=== PATIENT | female | born 1960 | race Caucasian/White ===

== ENCOUNTER → 2022-11-05 | Outpatient (CLI) | payer MEDICARE, BC ==
--- NOTE | 2022-11-07 20:34 | US ---
EXAMINATION TYPE: US arterial LE single level DATE OF EXAM: 11/05/2022 10:37 AM CLINICAL INDICATION: Female, 62 years old with history of I73.9; Pt states right foot cold, pt states wound center unable to obtain pulses right side History of: Smoker: No Hypertension: Yes Diabetic: Yes Hyperlipidemia: Yes TIA/CVA: No Previous Vascular Surgery: Prev CABG x 3 CAD: Yes MA: No Vascular Ulcers: Yes Claudication: No Gangrene: No Doppler Waveforms: Right: Multiphasic Left: Multiphasic Right Brachial Pressure: 146 Left Brachial Pressure: 142 Ankle-Brachial Indices: Right: 1.2 Left: 1.2 Toe Brachial Indices: Right: Unable to obtain due to small right great toe Left: Unable to obtain due to wound center bandages IMPRESSION: Normal brachial brachial indices bilaterally.
== END | disposition home or self-care (01) ==
LOC: RADUSWWP 10:15
PROVIDERS: ATTEND Podiatrist
DX: I73.9 Peripheral vascular disease, unspecified (principal); E11.621 Type 2 diabetes mellitus with foot ulcer; L97.522 Non-pressure chronic ulcer of other part of left foot with fat layer exposed; I25.118 Atherosclerotic heart disease of native coronary artery with other forms of angina pectoris; E78.5 Hyperlipidemia, unspecified; I10 Essential (primary) hypertension; E11.42 Type 2 diabetes mellitus with diabetic polyneuropathy; Z95.1 Presence of aortocoronary bypass graft
CPT/HCPCS: 93922

== ENCOUNTER 2023-01-28 09:00 | Inpatient (IN) | payer MEDICARE, BC ==
[2023-01-28] MEDS ORDERED: SODIUM CHLORIDE 0.9% 1,000 ML IV STA (09:24)
[2023-01-28] MEDS ORDERED: FAMOTIDINE 20 MG/2 ML VIAL IV STA (09:24)
--- NOTE | 2023-01-28 09:28 | ED ---
Recheck HPI - General Chief Complaint: Recheck/Abnormal Lab/Rx Stated Complaint: Abnormal labs Time Seen by Provider: 01/28/23 09:18 Source: patient, RN notes reviewed Mode of arrival: ambulatory Limitations: no limitations - History of Present Illness Initial Comments: This is a 62-year-old female who presents to the emergency department for abnormal blood work. Patient states that she had her left pinky toe amputated in September 2022 and has been on antibiotics since. She finished a 5 day course of Ciprofloxacin on 01/25, and later that day began Keflex. She had blood work done after receiving 1-2 doses of the Keflex on 01/25, and received a phone call yesterday saying that her kidney function was very poor and she needed to stop the antibiotics immediately and come to the emergency department. The surgery was done by Dr. Garcia, podiatry, at [facility]. However, he also practices here and she saw him at wound care this morning, and he also instructed her to come to the emergency department. She had been seeing an infectious disease special ist at [facility] as well, but does not wish to continue following up with him or at [facility]. She was told that the fourth toe may need to be amputated as well, which is part of the reason that she has been on so many antibiotics. Denies measuring any fevers, but states that she generally feels unwell. Reports problems with nausea and decreased urine output. States that she has not been able to urinate for 2 days. Denies any associated abdominal pain and she does not feel the urge to go. MD Complaint: abnormal lab - Related Data Home Medications Medication Instructions Recorded Confirmed Aspirin 81 mg PO DAILY 01/28/23 01/28/23 Atorvastatin Calcium [Lipitor] 40 mg PO HS 01/28/23 01/28/23 Lisinopril-Hctz 20-25 mg 1 tab PO DAILY 01/28/23 01/28/23 [Zestoretic 20-25] Metoprolol Tartrate [Lopressor] 50 mg PO BID 01/28/23 01/28/23 Pentoxifylline [TRENtal] 400 mg PO AC-TID 01/28/23 01/28/23 Vitamin B Complex 1 cap PO DAILY 01/28/23 01/28/23 amLODIPine [Norvasc] 2.5 mg PO DAILY 01/28/23 01/28/23 glipiZIDE [Glucotrol] 10 mg PO AC-BID 01/28/23 01/28/23 metFORMIN HCL 1,000 mg PO AC-BID 01/28/23 01/28/23 Allergies Allergy/AdvReac Type Severity Reaction Status Date / Time No Known Allergies Allergy Verified 01/28/23 10:35 Review of Systems ROS Statement: Those systems with pertinent positive or pertinent negative responses have been documented in the HPI. ROS Other: All systems not noted in ROS Statement are negative. Past Medical History Past Medical History: Coronary Artery Disease (CAD), Heart Failure, Diabetes Mellitus, Hypertension History of Any Multi-Drug Resistant Organisms: MRSA Date of last positivie culture/infection: 12/31/22 MDRO Source:: Left Foot Past Surgical History: Joint Replacement, Orthopedic Surgery Past Psychological History: No Psychological Hx Reported Smoking Status: Never smoker Past Alcohol Use History: None Reported Past Drug Use History: None Reported General Exam Limitations: no limitations General appearance: alert, in no apparent distress Head exam: Present: atraumatic, normocephalic, normal inspection Respiratory exam: Present: normal lung sounds bilaterally. Absent: respiratory distress, wheezes, rales, rhonchi, stridor Cardiovascular Exam: Present: regular rate, normal rhythm, normal heart sounds. Absent: systolic murmur, diastolic murmur, rubs, gallop, clicks Extremities exam: Present: other (Left foot bandage in place) Neurological exam: Present: alert, oriented X3, CN II-XII intact Psychiatric exam: Present: normal affect, normal mood Course Vital Signs 01/28/23 01/28/23 01/28/23 09:08 10:12 11:45 Temperature 98.1 F 97.4 F L Pulse Rate 59 L 56 L 71 Respiratory 20 17 18 Rate Blood Pressure 114/75 102/81 108/52 O2 Sat by Pulse 99 98 100 Oximetry 01/28/23 12:06 Temperature Pulse Rate 73 Respiratory 18 Rate Blood Pressure 101/54 O2 Sat by Pulse 100 Oximetry Medical Decision Making - Medical Decision Making This is a 62-year-old female who presents to the emergency department for abnormal blood work demonstrating poor renal function. Was pt. sent in by a medical professional or institution? @ -Yes, Dr. Garcia and infectious disease Did you speak to anyone other than the patient for history? @ -No Did you review nursing and triage notes? @ -Yes, and I agree, it is accurate with regards to the patient's symptoms. Were old charts reviewed? @ -Yes, XR of the left foot from 01/14/23, demonstrating concerning changes suspicious for osteomyelitis in the areas of the fourth toe and amputation site of the fifth toe. Differential Diagnosis? @ -Differential Poor Renal Function: Dehydration, medication, diabetes, HTN, infection, this is not meant to be an all-inclusive list. EKG interpreted by me (3pts min.)? @ -EKG interpreted by me demonstrating the following: Sinus bradycardia. Ventricular rate 57 beats per minute, TN interval 169 ms, QRS duration 80 ms, QTC 221 ms. X-rays interpreted by me (1pt min.)? @ -X-ray of the left foot obtained. My interpretation identifies lucencies throughout the fourth metatarsal shaft. CT interpreted by me (1pt min.)? @ -Not obtained U/S interpreted by me (1pt. min.)? @ -Not obtained What testing was considered but not performed? (CT, X-rays, U/S, labs)? Why? @ -None What meds were considered but not given? Why? @ -None Did you discuss the management of the patient with other professionals? @ -Yes, Dr. Castro, nephrology, who advised hyperkalemia cocktail with D5 and bicarb drip. Pharmacy recommended Daptomycin for antibiotic management. Dr. Callahan accepts the patient for admission. Did you reconcile home meds? @ -No Was smoking cessation discussed for >3mins.? @ -No Was critical care preformed (if so, how long)? @ -No Were there social determinants of health that impacted care today? How? (Homelessness, low income, unemployed, alcoholism, drug addiction, transportation, low edu. Level, literacy, decrease access to med. care, fpc, rehab)? @ -No Was there de-escalation of care discussed even if they declined? (Discuss DNR or withdrawal of care, Hospice)? @ -No What co-morbidities impacted this encounter? (DM, HTN, Smoking, COPD, CAD, Cancer, CVA, Hep., AIDS, mental health diagnosis, sleep apnea, morbid obesity)? @ -DM Was patient admitted / discharged? @ -Admitted. Lab work obtained revealing leukocytosis with a WBC of 14.4 and lactic acid of 6.3. She has multiple electrolyte abnormalities, including a potassium of 6.6, carbon dioxide of 9, creatinine of 9.73, and GFR 4. Phosphorus is 13.7. X-ray of the left foot obtained as well revealing concern for ongoing osteomyelitis at the fourth MTP joint with progressive osteolysis an d permeative lucency when compared with the x-ray on 01/14/23. Patient was given a hyperkalemia cocktail consisting of Lokelma, insulin, dextrose, sodium bicarbonate, and calcium gluconate. Case discussed with Dr. Castro, nephrology, who also advised a dextrose with bicarb drip. This was also ordered. I discussed the patient's case with pharmacy, given the concern for osteomyelitis with severe renal failure. He advised daptomycin in place of vancomycin due to it being slightly less nephrotoxic. Blood cultures and daptomycin ordered. Nephrology also requested a vascular consult for stat dialysis port placement. Patient admitted to medicine for hyperkalemia, renal failure, and osteomyelitis. Consult placed for Dr. Garcia, infectious disease, and nephrology, who already evaluated the patient. Dr. Ruano, vascular surgery, took the patient to the Incident Response Coordinator from the emergency department for stat dialysis port placement. Baez catheter was also placed due to lack of urine output. Undiagnosed new problem with uncertain prognosis? @ -None Drug Therapy requiring intensive monitoring for toxicity (Heparin, Nitro, Insulin, Cardizem)? @ -None Were any procedures done? @ -None Diagnosis/symptom? @ -Osteomyelitis, renal failure, hyperkalemia Acute, or Chronic, or Acute on Chronic? @ -Acute Uncomplicated (without systemic symptoms) or Complicated (systemic symptoms)? @ -Complicated Side effects of treatment? @ -None Exacerbation, Progression, or Severe Exacerbation] @ -Not applicable Poses a threat to life or bodily function? @ -Yes This case was discussed in detail with the attending ED physician, Dr. Licea. Presentation, findings, and treatment plan discussed in detail as well. - Lab Data Result diagrams: 01/28/23 09:28 01/28/23 13:25 Lab Results 01/28/23 01/28/23 01/28/23 Range/Units 09:28 09:28 09:28 WBC 14.4 H (3.8-10.6) k/uL RBC 3.85 (3.80-5.40) m/uL Hgb 11.8 (11.4-16.0) gm/dL Hct 35.9 (34.0-46.0) % MCV 93.2 (80.0-100.0) fL MCH 30.7 (25.0-35.0) pg MCHC 32.9 (31.0-37.0) g/dL RDW 15.3 (11.5-15.5) % Plt Count 483 H (150-450) k/uL MPV 7.9 Neutrophils % 84 % Lymphocytes % 12 % Monocytes % 2 % Eosinophils % 0 % Basophils % 0 % Neutrophils # 12.1 H (1.3-7.7) k/uL Lymphocytes # 1.7 (1.0-4.8) k/uL Monocytes # 0.3 (0-1.0) k/uL Eosinophils # 0.1 (0-0.7) k/uL Basophils # 0.1 (0-0.2) k/uL ESR 117 H (0-30) mm/Hr Sodium 137 (137-145) mmol/L Potassium 6.6 H* (3.5-5.1) mmol/L Chloride 97 L (98-107) mmol/L Carbon Dioxide 9 L* (22-30) mmol/L Anion Gap 31 mmol/L BUN 103 H* (7-17) mg/dL Creatinine 9.73 H* (0.52-1.04) mg/dL Est GFR (CKD-EPI)AfAm 4 (>60 ml/min/1.73 sqM) Est GFR (CKD-EPI)NonAf 4 (>60 ml/min/1.73 sqM) Glucose 113 H (74-99) mg/dL Lactic Ac Sepsis Rflx Plasma Lactic Acid Lobtio 6.3 H* (0.7-2.0) mmol/L Calcium 9.6 (8.4-10.2) mg/dL Phosphorus (2.5-4.5) mg/dL Magnesium (1.6-2.3) mg/dL Total Bilirubin 0.4 (0.2-1.3) mg/dL AST 32 (14-36) U/L ALT 57 H (4-34) U/L Alkaline Phosphatase 60 (38-126) U/L C-Reactive Protein 5.3 H (<1.0) mg/dL Total Protein 7.8 (6.3-8.2) g/dL Albumin 4.3 (3.5-5.0) g/dL 01/28/23 01/28/23 Range/Units 09:28 10:03 WBC (3.8-10.6) k/uL RBC (3.80-5.40) m/uL Hgb (11.4-16.0) gm/dL Hct (34.0-46.0) % MCV (80.0-100.0) fL MCH (25.0-35.0) pg MCHC (31.0-37.0) g/dL RDW (11.5-15.5) % Plt Count (150-450) k/uL MPV Neutrophils % % Lymphocytes % % Monocytes % % Eosinophils % % Basophils % % Neutrophils # (1.3-7.7) k/uL Lymphocytes # (1.0-4.8) k/uL Monocytes # (0-1.0) k/uL Eosinophils # (0-0.7) k/uL Basophils # (0-0.2) k/uL ESR (0-30) mm/Hr Sodium (137-145) mmol/L Potassium (3.5-5.1) mmol/L Chloride (98-107) mmol/L Carbon Dioxide (22-30) mmol/L Anion Gap mmol/L BUN (7-17) mg/dL Creatinine (0.52-1.04) mg/dL Est GFR (CKD-EPI)AfAm (>60 ml/min/1.73 sqM) Est GFR (CKD-EPI)NonAf (>60 ml/min/1.73 sqM) Glucose (74-99) mg/dL Lactic Ac Sepsis Rflx Y Plasma Lactic Acid Lobito (0.7-2.0) mmol/L Calcium (8.4-10.2) mg/dL Phosphorus 13.7 H* (2.5-4.5) mg/dL Magnesium 1.8 (1.6-2.3) mg/dL Total Bilirubin (0.2-1.3) mg/dL AST (14-36) U/L ALT (4-34) U/L Alkaline Phosphatase (38-126) U/L C-Reactive Protein (<1.0) mg/dL Total Protein (6.3-8.2) g/dL Albumin (3.5-5.0) g/dL - Radiology Data Radiology results: report reviewed, image reviewed Disposition Clinical Impression: Osteomyelitis of left foot, Hyperkalemia, SEAN (acute kidney injury) Disposition: ADMITTED IP TO THIS HOSP
[2023-01-28 09:54] LABS: Basophils # (A) 0.1 k/uL (0-0.2); Basophils % (A) 0 %; Eosinophils # (A) 0.1 k/uL (0-0.7); Eosinophils % (A) 0 %; HCT 35.9 % (34.0-46.0); HGB 11.8 gm/dL (11.4-16.0); Lymphocytes # (A) 1.7 k/uL (1.0-4.8); Lymphocytes % (A) 12 %; MCH 30.7 pg (25.0-35.0); MCHC 32.9 g/dL (31.0-37.0); MCV 93.2 fL (80.0-100.0); Mean Platelet Volume 7.9; Monocytes # (A) 0.3 k/uL (0-1.0); Monocytes % (A) 2 %; Neutrophils # (A) 12.1 k/uL (1.3-7.7); Neutrophils % (A) 84 %; Platelet Count 483 k/uL (150-450); RBC 3.85 m/uL (3.80-5.40); RDW 15.3 % (11.5-15.5); WBC 14.4 k/uL (3.8-10.6)
[2023-01-28 10:02] LABS: ALT 57 U/L (4-34); AST 32 U/L (14-36); African American GFR (CKD) 4 (>60 ml/min/1.73 sqM); Albumin 4.3 g/dL (3.5-5.0); Alkaline Phosphatase 60 U/L (38-126); Anion Gap 31 mmol/L; C Reactive Protein 5.3 mg/dL (<1.0); Calcium 9.6 mg/dL (8.4-10.2); Chloride 97 mmol/L (98-107); Glucose 113 mg/dL (74-99); Non-African American GFR(CKD) 4 (>60 ml/min/1.73 sqM); Sodium 137 mmol/L (137-145); Total Bilirubin 0.4 mg/dL (0.2-1.3); Total Protein 7.8 g/dL (6.3-8.2)
[2023-01-28 10:13] LABS: Blood Urea Nitrogen 103 mg/dL (7-17); Carbon Dioxide 9 mmol/L (22-30)
[2023-01-28 10:17] LABS: Potassium 6.6 mmol/L (3.5-5.1)
--- NOTE | 2023-01-28 10:17 | XR ---
EXAMINATION TYPE: XR foot complete 3 views LT DATE OF EXAM: 01/28/2023 Comparison: 01/14/2023 Clinical History: 62-year-old female Infection and pain. Findings: Previous osteotomy at the level of the proximal shaft of the fifth metatarsal. No progressive osseous destruction identified at the osteotomy margin. However, there is bony destruction redemonstrated centered at the fourth MTP joint with loss of the f ourth metatarsal head and neck. There is further permeative lucencies seen throughout the mid to dist al fourth metatarsal shaft and further osteolysis involving the base of the proximal phalanx. Suspicious and needle fragments retained in the plantar soft tissues of the great toe. Some dorsal di slocations of the second and third toes. Severe hallux valgus deformity. Moderate-sized plantar heel spur. Impression: 1. Correlate for ongoing osteomyelitis centered at the fourth MTP joint with progressive osteolysis a nd permeative lucency compared to 01/14/2023. 2. No progressive abnormality at the fifth amputation margin. There may have been some interval heali ng change here compared to 01/14/2023.
[2023-01-28] MEDS ORDERED: MAG HYDROX/AL HYDROX/SIMETH 30 ML, HYOSCYAMINE ELIXIR 10 ML, LIDOCAINE VISCOUS 2% 10 ML PO STA ×3 (10:22)
[2023-01-28] MEDS ORDERED: ONDANSETRON 4 MG/2 ML VIAL IVP STA (10:22)
[2023-01-28] MEDS ORDERED: CALCIUM GLUCONATE IN NACL 1 GM in SALINE 1 100ML.BAG IVPB ONE (10:32)
[2023-01-28] MEDS ORDERED: DEXTROSE 50% SYRINGE 50 ML IVP ONE (10:32)
[2023-01-28] MEDS ORDERED: INSULIN REGULAR 100 UNIT/ML VIAL (IV) IV ONE (10:32)
[2023-01-28] MEDS ORDERED: SODIUM ZIRCONIUM CYCLOSILICATE 10 GM PACKET PO ONE (10:32)
[2023-01-28] MEDS ORDERED: SODIUM BICARB 8.4% 50 ML SYR (1 MEQ/ML) IV STA (10:40)
[2023-01-28] MEDS ORDERED: DEXTROSE 10% IN WATER 500 ML in EMPTY BAG 1 BAG IV SCH (10:45)
[2023-01-28] MEDS ORDERED: ACETAMINOPHEN TAB 325 MG TAB PO PRN (11:04)
[2023-01-28] MEDS ORDERED: NALOXONE 0.4 MG/ML 1 ML VIAL IV PRN (11:04)
[2023-01-28] MEDS ORDERED: ONDANSETRON 4 MG/2 ML VIAL IVP PRN (11:04)
[2023-01-28] MEDS ORDERED: DEXTROSE 5% IN WATER 1,000 ML with SODIUM BICARB (1 MEQ/ML) 100 ML IV SCH (11:30)
[2023-01-28] MEDS: DAPTOmycin 500 MG in SODIUM CHLORIDE 0.9% 50 ML IVPB SCH (11:35)
[2023-01-28 11:59] LABS: Magnesium 1.8 mg/dL (1.6-2.3)
--- NOTE | 2023-01-28 12:11 | P.NPCON ---
History of Present Illness - Reason for Consult acute renal failure - History of Present Illness Reason for consultation: Acute kidney injury History of present illness: Patient is a 62-year-old female seen in consultation for acute kidney injury. Patient's creatinine in October 2022 was 0.87. This admission was elevated at 9.73. Potassium is elevated at 6.6 and patient is extremely acidotic with a bi carb level of 9. Lactic acid is elevated at 6.3. Patient is awake and alert. Patient states she underwent left small toe habitation in September 2022 and has been on multiple antibiotics since. Patient states she is still being treated and may require further amputations. Patient states she was on Bactrim but hasn't taken it in over a week as the antibiotic was switched to a different one by infectious disease. She was also on lisinopril, thiazide diuretic as well as metformin prior to admission. She denies use of nonsteroidals. She does have history of coronary disease and is status post CABG. She hasn't voided in the last 2 days. No vomiting or diarrhea. No nausea. Blood pressure stable. Denies family history of renal disease. Vital signs are stable. General: No acute distress. HEENT: Head exam is unremarkable. LUNGS: No audible rhonchi or wheezes. HEART: Rate and Rhythm are regular. ABDOMEN: Nontender. EXTREMITITES: No edema. Past Medical History Past Medical History: Coronary Artery Disease (CAD), Heart Failure, Diabetes Mellitus, Hypertension History of Any Multi-Drug Resistant Organisms: MRSA Date of last positivie culture/infection: 12/31/22 MDRO Source:: Left Foot Past Surgical History: Joint Replacement, Orthopedic Surgery Past Psychological History: No Psychological Hx Reported Smoking Status: Never smoker Past Alcohol Use History: None Reported Past Drug Use History: None Reported Medications and Allergies Home Medications Medication Instructions Recorded Confirmed Type Aspirin 81 mg PO DAILY 01/28/23 01/28/23 History Atorvastatin Calcium [Lipitor] 40 mg PO HS 01/28/23 01/28/23 History Lisinopril-Hctz 20-25 mg 1 tab PO DAILY 01/28/23 01/28/23 History [Zestoretic 20-25] Metoprolol Tartrate [Lopressor] 50 mg PO BID 01/28/23 01/28/23 History Pentoxifylline [TRENtal] 400 mg PO AC-TID 01/28/23 01/28/23 History Vitamin B Complex 1 cap PO DAILY 01/28/23 01/28/23 History amLODIPine [Norvasc] 2.5 mg PO DAILY 01/28/23 01/28/23 History glipiZIDE [Glucotrol] 10 mg PO AC-BID 01/28/23 01/28/23 History metFORMIN HCL 1,000 mg PO AC-BID 01/28/23 01/28/23 History Allergies Allergy/AdvReac Type Severity Reaction Status Date / Time No Known Allergies Allergy Verified 01/28/23 10:35 Physical Exam Vitals: Vital Signs Temp Pulse Resp BP Pulse Ox 01/28/23 11:45 71 18 108/52 100 01/28/23 10:12 97.4 F L 56 L 17 102/81 98 01/28/23 09:08 98.1 F 59 L 20 114/75 99 Intake and Output 01/27/23 01/28/23 01/28/23 22:59 06:59 14:59 Output Total 20 Balance -20 Output: Urine 20 Uretheral (Baez) 20 Other: Weight 79.379 kg Results - Lab Results Most recent lab results Calcium 9.6 mg/dL (8.4-10.2) 01/28/23 09:28 01/28/23 09:28 01/28/23 09:28 Assessment and Plan Plan: Assessment: 1. Acute kidney injury secondary to ATN. Worsened with the use of diuretic, HUMA inhibitor. Baseline creatinine near 0.87 from October 2022 and elevated at 9.73 this admission. 2. Hyperkalemia secondary to acute kidney injury, metabolic acidosis and lisinopril. 3. Metabolic acidosis secondary to acute kidney injury, lactic acidosis, metformin. 4. Benign hypertension. Controlled. 5. Left foot osteomyelitis. Plan: Patient received IV calcium gluconate, IV insulin with D50, sodium bicarbonate as well as lokelma. Start bicarb drip at 100 mL an hour. Insert Baez catheter for strict is and os. Check renal ultrasound. Check UA. Check urine eosinophils. Check serologies. Consult vascular surgery for dialysis catheter placement. Plan for hemodialysis today. Continue to assess need for renal replacement therapy and daily basis. Thank you for the consultation. I will continue to follow the patient with you during her hospital stay.
[2023-01-28 12:15] LABS: Phosphorus 13.7 mg/dL (2.5-4.5)
[2023-01-28] MEDS: DEXTROSE 5% IN WATER 1,000 ML with SODIUM BICARB (1 MEQ/ML) 150 ML IV SCH ×2 (12:25→23:50)
[2023-01-28 13:03] LABS: Amorphous Sediment,Urine Occasional /hpf; Appearance,Urine Turbid (Clear); Bacteria,Urine Rare /hpf; Bilirubin,Urine Negative (Negative); Blood,Urine Small (Negative); Color,Urine Yellow; Glucose,Urine (UA) Trace (Negative); Ketones,Urine Trace (Negative); Leukocyte Esterase,Urine Trace (Negative); Mucus,Urine Occasional /hpf; Nitrite,Urine Negative (Negative); PH, Urine 5.5 (5.0-8.0); Protein,Urine 2+ (Negative); RBC,Urine 6 /hpf (0-5); Specific Gravity,Urine 1.018 (1.001-1.035); Squamous Epithelial Cell,Urine 7 /hpf (0-4); WBC,Urine 19 /hpf (0-5)
--- NOTE | 2023-01-28 13:36 | P.GSCN ---
History of Present Illness History of present illness: 62-year-old white female, patient came to the emergency room patient has been coming to the wound clinic post toe amputation for on the right side with open wound patient has been antibiotic for foot wound and patient today creatinine is 9.73 and potassium 6.5 patient is acidotic consulted for placement of a dialysis catheter this patient has history of CABG in the past diabetes Neck examination neck is supple no bruit appreciated Chest is clear few rhonchi at the lung bases first and second sound present abdomen soft nontender Patient has a post toe amputation toe open wound under care of Dr. Garcia Plan placement of the dialysis catheter risk and complication discussed Past Medical History Past Medical History: Coronary Artery Disease (CAD), Heart Failure, Diabetes Mellitus, Hypertension History of Any Multi-Drug Resistant Organisms: MRSA Year Discovered:: 12/31/22 MDRO Source:: Left Foot Past Surgical History: Joint Replacement, Orthopedic Surgery Past Psychological History: No Psychological Hx Reported Smoking Status: Never smoker Past Alcohol Use History: None Reported Past Drug Use History: None Reported Medications and Allergies Home Medications Medication Instructions Recorded Confirmed Type Aspirin 81 mg PO DAILY 01/28/23 01/28/23 History Atorvastatin Calcium [Lipitor] 40 mg PO HS 01/28/23 01/28/23 History Lisinopril-Hctz 20-25 mg 1 tab PO DAILY 01/28/23 01/28/23 History [Zestoretic 20-25] Metoprolol Tartrate [Lopressor] 50 mg PO BID 01/28/23 01/28/23 History Pentoxifylline [TRENtal] 400 mg PO AC-TID 01/28/23 01/28/23 History Vitamin B Complex 1 cap PO DAILY 01/28/23 01/28/23 History amLODIPine [Norvasc] 2.5 mg PO DAILY 01/28/23 01/28/23 History glipiZIDE [Glucotrol] 10 mg PO AC-BID 01/28/23 01/28/23 History metFORMIN HCL 1,000 mg PO AC-BID 01/28/23 01/28/23 History Allergies Allergy/AdvReac Type Severity Reaction Status Date / Time No Known Allergies Allergy Verified 01/28/23 10:35 Surgical - Exam Vital Signs Temp Pulse Resp BP Pulse Ox 98.1 F 59 L 20 114/75 99 01/28/23 09:08 01/28/23 09:08 01/28/23 09:08 01/28/23 09:08 01/28/23 09:08 Results - Labs 01/28/23 09:28 01/28/23 09:28 Abnormal Lab Results - Last 24 Hours (Table) 01/28/23 01/28/23 01/28/23 Range/Units 09:28 09:28 09:28 WBC 14.4 H (3.8-10.6) k/uL Plt Count 483 H (150-450) k/uL Neutrophils # 12.1 H (1.3-7.7) k/uL Potassium 6.6 H* (3.5-5.1) mmol/L Chloride 97 L (98-107) mmol/L Carbon Dioxide 9 L* (22-30) mmol/L BUN 103 H* (7-17) mg/dL Creatinine 9.73 H* (0.52-1.04) mg/dL Glucose 113 H (74-99) mg/dL Plasma Lactic Acid Lobito 6.3 H* (0.7-2.0) mmol/L Phosphorus (2.5-4.5) mg/dL ALT 57 H (4-34) U/L C-Reactive Protein 5.3 H (<1.0) mg/dL Urine Appearance (Clear) Urine Protein (Negative) Urine Glucose (UA) (Negative) Urine Ketones (Negative) Urine Blood (Negative) Ur Leukocyte Esterase (Negative) Urine RBC (0-5) /hpf Urine WBC (0-5) /hpf Ur Squamous Epith Cells (0-4) /hpf Amorphous Sediment (None) /hpf Urine Bacteria (None) /hpf Urine Mucus (None) /hpf 01/28/23 01/28/23 01/28/23 Range/Units 09:28 12:14 12:20 WBC (3.8-10.6) k/uL Plt Count (150-450) k/uL Neutrophils # (1.3-7.7) k/uL Potassium (3.5-5.1) mmol/L Chloride (98-107) mmol/L Carbon Dioxide (22-30) mmol/L BUN (7-17) mg/dL Creatinine (0.52-1.04) mg/dL Glucose (74-99) mg/dL Plasma Lactic Acid Lobito 9.5 H* (0.7-2.0) mmol/L Phosphorus 13.7 H* (2.5-4.5) mg/dL ALT (4-34) U/L C-Reactive Protein (<1.0) mg/dL Urine Appearance Turbid H (Clear) Urine Protein 2+ H (Negative) Urine Glucose (UA) Trace H (Negative) Urine Ketones Trace H (Negative) Urine Blood Small H (Negative) Ur Leukocyte Esterase Trace H (Negative) Urine RBC 6 H (0-5) /hpf Urine WBC 19 H (0-5) /hpf Ur Squamous Epith Cells 7 H (0-4) /hpf Amorphous Sediment Occasional H (None) /hpf Urine Bacteria Rare H (None) /hpf Urine Mucus Occasional H (None) /hpf Diabetes panel 01/28/23 Range/Units 09:28 Sodium 137 (137-145) mmol/L Potassium 6.6 H* (3.5-5.1) mmol/L Chloride 97 L (98-107) mmol/L Carbon Dioxide 9 L* (22-30) mmol/L BUN 103 H* (7-17) mg/dL Creatinine 9.73 H* (0.52-1.04) mg/dL Glucose 113 H (74-99) mg/dL Calcium 9.6 (8.4-10.2) mg/dL AST 32 (14-36) U/L ALT 57 H (4-34) U/L Alkaline Phosphatase 60 (38-126) U/L Total Protein 7.8 (6.3-8.2) g/dL Albumin 4.3 (3.5-5.0) g/dL Calcium panel 01/28/23 01/28/23 Range/Units 09:28 09:28 Calcium 9.6 (8.4-10.2) mg/dL Phosphorus 13.7 H* (2.5-4.5) mg/dL Albumin 4.3 (3.5-5.0) g/dL Pituitary panel 01/28/23 Range/Units 09:28 Sodium 137 (137-145) mmol/L Potassium 6.6 H* (3.5-5.1) mmol/L Chloride 97 L (98-107) mmol/L Carbon Dioxide 9 L* (22-30) mmol/L BUN 103 H* (7-17) mg/dL Creatinine 9.73 H* (0.52-1.04) mg/dL Glucose 113 H (74-99) mg/dL Calcium 9.6 (8.4-10.2) mg/dL Adrenal panel 01/28/23 Range/Units 09:28 Sodium 137 (137-145) mmol/L Potassium 6.6 H* (3.5-5.1) mmol/L Chloride 97 L (98-107) mmol/L Carbon Dioxide 9 L* (22-30) mmol/L BUN 103 H* (7-17) mg/dL Creatinine 9.73 H* (0.52-1.04) mg/dL Glucose 113 H (74-99) mg/dL Calcium 9.6 (8.4-10.2) mg/dL Total Bilirubin 0.4 (0.2-1.3) mg/dL AST 32 (14-36) U/L ALT 57 H (4-34) U/L Alkaline Phosphatase 60 (38-126) U/L Total Protein 7.8 (6.3-8.2) g/dL Albumin 4.3 (3.5-5.0) g/dL
[2023-01-28] MEDS ORDERED: IV FLUID CONTINUATION 1,000 ML IV ONE (13:38)
[2023-01-28] MEDS ORDERED: LIDOCAINE 1% INJ 10MG/ML (20 ML MDV) SQ ONE (13:41)
[2023-01-28] MEDS ORDERED: fentaNYL (PF) 50 MCG/ML 2 ML AMP IVP ONE (13:41)
[2023-01-28] MEDS ORDERED: MIDAZOLAM 2 MG/2 ML VIAL IVP ONE (13:41)
--- NOTE | 2023-01-28 13:59 | US ---
EXAMINATION TYPE: US kidneys/renal and bladder DATE OF EXAM: 01/28/2023 COMPARISON: NONE CLINICAL INDICATION: Female, 62 years old with history of sean; SEAN. EXAM MEASUREMENTS: Right Kidney: 13.3 x 5.2 x 4.5 cm Left Kidney: 12.1 x 5.3 x 4.9 cm Right Kidney: Enlarged. Left Kidney: No hydronephrosis or masses seen. Bladder: Not distended, unable to evaluate. Bilateral Jets seen: No IMPRESSION: 1. Kidneys are mildly prominent right more so than left. No suspicious abnormalities by ultrasound. 2. Limited evaluation of the urinary bladder.
--- NOTE | 2023-01-28 14:12 | P.PCN ---
Description of Procedure: Preop diagnoses is acute chronic renal failure Posterior same Procedure note sound guided 20 same dialysis Placed right femoral approach patient brought to the Interface Developer. Prepped and draped applied sterile manner. Ultrasound-guided micropuncture introducer right femoral vein micropuncture guidewire was passed. Then we passed a dilator on the top of guidewire then we passed a regular guidewire which was parked in the inferior vena cava without any resistance dilator was advanced. The guidewire then replaced a dialysis catheter guidewire was removed flushed with heparin saline and Hep-Lock secured with 3-0 nylon patient for the procedure well
--- NOTE | 2023-01-28 14:28 | IR ---
EXAMINATION TYPE: IR cvc insert non tunneled DATE OF EXAM: 01/28/2023 COMPARISON: NONE HISTORY: Fluoroscopy time. Fluoroscopy was provided to the referring clinician.
[2023-01-28 14:45] LABS: Glucose,Whole Blood 102 mg/dL (70-110)
[2023-01-28] MEDS ORDERED: DEXTROSE 50% SYRINGE 50 ML IVP PRN ×2 (14:55)
--- NOTE | 2023-01-28 14:56 | P.HPIM ---
History of Present Illness H&P Date: 01/28/23 History of present illness; patient is 62-year-old lady with past medical history significant for hyperlipidemia, hypertension, diabetes mellitus presented to the ER for abnormal labs. Patient stated that she was all right 2 days back he started feeling sick. Patient was feeling lethargic and tired. Patient also having nausea and vomiting afterwards. Patient recently had a left toe amputated in September and was on antibiotics for osteomyelitis. Patient went to see her ID doctor yesterday and they ordered blood work. Her blood work came back showing worsening renal functions for which her ID doctor told her to come to the ER. Initial lab work done in the ER showed WBC 14.4, hemoglobin 11.8, platelet count 43, sodium 137, potassium 6.6, BUN 103, creatinine 19.73, lactate 6.3 phosphorous 13.7 X-ray of the foot done showed osteomyelitis Centered at the fourth MTP joint EKG done in the ER Patient was admitted to medicine service REVIEW OF SYSTEMS: CONSTITUTIONAL: No fever, complaining of lethargy and tiredness HEENT: No recent visual problems or hearing problems. Denied any sore throat. CARDIOVASCULAR: No chest pain, orthopnea, PND, no palpitations, no syncope. PULMONARY: No shortness of breath, no cough, no hemoptysis. GASTROINTESTINAL as mentioned above NEUROLOGICAL: No headaches, no weakness, no numbness. HEMATOLOGICAL: Denies any bleeding or petechiae. GENITOURINARY: Denies any burning micturition, frequency, or urgency. MUSCULOSKELETAL/RHEUMATOLOGICAL: Denies any joint pain, swelling, or any muscle pain. ENDOCRINE: Denies any polyuria or polydipsia. The rest of the 14-point review of systems is negative. PHYSICAL EXAMINATION: GENERAL: The patient is alert and oriented x3, not in any acute distress. Well developed, well nourished. HEENT: Pupils are round and equally reacting to light. EOMI. No scleral icterus. No conjunctival pallor. Normocephalic, atraumatic. No pharyngeal erythema. No thyromegaly. CARDIOVASCULAR: S1 and S2 present. No murmurs, rubs, or gallops. PULMONARY: Chest is clear to auscultation, no wheezing or crackles. ABDOMEN: Soft, nontender, nondistended, normoactive bowel sounds. No palpable organomegaly. MUSCULOSKELETAL: No joint swelling or deformity. Left foot bandaged seen EXTREMITIES: No cyanosis, clubbing, or pedal edema. NEUROLOGICAL: Gross neurological examination did not reveal any focal deficits. SKIN: No rashes. Assessment and plan Hyperkalemia Acute kidney injury History of left foot osteomyelitis Lactic acidosis Hyperphosphatemia Hyperlipidemia [id number] diabetes mellitus Hypertension Monitor vital signs Monitor CBC Monitor CMP Continue telemetry monitoring Follow-up on blood cultures monitor lactate levels Patient was started on hyperkalemia protocol Continue bicarb drip Continue daptomycin Monitor blood sugar levels, continue sliding scale insulin ID consulted Nephrology consulted, recommendeddialysis catheter placement and initiating patient on dialysis Vascular surgery consulted Labs and medication were reviewed.. Continue same treatment. Continue with symptomatic treatment. Resume home medication. Monitor labs and vitals. DVT and GI prophylaxis. Further recommendations as per clinical course of the patient Dictation was produced using [employer] dictation software. please excuse any grammatical, word or spelling errors. Past Medical History Past Medical History: Coronary Artery Disease (CAD), Heart Failure, Diabetes Mellitus, Hypertension History of Any Multi-Drug Resistant Organisms: MRSA Date of last positivie culture/infection: 12/31/22 MDRO Source:: Left Foot Past Surgical History: Joint Replacement, Orthopedic Surgery Past Psychological History: No Psychological Hx Reported Smoking Status: Never smoker Past Alcohol Use History: None Reported Past Drug Use History: None Reported Medications and Allergies Home Medications Medication Instructions Recorded Confirmed Type Aspirin 81 mg PO DAILY 01/28/23 01/28/23 History Atorvastatin Calcium [Lipitor] 40 mg PO HS 01/28/23 01/28/23 History Lisinopril-Hctz 20-25 mg 1 tab PO DAILY 01/28/23 01/28/23 History [Zestoretic 20-25] Metoprolol Tartrate [Lopressor] 50 mg PO BID 01/28/23 01/28/23 History Pentoxifylline [TRENtal] 400 mg PO AC-TID 01/28/23 01/28/23 History Vitamin B Complex 1 cap PO DAILY 01/28/23 01/28/23 History amLODIPine [Norvasc] 2.5 mg PO DAILY 01/28/23 01/28/23 History glipiZIDE [Glucotrol] 10 mg PO AC-BID 01/28/23 01/28/23 History metFORMIN HCL 1,000 mg PO AC-BID 01/28/23 01/28/23 History Allergies Allergy/AdvReac Type Severity Reaction Status Date / Time No Known Allergies Allergy Verified 01/28/23 10:35 Physical Exam Vitals: Vital Signs Temp Pulse Resp BP Pulse Ox 01/28/23 12:06 73 18 101/54 100 01/28/23 11:45 71 18 108/52 100 01/28/23 10:12 97.4 F L 56 L 17 102/81 98 01/28/23 09:08 98.1 F 59 L 20 114/75 99 Intake and Output 01/27/23 01/28/23 01/28/23 22:59 06:59 14:59 Intake Total 10 Output Total 20 Balance -10 Intake: IV 10 Output: Urine 20 Uretheral (Baez) 20 Other: Weight 79.379 kg Results CBC & Chem 7: 01/28/23 09:28 01/28/23 13:25 Labs: Abnormal Lab Results - Last 24 Hours (Table) 01/28/23 01/28/23 01/28/23 Range/Units 09:28 09:28 09:28 WBC 14.4 H (3.8-10.6) k/uL Plt Count 483 H (150-450) k/uL Neutrophils # 12.1 H (1.3-7.7) k/uL Potassium 6.6 H* (3.5-5.1) mmol/L Chloride 97 L (98-107) mmol/L Carbon Dioxide 9 L* (22-30) mmol/L BUN 103 H* (7-17) mg/dL Creatinine 9.73 H* (0.52-1.04) mg/dL Glucose 113 H (74-99) mg/dL Plasma Lactic Acid Lobito 6.3 H* (0.7-2.0) mmol/L Phosphorus (2.5-4.5) mg/dL ALT 57 H (4-34) U/L C-Reactive Protein 5.3 H (<1.0) mg/dL Urine Appearance (Clear) Urine Protein (Negative) Urine Glucose (UA) (Negative) Urine Ketones (Negative) Urine Blood (Negative) Ur Leukocyte Esterase (Negative) Urine RBC (0-5) /hpf Urine WBC (0-5) /hpf Ur Squamous Epith Cells (0-4) /hpf Amorphous Sediment (None) /hpf Urine Bacteria (None) /hpf Urine Mucus (None) /hpf 01/28/23 01/28/23 01/28/23 Range/Units 09:28 12:14 12:20 WBC (3.8-10.6) k/uL Plt Count (150-450) k/uL Neutrophils # (1.3-7.7) k/uL Potassium (3.5-5.1) mmol/L Chloride (98-107) mmol/L Carbon Dioxide (22-30) mmol/L BUN (7-17) mg/dL Creatinine (0.52-1.04) mg/dL Glucose (74-99) mg/dL Plasma Lactic Acid Lobito 9.5 H* (0.7-2.0) mmol/L Phosphorus 13.7 H* (2.5-4.5) mg/dL ALT (4-34) U/L C-Reactive Protein (<1.0) mg/dL Urine Appearance Turbid H (Clear) Urine Protein 2+ H (Negative) Urine Glucose (UA) Trace H (Negative) Urine Ketones Trace H (Negative) Urine Blood Small H (Negative) Ur Leukocyte Esterase Trace H (Negative) Urine RBC 6 H (0-5) /hpf Urine WBC 19 H (0-5) /hpf Ur Squamous Epith Cells 7 H (0-4) /hpf Amorphous Sediment Occasional H (None) /hpf Urine Bacteria Rare H (None) /hpf Urine Mucus Occasional H (None) /hpf 01/28/23 Range/Units 13:25 WBC (3.8-10.6) k/uL Plt Count (150-450) k/uL Neutrophils # (1.3-7.7) k/uL Potassium 5.4 H (3.5-5.1) mmol/L Chloride (98-107) mmol/L Carbon Dioxide (22-30) mmol/L BUN (7-17) mg/dL Creatinine (0.52-1.04) mg/dL Glucose (74-99) mg/dL Plasma Lactic Acid Lobito (0.7-2.0) mmol/L Phosphorus (2.5-4.5) mg/dL ALT (4-34) U/L C-Reactive Protein (<1.0) mg/dL Urine Appearance (Clear) Urine Protein (Negative) Urine Glucose (UA) (Negative) Urine Ketones (Negative) Urine Blood (Negative) Ur Leukocyte Esterase (Negative) Urine RBC (0-5) /hpf Urine WBC (0-5) /hpf Ur Squamous Epith Cells (0-4) /hpf Amorphous Sediment (None) /hpf Urine Bacteria (None) /hpf Urine Mucus (None) /hpf
[2023-01-28 16:00] LABS: Albumin 3.4 d/dL (3.8-4.9); Protein, Total 6.2 d/dL (6.2-8.2)
[2023-01-28 16:06] LABS: Erythrocyte Sedimentation Rate 117 mm/Hr (0-30)
[2023-01-28 17:20] LABS: Hepatitis A Antibody IgM Nonreactive; Hepatitis B Core IgM Nonreactive; Hepatitis B Surface Antigen Nonreactive; Hepatitis C IgG Antibody Nonreactive
[2023-01-28 17:31] LABS: Glucose,Whole Blood 85 mg/dL (70-110)
[2023-01-28] MEDS: INSULIN ASPART (NovoLOG) 100 UNIT/ML VIAL SQ SCH ×2 (17:49→20:50)
--- NOTE | 2023-01-28 18:07 | P.GSHP ---
History of Present Illness H&P Date: 01/28/23 Chief Complaint: Osteomyelitis left foot with acute renal failure Patient is seen for consultation regarding the osteomyelitis infection of the left foot. Patient was seen in the wound care clinic today and was in renal failure. Patient was sent to the emergency room for admission and treatment. Past Medical History Past Medical History: Coronary Artery Disease (CAD), Heart Failure, Diabetes Mellitus, Hypertension History of Any Multi-Drug Resistant Organisms: MRSA Date of last positivie culture/infection: 12/31/22 MDRO Source:: Left Foot Past Surgical History: Joint Replacement, Orthopedic Surgery Additional Past Surgical History / Comment(s): RIGHT FOOT STEEL RODS LEFT BABY TOE AMPUTATION Past Psychological History: No Psychological Hx Reported Smoking Status: Never smoker Past Alcohol Use History: None Reported Past Drug Use History: None Reported Medications and Allergies Home Medications Medication Instructions Recorded Confirmed Type Aspirin 81 mg PO DAILY 01/28/23 01/28/23 History Atorvastatin Calcium [Lipitor] 40 mg PO HS 01/28/23 01/28/23 History Lisinopril-Hctz 20-25 mg 1 tab PO DAILY 01/28/23 01/28/23 History [Zestoretic 20-25] Metoprolol Tartrate [Lopressor] 50 mg PO BID 01/28/23 01/28/23 History Pentoxifylline [TRENtal] 400 mg PO AC-TID 01/28/23 01/28/23 History Vitamin B Complex 1 cap PO DAILY 01/28/23 01/28/23 History amLODIPine [Norvasc] 2.5 mg PO DAILY 01/28/23 01/28/23 History glipiZIDE [Glucotrol] 10 mg PO AC-BID 01/28/23 01/28/23 History metFORMIN HCL 1,000 mg PO AC-BID 01/28/23 01/28/23 History Allergies Allergy/AdvReac Type Severity Reaction Status Date / Time adhesive tape AdvReac Rash/Hives Verified 01/28/23 17:39 latex AdvReac Rash/Hives Verified 01/28/23 17:39 Surgical - Exam Vital Signs Temp Pulse Resp BP Pulse Ox 98.1 F 59 L 20 114/75 99 01/28/23 09:08 01/28/23 09:08 01/28/23 09:08 01/28/23 09:08 01/28/23 09:08 - Cardiovascular Diminished pedal pulses bilateral however good pedal flow with debridement of this wound on today's visit. - Integumentary Full-thickness ulceration of the left foot with decreased erythema decrease edema - Neurologic Patient has diabetic polyneuropathy of the feet stocking glove distribution up to including the lower legs bilateral - Musculoskeletal Amputation partial of the fifth ray of the left foot with residual osseous changes second 2 osteomyelitis of the left fourth metatarsal as well as base of the proximal phalanx fifth metatarsal base. Results - Labs 01/28/23 09:28 01/28/23 13:25 Abnormal Lab Results - Last 24 Hours (Table) 01/28/23 01/28/23 01/28/23 Range/Units 09:28 09:28 09:28 WBC 14.4 H (3.8-10.6) k/uL Plt Count 483 H (150-450) k/uL Neutrophils # 12.1 H (1.3-7.7) k/uL ESR 117 H (0-30) mm/Hr Potassium 6.6 H* (3.5-5.1) mmol/L Chloride 97 L (98-107) mmol/L Carbon Dioxide 9 L* (22-30) mmol/L BUN 103 H* (7-17) mg/dL Creatinine 9.73 H* (0.52-1.04) mg/dL Glucose 113 H (74-99) mg/dL Plasma Lactic Acid Lobito 6.3 H* (0.7-2.0) mmol/L Phosphorus (2.5-4.5) mg/dL ALT 57 H (4-34) U/L C-Reactive Protein 5.3 H (<1.0) mg/dL Albumin (PEP) (3.8-4.9) d/dL Urine Appearance (Clear) Urine Protein (Negative) Urine Glucose (UA) (Negative) Urine Ketones (Negative) Urine Blood (Negative) Ur Leukocyte Esterase (Negative) Urine RBC (0-5) /hpf Urine WBC (0-5) /hpf Ur Squamous Epith Cells (0-4) /hpf Amorphous Sediment (None) /hpf Urine Bacteria (None) /hpf Urine Mucus (None) /hpf IgA (60.0-350.0) mg/dL 01/28/23 01/28/23 01/28/23 Range/Units 09:28 12:14 12:14 WBC (3.8-10.6) k/uL Plt Count (150-450) k/uL Neutrophils # (1.3-7.7) k/uL ESR (0-30) mm/Hr Potassium (3.5-5.1) mmol/L Chloride (98-107) mmol/L Carbon Dioxide (22-30) mmol/L BUN (7-17) mg/dL Creatinine (0.52-1.04) mg/dL Glucose (74-99) mg/dL Plasma Lactic Acid Lobito 9.5 H* (0.7-2.0) mmol/L Phosphorus 13.7 H* (2.5-4.5) mg/dL ALT (4-34) U/L C-Reactive Protein (<1.0) mg/dL Albumin (PEP) 3.4 L (3.8-4.9) d/dL Urine Appearance (Clear) Urine Protein (Negative) Urine Glucose (UA) (Negative) Urine Ketones (Negative) Urine Blood (Negative) Ur Leukocyte Esterase (Negative) Urine RBC (0-5) /hpf Urine WBC (0-5) /hpf Ur Squamous Epith Cells (0-4) /hpf Amorphous Sediment (None) /hpf Urine Bacteria (None) /hpf Urine Mucus (None) /hpf IgA 357.0 H (60.0-350.0) mg/dL 01/28/23 01/28/23 01/28/23 Range/Units 12:20 13:25 15:05 WBC (3.8-10.6) k/uL Plt Count (150-450) k/uL Neutrophils # (1.3-7.7) k/uL ESR (0-30) mm/Hr Potassium 5.4 H (3.5-5.1) mmol/L Chloride (98-107) mmol/L Carbon Dioxide (22-30) mmol/L BUN (7-17) mg/dL Creatinine (0.52-1.04) mg/dL Glucose (74-99) mg/dL Plasma Lactic Acid Lobito 6.5 H* (0.7-2.0) mmol/L Phosphorus (2.5-4.5) mg/dL ALT (4-34) U/L C-Reactive Protein (<1.0) mg/dL Albumin (PEP) (3.8-4.9) d/dL Urine Appearance Turbid H (Clear) Urine Protein 2+ H (Negative) Urine Glucose (UA) Trace H (Negative) Urine Ketones Trace H (Negative) Urine Blood Small H (Negative) Ur Leukocyte Esterase Trace H (Negative) Urine RBC 6 H (0-5) /hpf Urine WBC 19 H (0-5) /hpf Ur Squamous Epith Cells 7 H (0-4) /hpf Amorphous Sediment Occasional H (None) /hpf Urine Bacteria Rare H (None) /hpf Urine Mucus Occasional H (None) /hpf IgA (60.0-350.0) mg/dL Diabetes panel 01/28/23 01/28/23 Range/Units 09:28 13:25 Sodium 137 (137-145) mmol/L Potassium 6.6 H* 5.4 H (3.5-5.1) mmol/L Chloride 97 L (98-107) mmol/L Carbon Dioxide 9 L* (22-30) mmol/L BUN 103 H* (7-17) mg/dL Creatinine 9.73 H* (0.52-1.04) mg/dL Glucose 113 H (74-99) mg/dL Calcium 9.6 (8.4-10.2) mg/dL AST 32 (14-36) U/L ALT 57 H (4-34) U/L Alkaline Phosphatase 60 (38-126) U/L Total Protein 7.8 (6.3-8.2) g/dL Albumin 4.3 (3.5-5.0) g/dL Calcium panel 01/28/23 01/28/23 Range/Units 09:28 09:28 Calcium 9.6 (8.4-10.2) mg/dL Phosphorus 13.7 H* (2.5-4.5) mg/dL Albumin 4.3 (3.5-5.0) g/dL Pituitary panel 01/28/23 01/28/23 Range/Units 09:28 13:25 Sodium 137 (137-145) mmol/L Potassium 6.6 H* 5.4 H (3.5-5.1) mmol/L Chloride 97 L (98-107) mmol/L Carbon Dioxide 9 L* (22-30) mmol/L BUN 103 H* (7-17) mg/dL Creatinine 9.73 H* (0.52-1.04) mg/dL Glucose 113 H (74-99) mg/dL Calcium 9.6 (8.4-10.2) mg/dL Adrenal panel 01/28/23 01/28/23 Range/Units 09:28 13:25 Sodium 137 (137-145) mmol/L Potassium 6.6 H* 5.4 H (3.5-5.1) mmol/L Chloride 97 L (98-107) mmol/L Carbon Dioxide 9 L* (22-30) mmol/L BUN 103 H* (7-17) mg/dL Creatinine 9.73 H* (0.52-1.04) mg/dL Glucose 113 H (74-99) mg/dL Calcium 9.6 (8.4-10.2) mg/dL Total Bilirubin 0.4 (0.2-1.3) mg/dL AST 32 (14-36) U/L ALT 57 H (4-34) U/L Alkaline Phosphatase 60 (38-126) U/L Total Protein 7.8 (6.3-8.2) g/dL Albumin 4.3 (3.5-5.0) g/dL Assessment and Plan Assessment: Bermudez grade 3 ulcer left foot with possible osteomyelitis Acute kidney failure Plan: Exam. Discussed with patient findings and treatment plan. We'll continue local wound care at this time and continue to monitor the osseous tissue for any progression of osteomyelitis. Patient is aware further amputation may be required. However at this point she needs to be systemically stable before proceeding with any intervention if needed thank you for this consultation
[2023-01-28 19:49] LABS: African American GFR (CKD) 7 (>60 ml/min/1.73 sqM); Anion Gap 22 mmol/L; Blood Urea Nitrogen 64 mg/dL (7-17); Carbon Dioxide 17 mmol/L (22-30); Chloride 98 mmol/L (98-107); Glucose 119 mg/dL (74-99); Non-African American GFR(CKD) 6 (>60 ml/min/1.73 sqM); Potassium 4.7 mmol/L (3.5-5.1); Sodium 137 mmol/L (137-145)
[2023-01-28 20:33] LABS: Glucose,Whole Blood 188 mg/dL (70-110)
--- NOTE | 2023-01-28 21:32 | P.CONS ---
History of Present Illness - Reason for Consult Consult date: 01/28/23 Osteoarthritis left foot Requesting physician: Mel Isaac - Chief Complaint Left foot nonhealing wound x weeks - History of Present Illness Patient 62-year-old medical history significant for diabetes mellitus hypertension heart failure with chronic disease patient did have a history of left fifth toe amputation September 2022 and apparently patient seem to have a problem with a nonhealing wound on the lateral aspect of the left foot for the patient has been following with her precision agriculture specialist every week as well as ID physician at [facility] patient has been on multiple courses of antibiotics recently completed course of oral Cipro and subsequently has been started on Keflex patient has been sent to the ER for nonhealing of the wound and apparently the patient all patient labs shows significant worsening of her kidney function, patient denies having any fever or any chills left foot lateral border area that has been there for couple of weeks to months now patient has some bloodstained drainage denies significant foul-smelling patient denies having any headache or URI symptoms no chest pain shortness of breath or cough no abdominal pain no diarrhea patient on presentation to hospital was afebrile and no fever has been well subsequently patient is tolerating 14.45 elevated sed rate did have elevated BUN and creatinine as well as lactic acid CRP of 5.3 urinalysis mildly positive patient did have x-ray of the foot correlate for ongoing osteomyelitis centered at the MTP joint with progressive osteolysis patient did have 2 sets culture done on 12/31/2022 one of them grew MSSA the wound grew MSSA as well as MRSA and corynebacterium, patient was started on daptomycin infectious disease consulted for further management of an tibiotic therapy patient did have underlying diabetic neuropathy denies significant pain to the left foot lateral border wound area Review of Systems Positive point and negatives has been mentioned in the HPI, complete review of systems was performed and all other systems are negative Past Medical History Past Medical History: Coronary Artery Disease (CAD), Heart Failure, Diabetes Mellitus, Hypertension History of Any Multi-Drug Resistant Organisms: MRSA Year Discovered:: 12/31/22 MDRO Source:: Left Foot Past Surgical History: Joint Replacement, Orthopedic Surgery Past Psychological History: No Psychological Hx Reported Smoking Status: Never smoker Past Alcohol Use History: None Reported Past Drug Use History: None Reported Medications and Allergies Home Medications Medication Instructions Recorded Confirmed Type Aspirin 81 mg PO DAILY 01/28/23 01/28/23 History Atorvastatin Calcium [Lipitor] 40 mg PO HS 01/28/23 01/28/23 History Metoprolol Tartrate [Lopressor] 50 mg PO BID 01/28/23 01/28/23 History Pentoxifylline [TRENtal] 400 mg PO AC-TID 01/28/23 01/28/23 History Vitamin B Complex 1 cap PO DAILY 01/28/23 01/28/23 History amLODIPine [Norvasc] 2.5 mg PO DAILY 01/28/23 01/28/23 History glipiZIDE [Glucotrol] 10 mg PO AC-BID 01/28/23 01/28/23 History Apixaban [Eliquis] 5 mg PO BID #180 tab 02/01/23 Rx Acetaminophen Tab [Tylenol] 650 mg PO Q6HR PRN tab 02/02/23 Rx Empagliflozin [Jardiance] 10 mg PO DAILY #30 tablet 02/02/23 Rx Famotidine [Pepcid] 20 mg PO BID #60 tablet 02/02/23 Rx metroNIDAZOLE [Flagyl] 500 mg PO TID 42 Days #126 tab 02/02/23 Rx Allergies Allergy/AdvReac Type Severity Reaction Status Date / Time adhesive tape AdvReac Rash/Hives Verified 01/28/23 17:39 latex AdvReac Rash/Hives Verified 01/28/23 17:39 Physical Exam Vitals: Vital Signs Temp Pulse Resp BP Pulse Ox 01/28/23 12:06 73 18 101/54 100 01/28/23 11:45 71 18 108/52 100 01/28/23 10:12 97.4 F L 56 L 17 102/81 98 01/28/23 09:08 98.1 F 59 L 20 114/75 99 Intake and Output 01/27/23 01/28/23 01/28/23 22:59 06:59 14:59 Output Total 20 Balance -20 Output: Urine 20 Uretheral (Baez) 20 Other: Weight 79.379 kg GENERAL DESCRIPTION: Middle-aged female lying in bed, no distress. No tachypnea or accessory muscle of respiration use. HEENT: Shows Pallor , no scleral icterus. Oral mucous membrane is dry. No pharyngeal erythema or thrush NECK: Trachea central, no thyromegaly. LUNGS: Unlabored breathing. Clear to auscultation anteriorly. No wheeze or crackle. HEART: S1, S2, regular rate and rhythm. No loud murmur ABDOMEN: Soft, no tenderness , guarding or rigidity, no organomegaly EXTREMITIES: Left fourth and fifth toe amputation site base with a nonhealing wound minimal blood stained drainage SKIN: No rash, no masses palpable. NEUROLOGICAL: The patient is awake, alert, oriented x3, mood and affect normal. Results CBC & Chem 7: 02/01/23 11:34 02/02/23 09:47 Labs: Abnormal Lab Results - Last 24 Hours (Table) 01/28/23 01/28/23 01/28/23 Range/Units 09:28 09:28 09:28 WBC 14.4 H (3.8-10.6) k/uL Plt Count 483 H (150-450) k/uL Neutrophils # 12.1 H (1.3-7.7) k/uL Potassium 6.6 H* (3.5-5.1) mmol/L Chloride 97 L (98-107) mmol/L Carbon Dioxide 9 L* (22-30) mmol/L BUN 103 H* (7-17) mg/dL Creatinine 9.73 H* (0.52-1.04) mg/dL Glucose 113 H (74-99) mg/dL Plasma Lactic Acid Lobito 6.3 H* (0.7-2.0) mmol/L ALT 57 H (4-34) U/L C-Reactive Protein 5.3 H (<1.0) mg/dL Assessment and Plan (1) Osteomyelitis of left foot Status: Acute Code(s): M86.9 - OSTEOMYELITIS, UNSPECIFIED SNOMED Code(s): 9697026427571722 Plan: 1patient with a chronic nonhealing wound to the left foot lateral border of the amputation of her left. Now with evidence of worsening osteolysis however recent x-ray last culture done on 12/31/2022 did grew MSSA as well as MRSA pending outpatient oral Cipro and Keflex therapy as the patient has worsening of her wound and bone destruction concerning for worsening osteomyelitis 2-patient with renal insufficiency high risk of nephrotoxicity 3-wound culture has been repeated guide further antibiotic therapy 4-continue with the daptomycin this milligrams per KG for 48 hours We will follow on clinical condition and cultures to further adjust medication if needed Thank you for this consultation we will follow the patient along with you Dictation was produced using [employer] dictation software. please excuse any grammatical, word or spelling errors. Time with Patient: Greater than 30
[2023-01-29 00:51] LABS: DNA Double-Stranded Negative (Negative)
[2023-01-29 02:41] LABS: Hepatitis B Surface AB- Quant 16.8 mIU/mL
[2023-01-29 03:29] LABS: Hepatitis B Surface Antigen Nonreactive
[2023-01-29] MEDS: HYDROcodone/APAP 5-325MG 1 EACH TAB PO PRN ×2 (03:55→20:35)
[2023-01-29 05:29] LABS: African American GFR (CKD) 7 (>60 ml/min/1.73 sqM); Anion Gap 15 mmol/L; Blood Urea Nitrogen 71 mg/dL (7-17); Calcium 7.8 mg/dL (8.4-10.2); Carbon Dioxide 22 mmol/L (22-30); Chloride 97 mmol/L (98-107); Glucose 181 mg/dL (74-99); Magnesium 1.7 mg/dL (1.6-2.3); Non-African American GFR(CKD) 6 (>60 ml/min/1.73 sqM); Phosphorus 6.7 mg/dL (2.5-4.5); Potassium 4.1 mmol/L (3.5-5.1); Sodium 134 mmol/L (137-145)
[2023-01-29 05:59] LABS: Glucose,Whole Blood 215 mg/dL (70-110)
[2023-01-29] MEDS: INSULIN ASPART (NovoLOG) 100 UNIT/ML VIAL SQ SCH ×4 (06:17→20:33)
[2023-01-29] MEDS: ASPIRIN 81 MG PO SCH (09:32)
--- NOTE | 2023-01-29 11:17 | P.PN ---
Subjective Patient is seen in follow-up for acute kidney injury. Started on hemodialysis 01/28/2023. Currently on bicarb drip. Nonoliguric. Potassium level 4.1 today. Acidosis improved. Overall feels better today. Vital signs are stable. General: No acute distress. HEENT: Head exam is unremarkable. LUNGS: No audible rhonchi or wheezes. HEART: Rate and Rhythm are regular. ABDOMEN: Nontender. EXTREMITITES: No edema. Objective - Vital Signs Vital signs: Vital Signs Temp 98.1 F 01/29/23 08:00 Pulse 71 01/29/23 08:00 Resp 16 01/29/23 08:00 BP 92/57 01/29/23 08:00 Pulse Ox 94 L 01/29/23 08:00 FiO2 Intake & Output 01/28/23 01/29/23 01/29/23 18:59 06:59 18:59 Intake Total 510 120 Output Total 540 600 450 Balance -30 -600 -330 Weight 79.379 kg Intake: IV 10 Oral 120 Hemodialysis 500 Output: Urine 40 600 450 Uretheral (Baez) 40 450 Hemodialysis 500 Other: Voiding Method Indwelling Catheter Indwelling Catheter - Labs CBC & Chem 7: 01/28/23 09:28 01/29/23 04:02 Labs: Abnormal Lab Results - Last 24 Hours (Table) 01/28/23 01/28/23 01/28/23 Range/Units 09:28 09:28 09:28 ESR 117 H (0-30) mm/Hr Sodium (137-145) mmol/L Potassium (3.5-5.1) mmol/L Chloride (98-107) mmol/L Carbon Dioxide (22-30) mmol/L BUN (7-17) mg/dL Creatinine (0.52-1.04) mg/dL Glucose (74-99) mg/dL POC Glucose (mg/dL) (70-110) mg/dL Hemoglobin A1c (<=6.0) % Plasma Lactic Acid Lobito (0.7-2.0) mmol/L Calcium (8.4-10.2) mg/dL Phosphorus 13.7 H* (2.5-4.5) mg/dL Albumin (PEP) (3.8-4.9) d/dL Urine Appearance (Clear) Urine Protein (Negative) Urine Glucose (UA) (Negative) Urine Ketones (Negative) Urine Blood (Negative) Ur Leukocyte Esterase (Negative) Urine RBC (0-5) /hpf Urine WBC (0-5) /hpf Ur Squamous Epith Cells (0-4) /hpf Amorphous Sediment (None) /hpf Urine Bacteria (None) /hpf Urine Mucus (None) /hpf IgA (60.0-350.0) mg/dL Hep Bs Antibody A (Negative) 01/28/23 01/28/23 01/28/23 Range/Units 12:14 12:14 12:20 ESR (0-30) mm/Hr Sodium (137-145) mmol/L Potassium (3.5-5.1) mmol/L Chloride (98-107) mmol/L Carbon Dioxide (22-30) mmol/L BUN (7-17) mg/dL Creatinine (0.52-1.04) mg/dL Glucose (74-99) mg/dL POC Glucose (mg/dL) (70-110) mg/dL Hemoglobin A1c (<=6.0) % Plasma Lactic Acid Lobiot 9.5 H* (0.7-2.0) mmol/L Calcium (8.4-10.2) mg/dL Phosphorus (2.5-4.5) mg/dL Albumin (PEP) 3.4 L (3.8-4.9) d/dL Urine Appearance Turbid H (Clear) Urine Protein 2+ H (Negative) Urine Glucose (UA) Trace H (Negative) Urine Ketones Trace H (Negative) Urine Blood Small H (Negative) Ur Leukocyte Esterase Trace H (Negative) Urine RBC 6 H (0-5) /hpf Urine WBC 19 H (0-5) /hpf Ur Squamous Epith Cells 7 H (0-4) /hpf Amorphous Sediment Occasional H (None) /hpf Urine Bacteria Rare H (None) /hpf Urine Mucus Occasional H (None) /hpf IgA 357.0 H (60.0-350.0) mg/dL Hep Bs Antibody (Negative) 01/28/23 01/28/23 01/28/23 Range/Units 13:25 15:05 18:41 ESR (0-30) mm/Hr Sodium (137-145) mmol/L Potassium 5.4 H (3.5-5.1) mmol/L Chloride (98-107) mmol/L Carbon Dioxide (22-30) mmol/L BUN (7-17) mg/dL Creatinine (0.52-1.04) mg/dL Glucose (74-99) mg/dL POC Glucose (mg/dL) (70-110) mg/dL Hemoglobin A1c (<=6.0) % Plasma Lactic Acid Lobito 6.5 H* 4.3 H* (0.7-2.0) mmol/L Calcium (8.4-10.2) mg/dL Phosphorus (2.5-4.5) mg/dL Albumin (PEP) (3.8-4.9) d/dL Urine Appearance (Clear) Urine Protein (Negative) Urine Glucose (UA) (Negative) Urine Ketones (Negative) Urine Blood (Negative) Ur Leukocyte Esterase (Negative) Urine RBC (0-5) /hpf Urine WBC (0-5) /hpf Ur Squamous Epith Cells (0-4) /hpf Amorphous Sediment (None) /hpf Urine Bacteria (None) /hpf Urine Mucus (None) /hpf IgA (60.0-350.0) mg/dL Hep Bs Antibody (Negative) 01/28/23 01/28/23 01/28/23 Range/Units 18:41 20:32 22:14 ESR (0-30) mm/Hr Sodium (137-145) mmol/L Potassium (3.5-5.1) mmol/L Chloride (98-107) mmol/L Carbon Dioxide 17 L (22-30) mmol/L BUN 64 H (7-17) mg/dL Creatinine 6.51 H (0.52-1.04) mg/dL Glucose 119 H (74-99) mg/dL POC Glucose (mg/dL) 188 H (70-110) mg/dL Hemoglobin A1c (<=6.0) % Plasma Lactic Acid Lobito 2.5 H* (0.7-2.0) mmol/L Calcium (8.4-10.2) mg/dL Phosphorus (2.5-4.5) mg/dL Albumin (PEP) (3.8-4.9) d/dL Urine Appearance (Clear) Urine Protein (Negative) Urine Glucose (UA) (Negative) Urine Ketones (Negative) Urine Blood (Negative) Ur Leukocyte Esterase (Negative) Urine RBC (0-5) /hpf Urine WBC (0-5) /hpf Ur Squamous Epith Cells (0-4) /hpf Amorphous Sediment (None) /hpf Urine Bacteria (None) /hpf Urine Mucus (None) /hpf IgA (60.0-350.0) mg/dL Hep Bs Antibody (Negative) 01/29/23 01/29/23 01/29/23 Range/Units 04:02 04:02 04:02 ESR (0-30) mm/Hr Sodium 134 L (137-145) mmol/L Potassium (3.5-5.1) mmol/L Chloride 97 L (98-107) mmol/L Carbon Dioxide (22-30) mmol/L BUN 71 H (7-17) mg/dL Creatinine 6.44 H (0.52-1.04) mg/dL Glucose 181 H (74-99) mg/dL POC Glucose (mg/dL) (70-110) mg/dL Hemoglobin A1c 7.4 H (<=6.0) % Plasma Lactic Acid Lobito 2.2 H* (0.7-2.0) mmol/L Calcium 7.8 L (8.4-10.2) mg/dL Phosphorus 6.7 H (2.5-4.5) mg/dL Albumin (PEP) (3.8-4.9) d/dL Urine Appearance (Clear) Urine Protein (Negative) Urine Glucose (UA) (Negative) Urine Ketones (Negative) Urine Blood (Negative) Ur Leukocyte Esterase (Negative) Urine RBC (0-5) /hpf Urine WBC (0-5) /hpf Ur Squamous Epith Cells (0-4) /hpf Amorphous Sediment (None) /hpf Urine Bacteria (None) /hpf Urine Mucus (None) /hpf IgA (60.0-350.0) mg/dL Hep Bs Antibody (Negative) 01/29/23 01/29/23 Range/Units 05:57 08:41 ESR (0-30) mm/Hr Sodium (137-145) mmol/L Potassium (3.5-5.1) mmol/L Chloride (98-107) mmol/L Carbon Dioxide (22-30) mmol/L BUN (7-17) mg/dL Creatinine (0.52-1.04) mg/dL Glucose (74-99) mg/dL POC Glucose (mg/dL) 215 H (70-110) mg/dL Hemoglobin A1c (<=6.0) % Plasma Lactic Acid Lobito 2.4 H* (0.7-2.0) mmol/L Calcium (8.4-10.2) mg/dL Phosphorus (2.5-4.5) mg/dL Albumin (PEP) (3.8-4.9) d/dL Urine Appearance (Clear) Urine Protein (Negative) Urine Glucose (UA) (Negative) Urine Ketones (Negative) Urine Blood (Negative) Ur Leukocyte Esterase (Negative) Urine RBC (0-5) /hpf Urine WBC (0-5) /hpf Ur Squamous Epith Cells (0-4) /hpf Amorphous Sediment (None) /hpf Urine Bacteria (None) /hpf Urine Mucus (None) /hpf IgA (60.0-350.0) mg/dL Hep Bs Antibody (Negative) Microbiology - Last 24 Hours (Table) 01/28/23 14:30 Gram Stain - Preliminary Toe - Left Second Assessment and Plan Plan: Assessment: 1. Acute kidney injury secondary to ATN. Worsened with the use of diuretic, HUMA inhibitor. Baseline creatinine near 0.87 from October 2022 and elevated at 9.73 this admission - started on hemodialysis 01/28/2023. Nonoliguric. No hydronephrosis noted on kidney ultrasound. Urine eosinophils negative. 2. Hyperkalemia secondary to acute kidney injury, metabolic acidosis and lisinopril. Improved postdialysis. 3. Metabolic acidosis secondary to acute kidney injury, lactic acidosis, metfo rmin. Improved with bicarbonate drip and dialysis. 4. Benign hypertension. Blood pressure on the lower side. 5. Left foot osteomyelitis. On IV antibiotics. 6. Hyperphosphatemia secondary to acute kidney injury. Plan: Stop bicarb drip. Start normal saline at 75 mL an hour. Follow-up serologies. Add PhosLo with meals. Second treatment of hemodialysis today. Plan hold dialysis tomorrow and monitor for renal recovery.
[2023-01-29 11:43] LABS: Glucose,Whole Blood 297 mg/dL (70-110)
[2023-01-29] MEDS: CALCIUM ACETATE 667 MG TAB PO SCH ×2 (12:12→16:54)
[2023-01-29] MEDS: DEXTROSE 5% IN WATER 1,000 ML with SODIUM BICARB (1 MEQ/ML) 150 ML IV SCH (12:13)
[2023-01-29] MEDS: SODIUM CHLORIDE 0.9% 1,000 ML IV SCH (12:13)
--- NOTE | 2023-01-29 13:34 | P.PN ---
Subjective Progress Note Date: 01/29/23 patient is 62-year-old lady with past medical history significant for hyperlipidemia, hypertension, diabetes mellitus presented to the ER for abnormal labs. Patient stated that she was all right 2 days back he started feeling sick. Patient was feeling lethargic and tired. Patient also having nausea and vomiting afterwards. Patient recently had a left toe amputated in September and was on antibiotics for osteomyelitis. Patient went to see her ID doctor yesterday and they ordered blood work. Her blood work came back showing worsening renal functions for which her ID doctor told her to come to the ER. Initial lab work done in the ER showed WBC 14.4, hemoglobin 11.8, platelet count 43, sodium 137, potassium 6.6, BUN 103, creatinine 19.73, lactate 6.3 phosphorous 13.7 X-ray of the foot done showed osteomyelitis Centered at the fourth MTP joint EKG done in the ER Patient was admitted to medicine service 01/29. Patient seen and examined. States that she is making urine now. States she feels much better compared to yesterday. Denies any lightheadedness or dizziness. Vital signs stable REVIEW OF SYSTEMS: CONSTITUTIONAL: No fever, no malaise,. CARDIOVASCULAR: No chest pain, no palpitations, no syncope. PULMONARY: No shortness of breath, no cough, GASTROINTESTINAL: No diarrhea, no nausea, no vomiting, no abdominal pain. NEUROLOGICAL: No headaches, no weakness, PHYSICAL EXAMINATION: GENERAL: The patient is alert and oriented x3, not in any acute distress. Well developed, well nourished. HEENT: Pupils are round and equally reacting to light. EOMI. No scleral icterus. No conjunctival pallor. Normocephalic, atraumatic. No pharyngeal erythema. No thyromegaly. CARDIOVASCULAR: S1 and S2 present. No murmurs, rubs, or gallops. PULMONARY: Chest is clear to auscultation, no wheezing or crackles. ABDOMEN: Soft, nontender, nondistended, normoactive bowel sounds. No palpable organomegaly. MUSCULOSKELETAL: No joint swelling or deformity. EXTREMITIES: No cyanosis, clubbing, or pedal edema. NEUROLOGICAL: Gross neurological examination did not reveal any focal deficits. SKIN: No rashes. Assessment and plan Hyperkalemia Acute kidney injury Acute left foot osteomyelitis Lactic acidosis Hyperphosphatemia Hyperlipidemia [id number] diabetes mellitus Hypertension Monitor vital signs Monitor CBC Monitor CMP Continue telemetry monitoring Encourage use of incentive spirometer Strict I's and O's, daily weights. Status post dialysis catheter placement on 01/28, underwent first cycle of dialysis on 01/28. Continue bicarb drip Nephrology following Continue daptomycin, ID following Orthopedics evaluated the patient for left foot osteomyelitis at this time they want patient to be stabilized before considering any surgical intervention Labs and medication were reviewed.. Continue same treatment. Continue with symptomatic treatment. Resume home medication. Monitor labs and vitals. DVT and GI prophylaxis. Further recommendations as per clinical course of the patient Dictation was produced using [employer] dictation software. please excuse any grammatical, word or spelling errors. Objective - Vital Signs Vital signs: Vital Signs Temp 98.1 F 01/29/23 08:00 Pulse 71 01/29/23 08:00 Resp 16 01/29/23 08:00 BP 92/57 01/29/23 08:00 Pulse Ox 94 L 01/29/23 08:00 FiO2 Intake & Output 01/28/23 01/29/23 01/29/23 18:59 06:59 18:59 Intake Total 510 120 Output Total 540 600 450 Balance -30 -600 -330 Weight 79.379 kg Intake: IV 10 Oral 120 Hemodialysis 500 Output: Urine 40 600 450 Uretheral (Baez) 40 450 Hemodialysis 500 Other: Voiding Method Indwelling Catheter - Labs CBC & Chem 7: 01/28/23 09:28 01/29/23 04:02 Labs: Abnormal Lab Results - Last 24 Hours (Table) 01/28/23 01/28/23 01/28/23 Range/Units 09:28 09:28 09:28 WBC 14.4 H (3.8-10.6) k/uL Plt Count 483 H (150-450) k/uL Neutrophils # 12.1 H (1.3-7.7) k/uL ESR 117 H (0-30) mm/Hr Sodium (137-145) mmol/L Potassium 6.6 H* (3.5-5.1) mmol/L Chloride 97 L (98-107) mmol/L Carbon Dioxide 9 L* (22-30) mmol/L BUN 103 H* (7-17) mg/dL Creatinine 9.73 H* (0.52-1.04) mg/dL Glucose 113 H (74-99) mg/dL POC Glucose (mg/dL) (70-110) mg/dL Hemoglobin A1c (<=6.0) % Plasma Lactic Acid Lobito 6.3 H* (0.7-2.0) mmol/L Calcium (8.4-10.2) mg/dL Phosphorus (2.5-4.5) mg/dL ALT 57 H (4-34) U/L C-Reactive Protein 5.3 H (<1.0) mg/dL Albumin (PEP) (3.8-4.9) d/dL Urine Appearance (Clear) Urine Protein (Negative) Urine Glucose (UA) (Negative) Urine Ketones (Negative) Urine Blood (Negative) Ur Leukocyte Esterase (Negative) Urine RBC (0-5) /hpf Urine WBC (0-5) /hpf Ur Squamous Epith Cells (0-4) /hpf Amorphous Sediment (None) /hpf Urine Bacteria (None) /hpf Urine Mucus (None) /hpf IgA (60.0-350.0) mg/dL Hep Bs Antibody (Negative) 01/28/23 01/28/23 01/28/23 Range/Units 09:28 09:28 12:14 WBC (3.8-10.6) k/uL Plt Count (150-450) k/uL Neutrophils # (1.3-7.7) k/uL ESR (0-30) mm/Hr Sodium (137-145) mmol/L Potassium (3.5-5.1) mmol/L Chloride (98-107) mmol/L Carbon Dioxide (22-30) mmol/L BUN (7-17) mg/dL Creatinine (0.52-1.04) mg/dL Glucose (74-99) mg/dL POC Glucose (mg/dL) (70-110) mg/dL Hemoglobin A1c (<=6.0) % Plasma Lactic Acid Lobito 9.5 H* (0.7-2.0) mmol/L Calcium (8.4-10.2) mg/dL Phosphorus 13.7 H* (2.5-4.5) mg/dL ALT (4-34) U/L C-Reactive Protein (<1.0) mg/dL Albumin (PEP) (3.8-4.9) d/dL Urine Appearance (Clear) Urine Protein (Negative) Urine Glucose (UA) (Negative) Urine Ketones (Negative) Urine Blood (Negative) Ur Leukocyte Esterase (Negative) Urine RBC (0-5) /hpf Urine WBC (0-5) /hpf Ur Squamous Epith Cells (0-4) /hpf Amorphous Sediment (None) /hpf Urine Bacteria (None) /hpf Urine Mucus (None) /hpf IgA (60.0-350.0) mg/dL Hep Bs Antibody A (Negative) 01/28/23 01/28/23 01/28/23 Range/Units 12:14 12:20 13:25 WBC (3.8-10.6) k/uL Plt Count (150-450) k/uL Neutrophils # (1.3-7.7) k/uL ESR (0-30) mm/Hr Sodium (137-145) mmol/L Potassium 5.4 H (3.5-5.1) mmol/L Chloride (98-107) mmol/L Carbon Dioxide (22-30) mmol/L BUN (7-17) mg/dL Creatinine (0.52-1.04) mg/dL Glucose (74-99) mg/dL POC Glucose (mg/dL) (70-110) mg/dL Hemoglobin A1c (<=6.0) % Plasma Lactic Acid [place]ito (0.7-2.0) mmol/L Calcium (8.4-10.2) mg/dL Phosphorus (2.5-4.5) mg/dL ALT (4-34) U/L C-Reactive Protein (<1.0) mg/dL Albumin (PEP) 3.4 L (3.8-4.9) d/dL Urine Appearance Turbid H (Clear) Urine Protein 2+ H (Negative) Urine Glucose (UA) Trace H (Negative) Urine Ketones Trace H (Negative) Urine Blood Small H (Negative) Ur Leukocyte Esterase Trace H (Negative) Urine RBC 6 H (0-5) /hpf Urine WBC 19 H (0-5) /hpf Ur Squamous Epith Cells 7 H (0-4) /hpf Amorphous Sediment Occasional H (None) /hpf Urine Bacteria Rare H (None) /hpf Urine Mucus Occasional H (None) /hpf IgA 357.0 H (60.0-350.0) mg/dL Hep Bs Antibody (Negative) 01/28/23 01/28/2323 Range/Units 15:05 18:41 18:41 WBC (3.8-10.6) k/uL Plt Count (150-450) k/uL Neutrophils # (1.3-7.7) k/uL ESR (0-30) mm/Hr Sodium (137-145) mmol/L Potassium (3.5-5.1) mmol/L Chloride (98-107) mmol/L Carbon Dioxide 17 L (22-30) mmol/L BUN 64 H (7-17) mg/dL Creatinine 6.51 H (0.52-1.04) mg/dL Glucose 119 H (74-99) mg/dL POC Glucose (mg/dL) (70-110) mg/dL Hemoglobin A1c (<=6.0) % Plasma Lactic Acid [place]ito 6.5 H* 4.3 H* (0.7-2.0) mmol/L Calcium (8.4-10.2) mg/dL Phosphorus (2.5-4.5) mg/dL ALT (4-34) U/L C-Reactive Protein (<1.0) mg/dL Albumin (PEP) (3.8-4.9) d/dL Urine Appearance (Clear) Urine Protein (Negative) Urine Glucose (UA) (Negative) Urine Ketones (Negative) Urine Blood (Negative) Ur Leukocyte Esterase (Negative) Urine RBC (0-5) /hpf Urine WBC (0-5) /hpf Ur Squamous Epith Cells (0-4) /hpf Amorphous Sediment (None) /hpf Urine Bacteria (None) /hpf Urine Mucus (None) /hpf IgA (60.0-350.0) mg/dL Hep Bs Antibody (Negative) 01/28/23 01/28/23 01/29/23 Range/Units 20:32 22:14 04:02 WBC (3.8-10.6) k/uL Plt Count (150-450) k/uL Neutrophils # (1.3-7.7) k/uL ESR (0-30) mm/Hr Sodium (137-145) mmol/L Potassium (3.5-5.1) mmol/L Chloride (98-107) mmol/L Carbon Dioxide (22-30) mmol/L BUN (7-17) mg/dL Creatinine (0.52-1.04) mg/dL Glucose (74-99) mg/dL POC Glucose (mg/dL) 188 H (70-110) mg/dL Hemoglobin A1c 7.4 H (<=6.0) % Plasma Lactic Acid [place]ito 2.5 H* (0.7-2.0) mmol/L Calcium (8.4-10.2) mg/dL Phosphorus (2.5-4.5) mg/dL ALT (4-34) U/L C-Reactive Protein (<1.0) mg/dL Albumin (PEP) (3.8-4.9) d/dL Urine Appearance (Clear) Urine Protein (Negative) Urine Glucose (UA) (Negative) Urine Ketones (Negative) Urine Blood (Negative) Ur Leukocyte Esterase (Negative) Urine RBC (0-5) /hpf Urine WBC (0-5) /hpf Ur Squamous Epith Cells (0-4) /hpf Amorphous Sediment (None) /hpf Urine Bacteria (None) /hpf Urine Mucus (None) /hpf IgA (60.0-350.0) mg/dL Hep Bs Antibody (Negative) 01/29/23 01/29/23 01/29/23 Range/Units 04:02 04:02 05:57 WBC (3.8-10.6) k/uL Plt Count (150-450) k/uL Neutrophils # (1.3-7.7) k/uL ESR (0-30) mm/Hr Sodium 134 L (137-145) mmol/L Potassium (3.5-5.1) mmol/L Chloride 97 L (98-107) mmol/L Carbon Dioxide (22-30) mmol/L BUN 71 H (7-17) mg/dL Creatinine 6.44 H (0.52-1.04) mg/dL Glucose 181 H (74-99) mg/dL POC Glucose (mg/dL) 215 H (70-110) mg/dL Hemoglobin A1c (<=6.0) % Plasma Lactic Acid Lobito 2.2 H* (0.7-2.0) mmol/L Calcium 7.8 L (8.4-10.2) mg/dL Phosphorus 6.7 H (2.5-4.5) mg/dL ALT (4-34) U/L C-Reactive Protein (<1.0) mg/dL Albumin (PEP) (3.8-4.9) d/dL Urine Appearance (Clear) Urine Protein (Negative) Urine Glucose (UA) (Negative) Urine Ketones (Negative) Urine Blood (Negative) Ur Leukocyte Esterase (Negative) Urine RBC (0-5) /hpf Urine WBC (0-5) /hpf Ur Squamous Epith Cells (0-4) /hpf Amorphous Sediment (None) /hpf Urine Bacteria (None) /hpf Urine Mucus (None) /hpf IgA (60.0-350.0) mg/dL Hep Bs Antibody (Negative) Microbiology - Last 24 Hours (Table) 01/28/23 14:30 Gram Stain - Preliminary Toe - Left Second
[2023-01-29 16:36] LABS: Glucose,Whole Blood 125 mg/dL (70-110)
[2023-01-29 20:19] LABS: Glucose,Whole Blood 194 mg/dL (70-110)
[2023-01-30] MEDS: SODIUM CHLORIDE 0.9% 1,000 ML IV SCH ×2 (00:45→12:31)
[2023-01-30 06:11] LABS: Glucose,Whole Blood 172 mg/dL (70-110)
[2023-01-30] MEDS: INSULIN ASPART (NovoLOG) 100 UNIT/ML VIAL SQ SCH ×4 (06:31→20:43)
[2023-01-30] MEDS: CALCIUM ACETATE 667 MG TAB PO SCH ×3 (06:32→16:47)
--- NOTE | 2023-01-30 09:02 | P.PN ---
Subjective Progress Note Date: 01/29/23 Principal diagnosis: L foot wound and osteomyelitis Patient 62-year-old medical history significant for diabetes mellitus hypertension heart failure with chronic disease patient did have a history of left fifth toe amputation September 2022 and apparently patient seem to have a proble m with a nonhealing wound on the lateral aspect of the left foot, patient also noticed to have worsening of her kidney function on outpatient labs advised to come to the hospital. On today's evaluation that is 01/29/2023, the patient denies having any fever or any chills, the patient is breathing comfortably on room air no chest pain shortness of breath or cough no nausea vomiting abdominal pain or pain to the left foot lateral border wound area. Patient did have white count 14.4 as of yesterday creatinine is 6.44 local cultures currently pending Objective - Vital Signs Vital signs: Vital Signs Temp 98.1 F 01/29/23 08:00 Pulse 71 01/29/23 08:00 Resp 16 01/29/23 08:00 BP 92/57 01/29/23 08:00 Pulse Ox 94 L 01/29/23 08:00 FiO2 Intake & Output 01/28/23 01/29/23 01/29/23 18:59 06:59 18:59 Intake Total 510 120 Output Total 540 600 450 Balance -30 -600 -330 Weight 79.379 kg Intake: IV 10 Oral 120 Hemodialysis 500 Output: Urine 40 600 450 Uretheral (Baez) 40 450 Hemodialysis 500 Other: Voiding Method Indwelling Catheter - Exam GENERAL DESCRIPTION: Middle age female lying in bed in no distress RESPIRATORY SYSTEM: Unlabored breathing , decreased breath sounds at bases HEART: S1 S2 regular rate and rhythm ABDOMEN: Soft , no tenderness EXTREMITIES: Left foot lateral border wound is currently dressed no drainage on the dressing - Labs CBC & Chem 7: 01/28/23 09:28 01/29/23 04:02 Labs: Abnormal Lab Results - Last 24 Hours (Table) 01/28/23 01/28/23 01/28/23 Range/Units 09:28 09:28 09:28 ESR 117 H (0-30) mm/Hr Sodium (137-145) mmol/L Potassium 6.6 H* (3.5-5.1) mmol/L Chloride 97 L (98-107) mmol/L Carbon Dioxide 9 L* (22-30) mmol/L BUN 103 H* (7-17) mg/dL Creatinine 9.73 H* (0.52-1.04) mg/dL Glucose 113 H (74-99) mg/dL POC Glucose (mg/dL) (70-110) mg/dL Hemoglobin A1c (<=6.0) % Plasma Lactic Acid Lobito (0.7-2.0) mmol/L Calcium (8.4-10.2) mg/dL Phosphorus 13.7 H* (2.5-4.5) mg/dL ALT 57 H (4-34) U/L C-Reactive Protein 5.3 H (<1.0) mg/dL Albumin (PEP) (3.8-4.9) d/dL Urine Appearance (Clear) Urine Protein (Negative) Urine Glucose (UA) (Negative) Urine Ketones (Negative) Urine Blood (Negative) Ur Leukocyte Esterase (Negative) Urine RBC (0-5) /hpf Urine WBC (0-5) /hpf Ur Squamous Epith Cells (0-4) /hpf Amorphous Sediment (None) /hpf Urine Bacteria (None) /hpf Urine Mucus (None) /hpf IgA (60.0-350.0) mg/dL Hep Bs Antibody (Negative) 01/28/23 01/28/23 01/28/23 Range/Units 09:28 12:14 12:14 ESR (0-30) mm/Hr Sodium (137-145) mmol/L Potassium (3.5-5.1) mmol/L Chloride (98-107) mmol/L Carbon Dioxide (22-30) mmol/L BUN (7-17) mg/dL Creatinine (0.52-1.04) mg/dL Glucose (74-99) mg/dL POC Glucose (mg/dL) (70-110) mg/dL Hemoglobin A1c (<=6.0) % Plasma Lactic Acid Lobito 9.5 H* (0.7-2.0) mmol/L Calcium (8.4-10.2) mg/dL Phosphorus (2.5-4.5) mg/dL ALT (4-34) U/L C-Reactive Protein (<1.0) mg/dL Albumin (PEP) 3.4 L (3.8-4.9) d/dL Urine Appearance (Clear) Urine Protein (Negative) Urine Glucose (UA) (Negative) Urine Ketones (Negative) Urine Blood (Negative) Ur Leukocyte Esterase (Negative) Urine RBC (0-5) /hpf Urine WBC (0-5) /hpf Ur Squamous Epith Cells (0-4) /hpf Amorphous Sediment (None) /hpf Urine Bacteria (None) /hpf Urine Mucus (None) /hpf IgA 357.0 H (60.0-350.0) mg/dL Hep Bs Antibody A (Negative) 01/28/23 01/28/23 01/28/23 Range/Units 12:20 13:25 15:05 ESR (0-30) mm/Hr Sodium (137-145) mmol/L Potassium 5.4 H (3.5-5.1) mmol/L Chloride (98-107) mmol/L Carbon Dioxide (22-30) mmol/L BUN (7-17) mg/dL Creatinine (0.52-1.04) mg/dL Glucose (74-99) mg/dL POC Glucose (mg/dL) (70-110) mg/dL Hemoglobin A1c (<=6.0) % Plasma Lactic Acid Lobito 6.5 H* (0.7-2.0) mmol/L Calcium (8.4-10.2) mg/dL Phosphorus (2.5-4.5) mg/dL ALT (4-34) U/L C-Reactive Protein (<1.0) mg/dL Albumin (PEP) (3.8-4.9) d/dL Urine Appearance Turbid H (Clear) Urine Protein 2+ H (Negative) Urine Glucose (UA) Trace H (Negative) Urine Ketones Trace H (Negative) Urine Blood Small H (Negative) Ur Leukocyte Esterase Trace H (Negative) Urine RBC 6 H (0-5) /hpf Urine WBC 19 H (0-5) /hpf Ur Squamous Epith Cells 7 H (0-4) /hpf Amorphous Sediment Occasional H (None) /hpf Urine Bacteria Rare H (None) /hpf Urine Mucus Occasional H (None) /hpf IgA (60.0-350.0) mg/dL Hep Bs Antibody (Negative) 01/28/23 01/28/23 01/28/23 Range/Units 18:41 18:41 20:32 ESR (0-30) mm/Hr Sodium (137-145) mmol/L Potassium (3.5-5.1) mmol/L Chloride (98-107) mmol/L Carbon Dioxide 17 L (22-30) mmol/L BUN 64 H (7-17) mg/dL Creatinine 6.51 H (0.52-1.04) mg/dL Glucose 119 H (74-99) mg/dL POC Glucose (mg/dL) 188 H (70-110) mg/dL Hemoglobin A1c (<=6.0) % Plasma Lactic Acid Lobito 4.3 H* (0.7-2.0) mmol/L Calcium (8.4-10.2) mg/dL Phosphorus (2.5-4.5) mg/dL ALT (4-34) U/L C-Reactive Protein (<1.0) mg/dL Albumin (PEP) (3.8-4.9) d/dL Urine Appearance (Clear) Urine Protein (Negative) Urine Glucose (UA) (Negative) Urine Ketones (Negative) Urine Blood (Negative) Ur Leukocyte Esterase (Negative) Urine RBC (0-5) /hpf Urine WBC (0-5) /hpf Ur Squamous Epith Cells (0-4) /hpf Amorphous Sediment (None) /hpf Urine Bacteria (None) /hpf Urine Mucus (None) /hpf IgA (60.0-350.0) mg/dL Hep Bs Antibody (Negative) 01/28/23 01/29/23 01/29/23 Range/Units 22:14 04:02 04:02 ESR (0-30) mm/Hr Sodium 134 L (137-145) mmol/L Potassium (3.5-5.1) mmol/L Chloride 97 L (98-107) mmol/L Carbon Dioxide (22-30) mmol/L BUN 71 H (7-17) mg/dL Creatinine 6.44 H (0.52-1.04) mg/dL Glucose 181 H (74-99) mg/dL POC Glucose (mg/dL) (70-110) mg/dL Hemoglobin A1c 7.4 H (<=6.0) % Plasma Lactic Acid Lobito 2.5 H* (0.7-2.0) mmol/L Calcium 7.8 L (8.4-10.2) mg/dL Phosphorus 6.7 H (2.5-4.5) mg/dL ALT (4-34) U/L C-Reactive Protein (<1.0) mg/dL Albumin (PEP) (3.8-4.9) d/dL Urine Appearance (Clear) Urine Protein (Negative) Urine Glucose (UA) (Negative) Urine Ketones (Negative) Urine Blood (Negative) Ur Leukocyte Esterase (Negative) Urine RBC (0-5) /hpf Urine WBC (0-5) /hpf Ur Squamous Epith Cells (0-4) /hpf Amorphous Sediment (None) /hpf Urine Bacteria (None) /hpf Urine Mucus (None) /hpf IgA (60.0-350.0) mg/dL Hep Bs Antibody (Negative) 01/29/23 01/29/23 Range/Units 04:02 05:57 ESR (0-30) mm/Hr Sodium (137-145) mmol/L Potassium (3.5-5.1) mmol/L Chloride (98-107) mmol/L Carbon Dioxide (22-30) mmol/L BUN (7-17) mg/dL Creatinine (0.52-1.04) mg/dL Glucose (74-99) mg/dL POC Glucose (mg/dL) 215 H (70-110) mg/dL Hemoglobin A1c (<=6.0) % Plasma Lactic Acid Lobito 2.2 H* (0.7-2.0) mmol/L Calcium (8.4-10.2) mg/dL Phosphorus (2.5-4.5) mg/dL ALT (4-34) U/L C-Reactive Protein (<1.0) mg/dL Albumin (PEP) (3.8-4.9) d/dL Urine Appearance (Clear) Urine Protein (Negative) Urine Glucose (UA) (Negative) Urine Ketones (Negative) Urine Blood (Negative) Ur Leukocyte Esterase (Negative) Urine RBC (0-5) /hpf Urine WBC (0-5) /hpf Ur Squamous Epith Cells (0-4) /hpf Amorphous Sediment (None) /hpf Urine Bacteria (None) /hpf Urine Mucus (None) /hpf IgA (60.0-350.0) mg/dL Hep Bs Antibody (Negative) Microbiology - Last 24 Hours (Table) 01/28/23 14:30 Gram Stain - Preliminary Toe - Left Second Assessment and Plan (1) Osteomyelitis of left foot Current Visit: Yes Status: Acute Code(s): M86.9 - OSTEOMYELITIS, UNSPECIFIED SNOMED Code(s): 6113374888379899 Plan: 1patient with a chronic nonhealing wound to the left foot lateral border of the amputation of her left. Now with evidence of worsening osteolysis however recent x-ray last culture done on 12/31/2022 did grew MSSA as well as MRSA pending outpatient oral Cipro and Keflex therapy as the patient has worsening of her wound and bone destruction concerning for worsening osteomyelitis 2-patient with renal insufficiency high risk of nephrotoxicity 3blood and local culture has been obtained which are currently pending and results will be followed. 4we will keep the patient on daptomycin while waiting for the culture to finalize and monitor clinical course closely Dictation was produced using [employer] dictation software. please excuse any grammatical, word or spelling errors.
[2023-01-30] MEDS: ASPIRIN 81 MG PO SCH (09:07)
[2023-01-30 09:09] LABS: HCT 28.4 % (34.0-46.0); MCH 31.1 pg (25.0-35.0); MCHC 33.9 g/dL (31.0-37.0); MCV 91.8 fL (80.0-100.0); Mean Platelet Volume 7.7; Platelet Count 264 k/uL (150-450); RBC 3.09 m/uL (3.80-5.40); RDW 15.2 % (11.5-15.5); WBC 8.2 k/uL (3.8-10.6)
[2023-01-30 09:24] LABS: HGB 9.6 gm/dL (11.4-16.0)
[2023-01-30 09:54] LABS: ALT 20 U/L (4-34); AST 30 U/L (14-36); African American GFR (CKD) 10 (>60 ml/min/1.73 sqM); Albumin 3.2 g/dL (3.5-5.0); Alkaline Phosphatase 59 U/L (38-126); Anion Gap 10 mmol/L; Blood Urea Nitrogen 45 mg/dL (7-17); Calcium 7.8 mg/dL (8.4-10.2); Carbon Dioxide 27 mmol/L (22-30); Chloride 100 mmol/L (98-107); Glucose 197 mg/dL (74-99); Magnesium 1.6 mg/dL (1.6-2.3); Non-African American GFR(CKD) 9 (>60 ml/min/1.73 sqM); Potassium 3.8 mmol/L (3.5-5.1); Sodium 137 mmol/L (137-145); Total Bilirubin 0.4 mg/dL (0.2-1.3); Total Protein 6.1 g/dL (6.3-8.2)
--- NOTE | 2023-01-30 11:24 | P.PN ---
Subjective Patient is seen in follow-up for acute kidney injury. Started on hemodialysis 01/28/2023. Receiving IV fluids. Nonoliguric. Underwent dialysis yesterday but the catheter wasn't functioning well. Vital signs are stable. General: No acute distress. HEENT: Head exam is unremarkable. LUNGS: No audible rhonchi or wheezes. HEART: Rate and Rhythm are regular. ABDOMEN: Nontender. EXTREMITITES: No edema. Objective - Vital Signs Vital signs: Vital Signs Temp 98.1 F 01/30/23 09:03 Pulse 81 01/30/23 09:03 Resp 18 01/30/23 09:03 BP 115/57 01/30/23 09:03 Pulse Ox 96 01/30/23 09:03 FiO2 Intake & Output 01/29/23 01/30/23 01/30/23 19:59 06:59 18:59 Intake Total 118 Output Total 450 Balance -332 Weight Intake: IV Invasive Line 2 Oral 118 Hemodialysis Output: Urine 450 Uretheral (Baez) 450 Hemodialysis Other: Voiding Method Indwelling Catheter - Labs CBC & Chem 7: 01/30/23 08:13 01/30/23 08:13 Labs: Abnormal Lab Results - Last 24 Hours (Table) 01/29/23 01/29/23 01/29/23 Range/Units 12:51 16:35 19:12 RBC (3.80-5.40) m/uL Hgb (11.4-16.0) gm/dL Hct (34.0-46.0) % BUN (7-17) mg/dL Creatinine (0.52-1.04) mg/dL Glucose (74-99) mg/dL POC Glucose (mg/dL) 125 H (70-110) mg/dL Plasma Lactic Acid Lobito 4.0 H* 2.2 H* (0.7-2.0) mmol/L Calcium (8.4-10.2) mg/dL Total Protein (6.3-8.2) g/dL Albumin (3.5-5.0) g/dL 01/29/23 01/30/23 01/30/23 Range/Units 20:17 06:10 08:13 RBC (3.80-5.40) m/uL Hgb (11.4-16.0) gm/dL Hct (34.0-46.0) % BUN 45 H (7-17) mg/dL Creatinine 4.83 H (0.52-1.04) mg/dL Glucose 197 H (74-99) mg/dL POC Glucose (mg/dL) 194 H 172 H (70-110) mg/dL Plasma Lactic Acid Lobito (0.7-2.0) mmol/L Calcium 7.8 L (8.4-10.2) mg/dL Total Protein 6.1 L (6.3-8.2) g/dL Albumin 3.2 L (3.5-5.0) g/dL 01/30/23 Range/Units 08:13 RBC 3.09 L (3.80-5.40) m/uL Hgb 9.6 L D (11.4-16.0) gm/dL Hct 28.4 L (34.0-46.0) % BUN (7-17) mg/dL Creatinine (0.52-1.04) mg/dL Glucose (74-99) mg/dL POC Glucose (mg/dL) (70-110) mg/dL Plasma Lactic Acid Lobito (0.7-2.0) mmol/L Calcium (8.4-10.2) mg/dL Total Protein (6.3-8.2) g/dL Albumin (3.5-5.0) g/dL Microbiology - Last 24 Hours (Table) 01/28/23 14:30 Gram Stain - Preliminary Toe - Left Second Wound Culture - Preliminary Presumptive MRSA 01/28/23 10:00 Blood Culture Gram Stain - Preliminary Blood 01/28/23 09:45 Blood Culture - Preliminary Blood Assessment and Plan Plan: Assessment: 1. Acute kidney injury secondary to septic ATN. Worsened with the use of diuretic, HUMA inhibitor. Baseline creatinine near 0.87 from October 2022 and elevated at 9.73 this admission - started on hemodialysis 01/28/2023. Nonoliguric. No hydronephrosis noted on kidney ultrasound. Urine eosinophils negative. 2. Hyperkalemia secondary to acute kidney injury, metabolic acidosis and lisinopril. Improved postdialysis. 3. Metabolic acidosis secondary to acute kidney injury, lactic acidosis, metformin. Improved with bicarbonate drip and dialysis. 4. Benign hypertension. Controlled. 5. Left foot osteomyelitis. On IV antibiotics. Blood cultures positive for gram-positive cocci and wound culture positive for MRSA. 6. Hyperphosphatemia secondary to acute kidney injury. Trending down. On PhosLo. Plan: Maintain normal saline. Follow-up serologies. Remove femoral catheter as it is not functioning well. Continue to assess further need for renal replacement therapy. Repeat labs in the morning.
[2023-01-30 11:46] LABS: Glucose,Whole Blood 250 mg/dL (70-110)
[2023-01-30] MEDS: DAPTOmycin 500 MG in SODIUM CHLORIDE 0.9% 50 ML IVPB SCH (12:32)
--- NOTE | 2023-01-30 13:25 | P.PN ---
Subjective Progress Note Date: 01/30/23 Principal diagnosis: L foot wound and osteomyelitis Patient 62-year-old medical history significant for diabetes mellitus hypertension heart failure with chronic disease patient did have a history of left fifth toe amputation September 2022 and apparently patient seem to have a proble m with a nonhealing wound on the lateral aspect of the left foot, patient also noticed to have worsening of her kidney function on outpatient labs advised to come to the hospital. On today's evaluation that is 01/30/2023, the patient denies any fever or any chills, the patient is breathing comfortably on room air and no need for supplemental oxygen, the patient denies any chest pain and no cough or sputum production, patient denies Abdominal pain and no nausea/vomiting or diarrhea , the patient denies pain to the left foot lateral border wound area. Patient did have white count normalized to 8.2, creatinine is 4.83 blood cultures MRSA culture mrsa Objective - Vital Signs Vital signs: Vital Signs Temp 98.1 F 01/30/23 12:25 Pulse 72 01/30/23 12:25 Resp 18 01/30/23 12:25 BP 129/68 01/30/23 12:25 Pulse Ox 98 01/30/23 12:25 FiO2 Intake & Output 01/29/23 01/30/23 01/30/23 19:59 06:59 18:59 Intake Total 118 Output Total 450 Balance -332 Weight Intake: IV Invasive Line 2 Oral 118 Hemodialysis Output: Urine 450 Uretheral (Baez) 450 Hemodialysis Other: Voiding Method Indwelling Catheter - Exam GENERAL DESCRIPTION: Middle age female lying in bed in no distress RESPIRATORY SYSTEM: Unlabored breathing , decreased breath sounds at bases HEART: S1 S2 regular rate and rhythm ABDOMEN: Soft , no tenderness EXTREMITIES: Left foot lateral border wound is currently dressed no drainage on the dressing - Labs CBC & Chem 7: 01/30/23 08:13 01/30/23 08:13 Labs: Abnormal Lab Results - Last 24 Hours (Table) 01/29/23 01/29/23 01/29/23 Range/Units 16:35 19:12 20:17 RBC (3.80-5.40) m/uL Hgb (11.4-16.0) gm/dL Hct (34.0-46.0) % BUN (7-17) mg/dL Creatinine (0.52-1.04) mg/dL Glucose (74-99) mg/dL POC Glucose (mg/dL) 125 H 194 H (70-110) mg/dL Plasma Lactic Acid Lobito 2.2 H* (0.7-2.0) mmol/L Calcium (8.4-10.2) mg/dL Total Protein (6.3-8.2) g/dL Albumin (3.5-5.0) g/dL 01/30/23 01/30/23 01/30/23 Range/Units 06:10 08:13 08:13 RBC 3.09 L (3.80-5.40) m/uL Hgb 9.6 L D (11.4-16.0) gm/dL Hct 28.4 L (34.0-46.0) % BUN 45 H (7-17) mg/dL Creatinine 4.83 H (0.52-1.04) mg/dL Glucose 197 H (74-99) mg/dL POC Glucose (mg/dL) 172 H (70-110) mg/dL Plasma Lactic Acid Lobito (0.7-2.0) mmol/L Calcium 7.8 L (8.4-10.2) mg/dL Total Protein 6.1 L (6.3-8.2) g/dL Albumin 3.2 L (3.5-5.0) g/dL 01/30/23 Range/Units 11:38 RBC (3.80-5.40) m/uL Hgb (11.4-16.0) gm/dL Hct (34.0-46.0) % BUN (7-17) mg/dL Creatinine (0.52-1.04) mg/dL Glucose (74-99) mg/dL POC Glucose (mg/dL) 250 H (70-110) mg/dL Plasma Lactic Acid Lobito (0.7-2.0) mmol/L Calcium (8.4-10.2) mg/dL Total Protein (6.3-8.2) g/dL Albumin (3.5-5.0) g/dL Microbiology - Last 24 Hours (Table) 01/28/23 14:30 Gram Stain - Preliminary Toe - Left Second Wound Culture - Preliminary Presumptive MRSA 01/28/23 10:00 Blood Culture Gram Stain - Preliminary Blood 11/03/23 09:45 Blood Culture - Preliminary Blood Assessment and Plan (1) Osteomyelitis of left foot Current Visit: Yes Status: Acute Code(s): M86.9 - OSTEOMYELITIS, UNSPECIFIED SNOMED Code(s): 7238231212238286 (2) MRSA bacteremia Current Visit: Yes Status: Acute Code(s): R78.81 - BACTEREMIA; B95.62 - METHICILLIN RESIS STAPH INFCT CAUSING DISEASES CLASSD ELSR SNOMED Code(s): 32534916000031633 Plan: 1patient with a chronic nonhealing wound to the left foot lateral border of the amputation of her left. Now with evidence of worsening osteolysis however recent x-ray last culture done on 12/31/2022 did grew MSSA as well as MRSA p ending outpatient oral Cipro and Keflex therapy as the patient has worsening of her wound and bone destruction concerning for worsening osteomyelitis 2-patient with MRSA bacteremia source is likely left foot osteomyelitis 3blood culture has been debrided to document clearance of bacteremia 4we will keep the patient on daptomycin will need a PICC line once repeat blood culture negative Dictation was produced using [employer] dictation software. please excuse any grammatical, word or spelling errors. Time with Patient: Less than 30
--- NOTE | 2023-01-30 13:45 | P.PN ---
Subjective Progress Note Date: 01/30/23 patient is 62-year-old lady with past medical history significant for hyperlipidemia, hypertension, diabetes mellitus presented to the ER for abnormal labs. Patient stated that she was all right 2 days back he started feeling sick. Patient was feeling lethargic and tired. Patient also having nausea and vomiting afterwards. Patient recently had a left toe amputated in September and was on antibiotics for osteomyelitis. Patient went to see her ID doctor yesterday and they ordered blood work. Her blood work came back showing worsening renal functions for which her ID doctor told her to come to the ER. Initial lab work done in the ER showed WBC 14.4, hemoglobin 11.8, platelet count 43, sodium 137, potassium 6.6, BUN 103, creatinine 19.73, lactate 6.3 phosphorous 13.7 X-ray of the foot done showed osteomyelitis Centered at the fourth MTP joint EKG done in the ER Patient was admitted to medicine service 01/29. Patient seen and examined. States that she is making urine now. States she feels much better compared to yesterday. Denies any lightheadedness or dizziness. Vital signs stable 01/30. Patient seen and examined. Labs done this morning showed WBC 8.2, hemoglobin 9.6, platelet count 264. Patient making good amount of urine, nephrology recommended discontinuing dialysis catheter REVIEW OF SYSTEMS: CONSTITUTIONAL: No fever, no malaise,. CARDIOVASCULAR: No chest pain, no palpitations, no syncope. PULMONARY: No shortness of breath, no cough, GASTROINTESTINAL: No diarrhea, no nausea, no vomiting, no abdominal pain. NEUROLOGICAL: No headaches, no weakness, PHYSICAL EXAMINATION: GENERAL: The patient is alert and oriented x3, not in any acute distress. Well developed, well nourished. HEENT: Pupils are round and equally reacting to light. EOMI. No scleral icterus. No conjunctival pallor. Normocephalic, atraumatic. No pharyngeal erythema. No thyromegaly. CARDIOVASCULAR: S1 and S2 present. No murmurs, rubs, or gallops. PULMONARY: Chest is clear to auscultation, no wheezing or crackles. ABDOMEN: Soft, nontender, nondistended, normoactive bowel sounds. No palpable organomegaly. MUSCULOSKELETAL: No joint swelling or deformity. EXTREMITIES: No cyanosis, clubbing, or pedal edema. NEUROLOGICAL: Gross neurological examination did not reveal any focal deficits. SKIN: No rashes. Assessment and plan Hyperkalemia Acute kidney injury MRSA bacteremia Acute left foot osteomyelitis Lactic acidosis Hyperphosphatemia Hyperlipidemia [id number] diabetes mellitus Hypertension Monitor vital signs Monitor CBC Monitor CMP Continue telemetry monitoring Encourage use of incentive spirometer Strict I's and O's, daily weights. Status post dialysis catheter placement on 01/28, underwent two dialysis session on 01/28 and 01/29. Dialysis catheter discontinued Continue IV fluids Nephrology following Continue daptomycin, ID following Orthopedics evaluated the patient for left foot osteomyelitis at this time they want patient to be stabilized before considering any surgical intervention Labs and medication were reviewed.. Continue same treatment. Continue with symptomatic treatment. Resume home medication. Monitor labs and vitals. DVT and GI prophylaxis. Further recommendations as per clinical course of the patient Dictation was produced using [employer] dictation software. please excuse any gra mmatical, word or spelling errors. Objective - Vital Signs Vital signs: Vital Signs Temp 98.1 F 01/30/23 09:03 Pulse 81 01/30/23 09:03 Resp 18 01/30/23 09:03 BP 115/57 01/30/23 09:03 Pulse Ox 96 01/30/23 09:03 FiO2 Intake & Output 01/29/23 01/30/23 01/30/23 19:59 06:59 18:59 Intake Total 118 Output Total 450 Balance -332 Weight Intake: IV Invasive Line 2 Oral 118 Hemodialysis Output: Urine 450 Uretheral (Baez) 450 Hemodialysis Other: Voiding Method - Labs CBC & Chem 7: 01/30/23 08:13 01/30/23 08:13 Labs: Abnormal Lab Results - Last 24 Hours (Table) 01/29/23 01/29/23 01/29/23 Range/Units 08:41 11:40 12:51 RBC (3.80-5.40) m/uL Hgb (11.4-16.0) gm/dL Hct (34.0-46.0) % POC Glucose (mg/dL) 297 H (70-110) mg/dL Plasma Lactic Acid Lobito 2.4 H* 4.0 H* (0.7-2.0) mmol/L 01/29/23 01/29/23 01/29/23 Range/Units 16:35 19:12 20:17 RBC (3.80-5.40) m/uL Hgb (11.4-16.0) gm/dL Hct (34.0-46.0) % POC Glucose (mg/dL) 125 H 194 H (70-110) mg/dL Plasma Lactic Acid Lobito 2.2 H* (0.7-2.0) mmol/L 01/30/23 01/30/23 Range/Units 06:10 08:13 RBC 3.09 L (3.80-5.40) m/uL Hgb 9.6 L D (11.4-16.0) gm/dL Hct 28.4 L (34.0-46.0) % POC Glucose (mg/dL) 172 H (70-110) mg/dL Plasma Lactic Acid Lobito (0.7-2.0) mmol/L Microbiology - Last 24 Hours (Table) 01/28/23 14:30 Gram Stain - Preliminary Toe - Left Second Wound Culture - Preliminary Presumptive MRSA 01/28/23 10:00 Blood Culture Gram Stain - Preliminary Blood 01/28/23 09:45 Blood Culture - Preliminary Blood
--- NOTE | 2023-01-30 13:46 | OP ---
OPERATIVE REPORT DATE OF SERVICE : PROCEDURES PERFORMED: Removal of dialysis catheter, right femoral approach. DESCRIPTION OF PROCEDURE: The patient was seen in her room. Right side of the groin was prepped and drapes were applied in sterile manner. 1% lidocaine was infiltrated. Stitches were removed. Catheter was removed. Pressure dressing was applied. The patient tolerated the procedure well. EPIFANIO / MARVIN: [id number] /
[2023-01-30] MEDS ORDERED: Potassium Replacement Protocol 1 EACH MISC MISCELLANE PRN (14:52)
[2023-01-30] MEDS ORDERED: POTASSIUM CHLORIDE ER 20 MEQ TAB.ER PO SCH (16:00)
[2023-01-30 16:57] LABS: Glucose,Whole Blood 205 mg/dL (70-110)
[2023-01-30] MEDS ORDERED: METOPROLOL TARTRATE 5 MG/5 ML VIAL IVP ONE (18:03)
[2023-01-30] MEDS ORDERED: HEPARIN SODIUM 1,000 UN/ML (10ML VL) IV PRN (18:06)
[2023-01-30 18:44] LABS: INR 0.9 (<1.2); Partial Thromboplastin Time 24.6 sec (22.0-30.0); Prothrombin Time 10.2 sec (10.0-12.5)
[2023-01-30] MEDS: HEPARIN SOD,PORK IN 0.45% NACL 25,000 UNIT in 0.45% NACL 1 250ML.BAG IV SCH (18:45)
[2023-01-30 20:07] LABS: Glucose,Whole Blood 268 mg/dL (70-110)
[2023-01-30] MEDS: METOPROLOL TARTRATE 25 MG TAB PO SCH (20:43)
[2023-01-30] MEDS: DILTIAZEM 125 MG in SODIUM CHLORIDE 0.9% 100 ML IV SCH (21:56)
[2023-01-31] MEDS: SODIUM CHLORIDE 0.9% 1,000 ML IV SCH ×2 (02:15→17:22)
[2023-01-31 06:14] LABS: Glucose,Whole Blood 206 mg/dL (70-110)
[2023-01-31] MEDS: INSULIN ASPART (NovoLOG) 100 UNIT/ML VIAL SQ SCH ×4 (06:42→20:50)
[2023-01-31] MEDS: CALCIUM ACETATE 667 MG TAB PO SCH ×3 (06:42→17:21)
[2023-01-31 09:06] LABS: INR 0.9 (<1.2); Prothrombin Time 10.4 sec (10.0-12.5)
[2023-01-31 09:19] LABS: African American GFR (CKD) 13 (>60 ml/min/1.73 sqM); Anion Gap 11 mmol/L; Blood Urea Nitrogen 36 mg/dL (7-17); Calcium 8.2 mg/dL (8.4-10.2); Carbon Dioxide 23 mmol/L (22-30); Chloride 103 mmol/L (98-107); Glucose 219 mg/dL (74-99); Magnesium 1.5 mg/dL (1.6-2.3); Non-African American GFR(CKD) 11 (>60 ml/min/1.73 sqM); Potassium 3.7 mmol/L (3.5-5.1); Sodium 137 mmol/L (137-145)
[2023-01-31] MEDS: METOPROLOL TARTRATE 25 MG TAB PO SCH ×2 (09:28→20:49)
[2023-01-31] MEDS: ASPIRIN 81 MG PO SCH (09:28)
--- NOTE | 2023-01-31 11:12 | P.PN ---
Subjective Progress Note Date: 01/31/23 Principal diagnosis: L foot wound and osteomyelitis Patient 62-year-old medical history significant for diabetes mellitus hypertension heart failure with chronic disease patient did have a history of left fifth toe amputation September 2022 and apparently patient seem to have a proble m with a nonhealing wound on the lateral aspect of the left foot, patient also noticed to have worsening of her kidney function on outpatient labs advised to come to the hospital. On today's evaluation that is 01/31/2023, the patient remains to be afebrile, the patient is breathing comfortably on room air , the patient denies any chest pain or cough and no sputum production, patient denies nausea/vomiting or diarrhea , no abdominal pain, the patient denies pain to the left foot lateral border wound area. Patient did have white count normalized to 8.2 as of 01/30/2023, creatinine is down to 3.93, blood cultures MRSA, local culture mrsa Objective - Vital Signs Vital signs: Vital Signs Temp 98.3 F 01/31/23 08:00 Pulse 70 01/31/23 08:00 Resp 16 01/31/23 08:00 BP 120/60 01/31/23 08:00 Pulse Ox 99 01/31/23 08:00 FiO2 Intake & Output 01/30/23 01/31/23 01/31/23 18:59 06:59 18:59 Intake Total 308 144.087 Output Total 1375 1700 Balance -1067 -1555.913 Intake: IV 20 40 Invasive Line 4 20 40 Intake, IV Titration 50 104.087 Amount DAPTOmycin 500 mg In 50 Sodium Chloride 0.9% 50 ml @ 100 mls/hr IVPB Q48H [facility] Rx#:[id number] Diltiazem 125 mg In 37.667 Sodium Chloride 0.9% 100 ml @ 5 MG/HR 5 mls/hr IV .Q24H [facility] Rx#:[id number] Heparin Sod,Pork in 0.45% 66.42 NaCl 25,000 unit In 0.45 % NaCl 1 250ml.bag @ 12 UNITS/KG/HR 9.84 mls/hr IV .Q24H [facility] Rx#: [id number] Oral 238 Output: Urine 1375 1700 Uretheral (Baez) 450 Other: Voiding Method Indwelling Catheter Indwelling Catheter Indwelling Catheter - Exam GENERAL DESCRIPTION: Middle age female lying in bed in no distress RESPIRATORY SYSTEM: Unlabored breathing , decreased breath sounds at bases HEART: S1 S2 regular rate and rhythm ABDOMEN: Soft , no tenderness EXTREMITIES: Left foot lateral border wound is currently dressed no drainage on the dressing - Labs CBC & Chem 7: 01/30/23 08:13 01/31/23 07:59 Labs: Abnormal Lab Results - Last 24 Hours (Table) 01/30/23 01/30/23 01/30/23 Range/Units 11:38 16:56 20:06 APTT (22.0-30.0) sec BUN (7-17) mg/dL Creatinine (0.52-1.04) mg/dL Glucose (74-99) mg/dL POC Glucose (mg/dL) 250 H 205 H 268 H (70-110) mg/dL Calcium (8.4-10.2) mg/dL Magnesium (1.6-2.3) mg/dL 01/30/23 01/31/23 01/31/23 Range/Units 23:55 06:13 07:59 APTT 31.3 H (22.0-30.0) sec BUN 36 H (7-17) mg/dL Creatinine 3.93 H (0.52-1.04) mg/dL Glucose 219 H (74-99) mg/dL POC Glucose (mg/dL) 206 H (70-110) mg/dL Calcium 8.2 L (8.4-10.2) mg/dL Magnesium 1.5 L (1.6-2.3) mg/dL 01/31/23 Range/Units 07:59 APTT 49.7 H (22.0-30.0) sec BUN (7-17) mg/dL Creatinine (0.52-1.04) mg/dL Glucose (74-99) mg/dL POC Glucose (mg/dL) (70-110) mg/dL Calcium (8.4-10.2) mg/dL Magnesium (1.6-2.3) mg/dL Microbiology - Last 24 Hours (Table) 01/28/23 09:45 Blood Culture - Preliminary Blood 01/28/23 14:30 Gram Stain - Final Toe - Left Second Wound Culture - Final Methicillin resist S. aureus 01/28/23 10:00 Blood Culture Gram Stain - Preliminary Blood Blood Culture - Preliminary Presumptive MRSA Assessment and Plan (1) Osteomyelitis of left foot Current Visit: Yes Status: Acute Code(s): M86.9 - OSTEOMYELITIS, UNSPECIFIED SNOMED Code(s): 9684838371149108 (2) MRSA bacteremia Current Visit: Yes Status: Acute Code(s): R78.81 - BACTEREMIA; B95.62 - METHICILLIN RESIS STAPH INFCT CAUSING DISEASES CLASSD ELSWHR SNOMED Code(s): 26674974223491894 Plan: 1patient with a chronic nonhealing wound to the left foot lateral border of the amputation of her left. Now with evidence of worsening osteolysis however recent x-ray last culture done on 12/31/2022 did grew MSSA as well as MRSA pending outpatient oral Cipro and Keflex therapy as the patient has worsening of her wound and bone destruction concerning for worsening osteomyelitis 2-patient with MRSA bacteremia source is likely left foot osteomyelitis 3blood culture has been repeated to document clearance of bacteremia, if the blood culture remains to be negative by tomorrow patient will be able to get a PICC line once cleared by nephrology 4patient to continue with the daptomycin will need a 6 week course because of underlying osteomyelitis Dictation was produced using [employer] dictation software. please excuse any grammatical, word or spelling errors. Time with Patient: Less than 30
[2023-01-31 11:50] LABS: Glucose,Whole Blood 195 mg/dL (70-110)
--- NOTE | 2023-01-31 12:06 | P.PN ---
Subjective Progress Note Date: 01/31/23 patient is 62-year-old lady with past medical history significant for hyperlipidemia, hypertension, diabetes mellitus presented to the ER for abnormal labs. Patient stated that she was all right 2 days back he started feeling sick. Patient was feeling lethargic and tired. Patient also having nausea and vomiting afterwards. Patient recently had a left toe amputated in September and was on antibiotics for osteomyelitis. Patient went to see her ID doctor yesterday and they ordered blood work. Her blood work came back showing worsening renal functions for which her ID doctor told her to come to the ER. Initial lab work done in the ER showed WBC 14.4, hemoglobin 11.8, platelet count 43, sodium 137, potassium 6.6, BUN 103, creatinine 19.73, lactate 6.3 phosphorous 13.7 X-ray of the foot done showed osteomyelitis Centered at the fourth MTP joint EKG done in the ER Patient was admitted to medicine service 01/29. Patient seen and examined. States that she is making urine now. States she feels much better compared to yesterday. Denies any lightheadedness or dizziness. Vital signs stable 01/30. Patient seen and examined. Labs done this morning showed WBC 8.2, hemoglobin 9.6, platelet count 264. Patient making good amount of urine, nephrology recommended discontinuing dialysis catheter 01/31. Patient seen and examined. Patient went into atrial fibrillation with RV R overnight, had to started on Cardizem drip. Denies any chest pain or palpitations. REVIEW OF SYSTEMS: CONSTITUTIONAL: No fever, no malaise,. CARDIOVASCULAR: No chest pain, no palpitations, no syncope. PULMONARY: No shortness of breath, no cough, GASTROINTESTINAL: No diarrhea, no nausea, no vomiting, no abdominal pain. NEUROLOGICAL: No headaches, no weakness, PHYSICAL EXAMINATION: GENERAL: The patient is alert and oriented x3, not in any acute distress. Well developed, well nourished. HEENT: Pupils are round and equally reacting to light. EOMI. No scleral icterus. No conjunctival pallor. Normocephalic, atraumatic. No pharyngeal erythema. No thyromegaly. CARDIOVASCULAR: S1 and S2 present. No murmurs, rubs, or gallops. PULMONARY: Chest is clear to auscultation, no wheezing or crackles. ABDOMEN: Soft, nontender, nondistended, normoactive bowel sounds. No palpable organomegaly. MUSCULOSKELETAL: No joint swelling or deformity. EXTREMITIES: No cyanosis, clubbing, or pedal edema. NEUROLOGICAL: Gross neurological examination did not reveal any focal deficits. SKIN: No rashes. Assessment and plan Hyperkalemia Acute kidney injury MRSA bacteremia Atrial fibrillation with RVR Acute left foot osteomyelitis Lactic acidosis Hyperphosphatemia Hyperlipidemia [id number] diabetes mellitus Hypertension Monitor vital signs Monitor CBC Monitor CMP Continue telemetry monitoring Encourage use of incentive spirometer Continue Cardizem drip, pharmacy dose heparin Ordered 2-D echo Strict I's and O's, daily weights. Status post dialysis catheter placement on 01/28, underwent two dialysis session on 01/28 and 01/29. Dialysis catheter discontinued Continue IV fluids Nephrology following Continue daptomycin, ID following Consult cardiology Orthopedics evaluated the patient for left foot osteomyelitis at this time they want patient to be stabilized before considering any surgical intervention Labs and medication were reviewed.. Continue same treatment. Continue with symptomatic treatment. Resume home medication. Monitor labs and vitals. DVT and GI prophylaxis. Further recommendations as per clinical course of the patient Dictation was produced using [employer] dictation software. please excuse any grammatical, word or spelling errors. Objective - Vital Signs Vital signs: Vital Signs Temp 98.3 F 01/31/23 04:00 Pulse 66 01/31/23 04:00 Resp 16 01/31/23 04:00 BP 103/59 01/31/23 04:00 Pulse Ox 100 01/31/23 04:00 FiO2 Intake & Output 01/30/23 01/31/23 01/31/23 18:59 06:59 18:59 Intake Total 308 144.087 Output Total 1375 1700 Balance -1067 -1555.913 Intake: IV 20 40 Invasive Line 4 20 40 Intake, IV Titration 50 104.087 Amount DAPTOmycin 500 mg In 50 Sodium Chloride 0.9% 50 ml @ 100 mls/hr IVPB Q48H [facility] Rx#:[id number] Diltiazem 125 mg In 37.667 Sodium Chloride 0.9% 100 ml @ 5 MG/HR 5 mls/hr IV .Q24H [facility] Rx#:[id number] Heparin Sod,Pork in 0.45% 66.42 NaCl 25,000 unit In 0.45 % NaCl 1 250ml.bag @ 12 UNITS/KG/HR 9.84 mls/hr IV .Q24H [facility] Rx#: [id number] Oral 238 Output: Urine 1375 1700 Uretheral (Baez) 450 Other: Voiding Method Indwelling Catheter Indwelling Catheter - Labs CBC & Chem 7: 01/30/23 08:13 01/31/23 07:59 Labs: Abnormal Lab Results - Last 24 Hours (Table) 01/30/23 01/30/23 01/30/23 Range/Units 08:13 11:38 16:56 APTT (22.0-30.0) sec BUN 45 H (7-17) mg/dL Creatinine 4.83 H (0.52-1.04) mg/dL Glucose 197 H (74-99) mg/dL POC Glucose (mg/dL) 250 H 205 H (70-110) mg/dL Calcium 7.8 L (8.4-10.2) mg/dL Magnesium (1.6-2.3) mg/dL Total Protein 6.1 L (6.3-8.2) g/dL Albumin 3.2 L (3.5-5.0) g/dL 01/30/23 01/30/23 01/31/23 Range/Units 20:06 23:55 06:13 APTT 31.3 H (22.0-30.0) sec BUN (7-17) mg/dL Creatinine (0.52-1.04) mg/dL Glucose (74-99) mg/dL POC Glucose (mg/dL) 268 H 206 H (70-110) mg/dL Calcium (8.4-10.2) mg/dL Magnesium (1.6-2.3) mg/dL Total Protein (6.3-8.2) g/dL Albumin (3.5-5.0) g/dL 01/31/23 01/31/23 Range/Units 07:59 07:59 APTT 49.7 H (22.0-30.0) sec BUN 36 H (7-17) mg/dL Creatinine 3.93 H (0.52-1.04) mg/dL Glucose 219 H (74-99) mg/dL POC Glucose (mg/dL) (70-110) mg/dL Calcium 8.2 L (8.4-10.2) mg/dL Magnesium 1.5 L (1.6-2.3) mg/dL Total Protein (6.3-8.2) g/dL Albumin (3.5-5.0) g/dL Microbiology - Last 24 Hours (Table) 01/28/23 09:45 Blood Culture - Preliminary Blood 01/28/23 14:30 Gram Stain - Final Toe - Left Second Wound Culture - Final Methicillin resist S. aureus 01/28/23 10:00 Blood Culture Gram Stain - Preliminary Blood Blood Culture - Preliminary Presumptive MRSA
--- NOTE | 2023-01-31 12:36 | P.PN ---
Subjective Patient is seen for follow-up for acute kidney injury. Patient was maintained on hemodialysis initially however last treatment was on 01/29/2023. Renal function has been improving with serum creatinine down to 3.9 today. Good urine output No significant complaints today. Objective - Vital Signs Vital signs: Vital Signs Temp 98.3 F 01/31/23 08:00 Pulse 70 01/31/23 08:00 Resp 16 01/31/23 08:00 BP 120/60 01/31/23 08:00 Pulse Ox 99 01/31/23 08:00 FiO2 Intake & Output 01/30/23 01/31/23 01/31/23 18:59 06:59 18:59 Intake Total 308 144.087 Output Total 1375 1700 Balance -1067 -1555.913 Intake: IV 20 40 Invasive Line 4 20 40 Intake, IV Titration 50 104.087 Amount DAPTOmycin 500 mg In 50 Sodium Chloride 0.9% 50 ml @ 100 mls/hr IVPB Q48H [facility] Rx#:[id number] Diltiazem 125 mg In 37.667 Sodium Chloride 0.9% 100 ml @ 5 MG/HR 5 mls/hr IV .Q24H [facility] Rx#:[id number] Heparin Sod,Pork in 0.45% 66.42 NaCl 25,000 unit In 0.45 % NaCl 1 250ml.bag @ 12 UNITS/KG/HR 9.84 mls/hr IV .Q24H [facility] Rx#: [id number] Oral 238 Output: Urine 1375 1700 Uretheral (Baez) 450 Other: Voiding Method Indwelling Catheter Indwelling Catheter Indwelling Catheter - Exam Awake, comfortable, no acute distress Examination of the heart S1 and S2 Examination of the lungs bilateral breath sounds are heard Abdomen is soft nontender Examination of lower extremity shows no evidence of edema 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 - Labs CBC & Chem 7: 01/30/23 08:13 01/31/23 07:59 Labs: Abnormal Lab Results - Last 24 Hours (Table) 01/30/23 01/30/23 01/30/23 Range/Units 16:56 20:06 23:55 APTT 31.3 H (22.0-30.0) sec BUN (7-17) mg/dL Creatinine (0.52-1.04) mg/dL Glucose (74-99) mg/dL POC Glucose (mg/dL) 205 H 268 H (70-110) mg/dL Calcium (8.4-10.2) mg/dL Magnesium (1.6-2.3) mg/dL 01/31/23 01/31/23 01/31/23 Range/Units 06:13 07:59 07:59 APTT 49.7 H (22.0-30.0) sec BUN 36 H (7-17) mg/dL Creatinine 3.93 H (0.52-1.04) mg/dL Glucose 219 H (74-99) mg/dL POC Glucose (mg/dL) 206 H (70-110) mg/dL Calcium 8.2 L (8.4-10.2) mg/dL Magnesium 1.5 L (1.6-2.3) mg/dL 01/31/23 Range/Units 11:49 APTT (22.0-30.0) sec BUN (7-17) mg/dL Creatinine (0.52-1.04) mg/dL Glucose (74-99) mg/dL POC Glucose (mg/dL) 195 H (70-110) mg/dL Calcium (8.4-10.2) mg/dL Magnesium (1.6-2.3) mg/dL Microbiology - Last 24 Hours (Table) 01/28/23 09:45 Blood Culture - Preliminary Blood 01/28/23 14:30 Gram Stain - Final Toe - Left Second Wound Culture - Final Methicillin resist S. aureus 01/28/23 10:00 Blood Culture Gram Stain - Preliminary Blood Blood Culture - Preliminary Presumptive MRSA Assessment and Plan Assessment: 1. Acute kidney injury secondary to septic ATN. Worsened with the use of diuretic, HUMA inhibitor. Baseline creatinine near 0.87 from October 2022 and elevated at 9.73 this admission - status post 2 treatments of hemodialysis with last treatment on 01/29/2023. Nonoliguric. No hydronephrosis noted on kidney ultrasound. Urine eosinophils negative. Renal function is improving with good urine output. Hemodialysis on hold. 2. Hyperkalemia secondary to acute kidney injury, metabolic acidosis and lisinopril. Improved postdialysis. 3. Metabolic acidosis secondary to acute kidney injury, lactic acidosis, metformin. Improved with bicarbonate drip and dialysis. 4. Benign hypertension. Controlled. 5. Left foot osteomyelitis. On IV antibiotics. Blood cultures positive for gram-positive cocci and wound culture positive for MRSA. 6. Hyperphosphatemia secondary to acute kidney injury. Trending down. On PhosLo. Plan: Continue to hold hemodialysis Repeat labs in a.m. DC dialysis catheter if renal function continues to improve tomorrow. Continue antibiotics Continue IV fluids Okay to proceed with PICC line
--- NOTE | 2023-01-31 12:56 | CDI ---
Documentation Clarification Form Date: 01/31/2023 12:07:25 PM From: Keely Arzate RN CCDS Phone: [phone] Admit Date: 01/28/2023 11:05:00 AM Patient Name: Bladimir Moreno Visit Number: [id number] Discharge Date: ATTENTION: The Clinical Documentation Specialists (CDI) and [facility] Coding Staff appreciate your assistance in clarifying documentation. Please respond to the clarification below the line at the bottom and electronically sign. The CDI & [facility] Coding staff will review the response and follow-up if needed. Please note: Queries are made part of the Legal Health Record. If you have any questions, please contact the author of this message via ITS. Dr. Enrique There is documentation of MRSA bacteremia, 01/30, ID note. Bacteremia is considered a lab finding. Additional clarification regarding bacteremia is requested. Patient history/risk factors: 62-year-old female presents to the ED with feeling lethargic and tired with nausea and vomiting. Medical History: DM, Osteomyelitis left foot and HTN. 01/28, H&P. Clinical Indicators: WBC, 01/28: Wbc 14.4 Left Shift 01/28: Neutrophils 12.1 Blood Culture, 01/28: presumptive MRSA Left Toe wound culture, 01/28: MRSA ID Note, 01/31: Patient with MRSA bacteremia source is likely left foot osteomyelitis. Treatment: ID consult above, Debridment; 01/28 Daptomycin ivpb q48hr Please provide additional clarification regarding the etiology/cause and/or clinical significance of the bacteremia: [ ] MRSA Bacteremia source is likely left foot osteomyelitis and is related to sepsis [ ] MRSA Bacteremia is due to infectious process, likely left foot osteomyelitis [ ] Other, please specify [ ] Unable to determine answered in Medicine note 02/01 Dr Enrique / Yamile Maldonado NP Acute kidney injury d/t ATN from sepsis requiring temporary hemodialysis pt is recovering MRSA bacteremia source of infection left foot wound. (Template Last Revised: May 2020) MTDD
[2023-01-31 14:26] LABS: C-ANCA <1:20 Titer (<1:20)
[2023-01-31 16:25] LABS: Glucose,Whole Blood 296 mg/dL (70-110)
[2023-01-31] MEDS: HEPARIN SOD,PORK IN 0.45% NACL 25,000 UNIT in 0.45% NACL 1 250ML.BAG IV SCH (17:22)
[2023-01-31 20:16] LABS: Glucose,Whole Blood 225 mg/dL (70-110)
[2023-01-31] MEDS: DILTIAZEM 125 MG in SODIUM CHLORIDE 0.9% 100 ML IV SCH (22:51)
[2023-02-01] MEDS: SODIUM CHLORIDE 0.9% 1,000 ML IV SCH ×2 (05:14→15:45)
[2023-02-01 05:58] LABS: Glucose,Whole Blood 185 mg/dL (70-110)
[2023-02-01] MEDS: INSULIN ASPART (NovoLOG) 100 UNIT/ML VIAL SQ SCH ×4 (06:20→20:28)
[2023-02-01] MEDS: CALCIUM ACETATE 667 MG TAB PO SCH ×3 (06:20→17:05)
[2023-02-01 09:00] LABS: ALT 22 U/L (4-34); AST 32 U/L (14-36); African American GFR (CKD) 20 (>60 ml/min/1.73 sqM); Alkaline Phosphatase 60 U/L (38-126); Anion Gap 8 mmol/L; Blood Urea Nitrogen 27 mg/dL (7-17); Calcium 8.1 mg/dL (8.4-10.2); Carbon Dioxide 21 mmol/L (22-30); Chloride 107 mmol/L (98-107); Glucose 179 mg/dL (74-99); Non-African American GFR(CKD) 17 (>60 ml/min/1.73 sqM); Potassium 3.6 mmol/L (3.5-5.1); Sodium 136 mmol/L (137-145); Total Bilirubin 0.4 mg/dL (0.2-1.3)
[2023-02-01] MEDS: METOPROLOL TARTRATE 25 MG TAB PO SCH ×2 (09:20→20:27)
[2023-02-01] MEDS: ASPIRIN 81 MG PO SCH (09:20)
[2023-02-01 11:27] LABS: Glucose,Whole Blood 189 mg/dL (70-110)
[2023-02-01 12:09] LABS: HCT 28.2 % (34.0-46.0); HGB 9.1 gm/dL (11.4-16.0); Hypochromasia Slight; MCH 30.2 pg (25.0-35.0); MCHC 32.4 g/dL (31.0-37.0); Mean Platelet Volume 8.2; Platelet Count 258 k/uL (150-450); RBC 3.03 m/uL (3.80-5.40); RDW 15.3 % (11.5-15.5); WBC 13.3 k/uL (3.8-10.6)
--- NOTE | 2023-02-01 12:22 | P.PN ---
Subjective Patient is seen for follow-up for acute kidney injury. Patient was maintained on hemodialysis initially however last treatment was on 01/29/2023. Renal function has been improving with serum creatinine down to 2.7 today. Good urine output No significant complaints today. Objective - Vital Signs Vital signs: Vital Signs Temp 98.3 F 02/01/23 11:15 Pulse 69 02/01/23 11:15 Resp 16 02/01/23 11:15 BP 158/79 02/01/23 11:15 Pulse Ox 98 02/01/23 11:15 FiO2 Intake & Output 01/31/23 02/01/23 02/01/23 18:59 06:59 18:59 Intake Total 781.58 540 Output Total 1900 1300 700 Balance -1118.42 -760 -700 Weight 84.5 kg Intake: Intake, IV Titration 183.58 Amount Heparin Sod,Pork in 0.45% 183.58 NaCl 25,000 unit In 0.45 % NaCl 1 250ml.bag @ 12 UNITS/KG/HR 9.84 mls/hr IV .Q24H [facility] Rx#: [id number] Oral 598 540 Output: Urine 1900 1300 700 Other: Voiding Method Indwelling Catheter Indwelling Catheter Indwelling Catheter - Exam Awake, comfortable, no acute distress Examination of the heart S1 and S2 Examination of the lungs bilateral breath sounds are heard Abdomen is soft nontender Examination of lower extremity shows no evidence of edema 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 - Labs CBC & Chem 7: 02/01/23 11:34 02/01/23 08:19 Labs: Abnormal Lab Results - Last 24 Hours (Table) 01/31/23 01/31/23 02/01/23 Range/Units 16:23 20:10 05:56 WBC (3.8-10.6) k/uL RBC (3.80-5.40) m/uL Hgb (11.4-16.0) gm/dL Hct (34.0-46.0) % APTT (22.0-30.0) sec Sodium (137-145) mmol/L Carbon Dioxide (22-30) mmol/L BUN (7-17) mg/dL Creatinine (0.52-1.04) mg/dL Glucose (74-99) mg/dL POC Glucose (mg/dL) 296 H 225 H 185 H (70-110) mg/dL Calcium (8.4-10.2) mg/dL Magnesium (1.6-2.3) mg/dL Total Protein (6.3-8.2) g/dL Albumin (3.5-5.0) g/dL 02/01/23 02/01/23 02/01/23 Range/Units 08:19 08:19 11:26 WBC (3.8-10.6) k/uL RBC (3.80-5.40) m/uL Hgb (11.4-16.0) gm/dL Hct (34.0-46.0) % APTT 38.3 H (22.0-30.0) sec Sodium 136 L (137-145) mmol/L Carbon Dioxide 21 L (22-30) mmol/L BUN 27 H (7-17) mg/dL Creatinine 2.78 H (0.52-1.04) mg/dL Glucose 179 H (74-99) mg/dL POC Glucose (mg/dL) 189 H (70-110) mg/dL Calcium 8.1 L (8.4-10.2) mg/dL Magnesium (1.6-2.3) mg/dL Total Protein 6.0 L (6.3-8.2) g/dL Albumin 3.0 L (3.5-5.0) g/dL 02/01/23 02/01/23 Range/Units 11:34 11:34 WBC 13.3 H (3.8-10.6) k/uL RBC 3.03 L (3.80-5.40) m/uL Hgb 9.1 L (11.4-16.0) gm/dL Hct 28.2 L (34.0-46.0) % APTT (22.0-30.0) sec Sodium (137-145) mmol/L Carbon Dioxide (22-30) mmol/L BUN (7-17) mg/dL Creatinine (0.52-1.04) mg/dL Glucose (74-99) mg/dL POC Glucose (mg/dL) (70-110) mg/dL Calcium (8.4-10.2) mg/dL Magnesium 1.2 L (1.6-2.3) mg/dL Total Protein (6.3-8.2) g/dL Albumin (3.5-5.0) g/dL Microbiology - Last 24 Hours (Table) 01/28/23 09:45 Blood Culture - Preliminary Blood 01/30/23 08:13 Blood Culture - Preliminary Blood 01/28/23 10:00 Blood Culture Gram Stain - Final Blood Blood Culture - Final Methicillin resist S. aureus Assessment and Plan Assessment: 1. Acute kidney injury secondary to septic ATN. Worsened with the use of diuretic, HUMA inhibitor. Baseline creatinine near 0.87 from October 2022 and elevated at 9.73 this admission - status post 2 treatments of hemodialysis with last treatment on 01/29/2023. Nonoliguric. No hydronephrosis noted on kidney ultrasound. Urine eosinophils negative. Renal function is improving with good urine output. Hemodialysis on hold. 2. Hyperkalemia secondary to acute kidney injury, metabolic acidosis and lisinopril. Improved postdialysis. 3. Metabolic acidosis secondary to acute kidney injury, lactic acidosis, metformin. Improved with bicarbonate drip and dialysis. 4. Benign hypertension. Controlled. 5. Left foot osteomyelitis. On IV antibiotics. Blood cultures positive for gram-positive cocci and wound culture positive for MRSA. 6. Hyperphosphatemia secondary to acute kidney injury. Trending down. On PhosLo. Plan: Can DC Baez catheter Repeat labs in a.m. Continue antibiotics Continue IV fluids Okay to proceed with PICC line
[2023-02-01] MEDS: HEPARIN SOD,PORK IN 0.45% NACL 25,000 UNIT in 0.45% NACL 1 250ML.BAG IV SCH (12:30)
[2023-02-01] MEDS: DAPTOmycin 500 MG in SODIUM CHLORIDE 0.9% 50 ML IVPB SCH (12:30)
--- NOTE | 2023-02-01 14:16 | P.CRDCN ---
History of Present Illness Consult date: 02/01/23 Consult reason: atrial fibrillation (With RVR) History of present illness: History of present illness: This is a 62 year old female that follows with translator, Dr. Gonzalez at [facility] with past history of 4 vessel CABG in September 2018, previous episode of atrial fibrillation following CABG, diabetes, hypertension, hyperlipidemia. Patient gives history that she has a wound on her foot and has had ongoing problems through the summer been on multiple antibiotics and followed by ID and copy camera operator. She was found to have abnormal lab work and was sent in the hospital for further evaluation. Patient is been treated for acute kidney injury requiring dialysis. Patient was found to be in A. fib with RVR on the evening of 01 30 and converted in the morning on 01 31. She was on a heparin drip and Cardizem drip. Cardizem drip has been paused. Patient did feel palpitations during the episode of A. fib with RVR. EKG #1 sinus rhythm at 57 bpm, #2 A. fib at 158 bpm WBC 13.3, hemoglobin 9.1, platelet count 258. Sodium 136, potassium 3.6 BUN 27, creatinine 2.78. Hemoglobin A1c 7.4. Home cardiac medications: Amlodipine 2.5 mg daily, aspirin 81 mg daily, atorvastatin 40 mg at bedtime, lisinopril hydrochlorothiazide 1 daily, Lopressor 50 mg twice daily. Review Of Systems: At the time of my evaluation: Constitutional: No fever, no chills. No weakness, fatigue or lethargy. EENT: No headache. No dizziness. Lungs: No shortness of breath, cough, no sputum production. No wheezing. Cardiovascular: No chest pain, no lower extremity edema. No palpitations. No paroxysmal nocturnal dyspnea. No orthopnea. No lightheadedness or dizziness. No syncopal episodes. Abdominal: No abdominal pain. No nausea, vomiting. No diarrhea. No constipation. No bloody or tarry stools. Genitourinary: No dysuria.. No urinary retention. Musculoskeletal: No myalgias. No muscle weakness, no frequent falls. No back pain. No neck pain. Integumentary: Foot wound. No rash. No unusual bruising. Neurologic: No aphasia. No facial droop. No change in mentation. No head injury. No headache. Physical examination: Gen: This is a 62-year-old female. She is resting bed appears to be comfortable and in no acute distress. VS: reviewed HEENT: Head is atraumatic, normocephalic. Pupils equal, round. Sclerae is anicteric. NECK: Supple. No JVD. LUNGS: Clear to auscultation. No wheezes or rhonchi. No intercostal retractions. HEART: Regular rate and rhythm. No murmur. ABDOMEN: Soft No tenderness. EXTREMITIES: No pedal edema. NEUROLOGICAL: Patient is awake, alert and oriented x3. Assessment: Paroxysmal atrial fibrillation with RVR, converted to sinus rhythm Acute kidney injury Hyperkalemia Metabolic acidosis Left foot osteomyelitis MRSA bacteremia Coronary artery disease status post 4 vessel CABG Hypertension Plan: Discontinue Cardizem drip and heparin drip Start patient on eliquis 5 mg twice daily Obtain 2-D echocardiogram and Doppler study to assess cardiac structure and function Further recommendations to follow based upon clinical course At the time of discharge, patient will follow-up with her primary translator, Dr. Gonzalez Thank you kindly for this consultation. Nurse practitioner note has been reviewed, I agree with documented findings and plan of care. Patient was seen and examined. Past Medical History Past Medical History: Coronary Artery Disease (CAD), Heart Failure, Diabetes Mellitus, Hypertension History of Any Multi-Drug Resistant Organisms: MRSA Date of last positivie culture/infection: 01/28/23 MDRO Source:: Toe Left Second Past Surgical History: Joint Replacement, Orthopedic Surgery Additional Past Surgical History / Comment(s): RIGHT FOOT STEEL RODS LEFT BABY TOE AMPUTATION Past Psychological History: No Psychological Hx Reported Smoking Status: Never smoker Past Alcohol Use History: None Reported Past Drug Use History: None Reported Medications and Allergies Home Medications Medication Instructions Recorded Confirmed Type Aspirin 81 mg PO DAILY 01/28/23 01/28/23 History Atorvastatin Calcium [Lipitor] 40 mg PO HS 01/28/23 01/28/23 History Lisinopril-Hctz 20-25 mg 1 tab PO DAILY 01/28/23 01/28/23 History [Zestoretic 20-25] Metoprolol Tartrate [Lopressor] 50 mg PO BID 01/28/23 01/28/23 History Pentoxifylline [TRENtal] 400 mg PO AC-TID 01/28/23 01/28/23 History Vitamin B Complex 1 cap PO DAILY 01/28/23 01/28/23 History amLODIPine [Norvasc] 2.5 mg PO DAILY 01/28/23 01/28/23 History glipiZIDE [Glucotrol] 10 mg PO AC-BID 01/28/23 01/28/23 History metFORMIN HCL 1,000 mg PO AC-BID 01/28/23 01/28/23 History Apixaban [Eliquis] 5 mg PO BID #180 tab 02/01/23 Rx Allergies Allergy/AdvReac Type Severity Reaction Status Date / Time adhesive tape AdvReac Rash/Hives Verified 01/28/23 17:39 latex AdvReac Rash/Hives Verified 01/28/23 17:39 Physical Exam Vitals: Vital Signs Temp Pulse Resp BP Pulse Ox 02/01/23 11:15 98.3 F 69 16 158/79 98 02/01/23 11:00 98.3 F 69 16 158/79 98 02/01/23 09:20 74 16 02/01/23 08:00 96.2 F L 74 16 144/70 97 02/01/23 07:55 74 16 02/01/23 04:00 97.9 F 73 18 140/63 96 02/01/23 02:00 68 18 02/01/23 00:00 98.3 F 68 18 128/62 99 01/31/23 20:00 98.2 F 75 16 123/64 97 01/31/23 16:00 71 104/54 97 Intake and Output 01/31/23 02/01/23 02/01/23 22:59 06:59 14:59 Intake Total 301.58 540 235.34 Output Total 1900 1300 700 Balance -1598.42 -760 -464.66 Intake: Intake, IV Titration 183.58 235.34 Amount Heparin Sod,Pork in 0.45% 183.58 235.34 NaCl 25,000 unit In 0.45 % NaCl 1 250ml.bag @ 12 UNITS/KG/HR 9.84 mls/hr IV .Q24H [facility] Rx#: [id number] Oral 118 540 Output: Urine 1900 1300 700 Other: Voiding Method Indwelling Catheter Indwelling Catheter Indwelling Catheter Weight 84.5 kg Results 02/01/23 11:34 02/01/23 08:19 Cardiac Enzymes 02/01/23 Range/Units 08:19 AST 32 (14-36) U/L Coagulation 02/01/23 Range/Units 08:19 APTT 38.3 H (22.0-30.0) sec CBC 02/01/23 Range/Units 11:34 WBC 13.3 H (3.8-10.6) k/uL RBC 3.03 L (3.80-5.40) m/uL Hgb 9.1 L (11.4-16.0) gm/dL Hct 28.2 L (34.0-46.0) % Plt Count 258 (150-450) k/uL Comprehensive Metabolic Panel 02/01/23 Range/Units 08:19 Sodium 136 L (137-145) mmol/L Potassium 3.6 (3.5-5.1) mmol/L Chloride 107 (98-107) mmol/L Carbon Dioxide 21 L (22-30) mmol/L BUN 27 H (7-17) mg/dL Creatinine 2.78 H (0.52-1.04) mg/dL Glucose 179 H (74-99) mg/dL Calcium 8.1 L (8.4-10.2) mg/dL AST 32 (14-36) U/L ALT 22 (4-34) U/L Alkaline Phosphatase 60 (38-126) U/L Total Protein 6.0 L (6.3-8.2) g/dL Albumin 3.0 L (3.5-5.0) g/dL Current Medications Generic Name Dose Route Start Last Admin Trade Name Freq PRN Reason Stop Dose Admin Acetaminophen 650 mg 01/28/23 11:04 Acetaminophen Tab 325 Mg Tab PO Q6HR PRN Mild Pain or Fever > 100.5 Hydrocodone Bitart/Acetaminophen 1 each 01/28/23 11:04 01/29/23 20:35 Hydrocodone/Apap 5-325mg 1 Each Tab PO 1 each Q4HR PRN Administration Moderate Pain (Scale 4 to 6) Aspirin 81 mg 01/29/23 09:00 02/01/23 09:20 Aspirin 81 Mg PO 81 mg DAILY SAPPHIRE Administration Calcium Acetate 667 mg 01/29/23 12:30 02/01/23 12:30 Calcium Acetate 667 Mg Tab PO 667 mg TID-W/MEALS SAPPHIRE Administration Dextrose/Water 25 ml 01/28/23 14:55 Dextrose 50% Syringe 50 Ml IVP PER PROTOCOL PRN Hypoglycemia Protocol Dextrose/Water 50 ml 01/28/23 14:55 Dextrose 50% Syringe 50 Ml IVP PER PROTOCOL PRN Hypoglycemia Protocol Heparin Sodium (Porcine) 0 unit 01/30/23 18:06 01/31/23 01:37 Heparin Sodium 1,000 Un/Ml (10ml Vl) IV 4,000 unit PER PROTOCOL PRN Administration Low PTT Protocol Daptomycin 500 mg/ Sodium 50 mls @ 100 mls/hr 01/28/23 12:00 02/01/23 12:30 Chloride IVPB 100 mls/hr Q48H [facility] Administration Protocol Sodium Chloride 1,000 mls @ 75 mls/hr 01/29/23 11:15 02/01/23 05:14 Saline 0.9% IV 75 mls/hr .[id number] SAPPHIRE Administration Heparin Sodium/Sodium Chloride 250 mls @ 9.84 mls/hr 01/30/23 18:15 02/01/23 12:30 25,000 unit/ Sodium Chloride IV 15 units/kg/hr .Q24H [facility] 12.3 mls/hr Administration Protocol 12 UNITS/KG/HR Diltiazem HCl 125 mg/ Sodium 125 mls @ 5 mls/hr 01/30/23 21:15 01/31/23 22:51 Chloride IV Not Given .Q24H [facility] 5 MG/HR Insulin Aspart 0 unit 01/28/23 17:30 02/01/23 12:31 Insulin Aspart (Novolog) 100 Unit/Ml Vial SQ 1 unit ACHS SAPPHIRE Administration Protocol Metoprolol Tartrate 25 mg 01/30/23 21:00 02/01/23 09:20 Metoprolol Tartrate 25 Mg Tab PO 25 mg BID SAPPHIRE Administration Miscellaneous Information 1 each 01/30/23 14:52 Potassium Replacement Protocol 1 Each Misc MISCELLANE DAILY PRN Per Protocol Protocol Naloxone HCl 0.2 mg 01/28/23 11:04 Naloxone 0.4 Mg/Ml 1 Ml Vial IV Q2M PRN Opioid Reversal Ondansetron HCl 4 mg 01/28/23 11:04 Ondansetron 4 Mg/2 Ml Vial IVP Q8HR PRN Nausea And Vomiting Intake and Output 01/31/23 02/01/23 02/01/23 22:59 06:59 14:59 Intake Total 301.58 540 235.34 Output Total 1900 1300 700 Balance -1598.42 -760 -464.66 Intake: Intake, IV Titration 183.58 235.34 Amount Heparin Sod,Pork in 0.45% 183.58 235.34 NaCl 25,000 unit In 0.45 % NaCl 1 250ml.bag @ 12 UNITS/KG/HR 9.84 mls/hr IV .Q24H [facility] Rx#: [id number] Oral 118 540 Output: Urine 1900 1300 700 Other: Voiding Method Indwelling Catheter Indwelling Catheter Indwelling Catheter Weight 84.5 kg 02/01/23 11:34 02/01/23 08:19
--- NOTE | 2023-02-01 14:26 | P.PN ---
Subjective Progress Note Date: 02/01/23 Principal diagnosis: L foot wound and osteomyelitis Patient 62-year-old medical history significant for diabetes mellitus hypertension heart failure with chronic disease patient did have a history of left fifth toe amputation September 2022 and apparently patient seem to have a proble m with a nonhealing wound on the lateral aspect of the left foot, patient also noticed to have worsening of her kidney function on outpatient labs advised to come to the hospital. On today's evaluation that is 02/01/2023, the patient continues to be afebrile, the patient is breathing comfortably on room air and no need for supplemental oxygen, the patient denies any chest pain or cough , patient denies nausea/vomiting or diarrhea , no abdominal pain, the patient denies pain to the left foot lateral border wound area. Patient did have white count is slightly up to 13.3, creatinine is down to 2.78, blood cultures MRSA, local culture mrsa Objective - Vital Signs Vital signs: Vital Signs Temp 98.3 F 02/01/23 11:15 Pulse 69 02/01/23 11:15 Resp 16 02/01/23 11:15 BP 158/79 02/01/23 11:15 Pulse Ox 98 02/01/23 11:15 FiO2 Intake & Output 01/31/23 02/01/23 02/01/23 18:59 06:59 18:59 Intake Total 781.58 540 Output Total 1900 1300 700 Balance -1118.42 -760 -700 Weight 84.5 kg Intake: Intake, IV Titration 183.58 Amount Heparin Sod,Pork in 0.45% 183.58 NaCl 25,000 unit In 0.45 % NaCl 1 250ml.bag @ 12 UNITS/KG/HR 9.84 mls/hr IV .Q24H [facility] Rx#: [id number] Oral 598 540 Output: Urine 1900 1300 700 Other: Voiding Method Indwelling Catheter Indwelling Catheter Indwelling Catheter - Exam GENERAL DESCRIPTION: Middle age female lying in bed in no distress RESPIRATORY SYSTEM: Unlabored breathing , decreased breath sounds at bases HEART: S1 S2 regular rate and rhythm ABDOMEN: Soft , no tenderness EXTREMITIES: Left foot lateral border wound is currently dressed no drainage on the dressing - Labs CBC & Chem 7: 02/01/23 11:34 02/01/23 08:19 Labs: Abnormal Lab Results - Last 24 Hours (Table) 01/31/23 01/31/23 02/01/23 Range/Units 16:23 20:10 05:56 APTT (22.0-30.0) sec Sodium (137-145) mmol/L Carbon Dioxide (22-30) mmol/L BUN (7-17) mg/dL Creatinine (0.52-1.04) mg/dL Glucose (74-99) mg/dL POC Glucose (mg/dL) 296 H 225 H 185 H (70-110) mg/dL Calcium (8.4-10.2) mg/dL Total Protein (6.3-8.2) g/dL Albumin (3.5-5.0) g/dL 02/01/23 02/01/23 02/01/23 Range/Units 08:19 08:19 11:26 APTT 38.3 H (22.0-30.0) sec Sodium 136 L (137-145) mmol/L Carbon Dioxide 21 L (22-30) mmol/L BUN 27 H (7-17) mg/dL Creatinine 2.78 H (0.52-1.04) mg/dL Glucose 179 H (74-99) mg/dL POC Glucose (mg/dL) 189 H (70-110) mg/dL Calcium 8.1 L (8.4-10.2) mg/dL Total Protein 6.0 L (6.3-8.2) g/dL Albumin 3.0 L (3.5-5.0) g/dL Microbiology - Last 24 Hours (Table) 01/28/23 09:45 Blood Culture - Preliminary Blood 01/30/23 08:13 Blood Culture - Preliminary Blood 01/28/23 10:00 Blood Culture Gram Stain - Final Blood Blood Culture - Final Methicillin resist S. aureus Assessment and Plan (1) Osteomyelitis of left foot Current Visit: Yes Status: Acute Code(s): M86.9 - OSTEOMYELITIS, UNSPECIFIED SNOMED Code(s): 1841600123425809 (2) MRSA bacteremia Current Visit: Yes Status: Acute Code(s): R78.81 - BACTEREMIA; B95.62 - METHICILLIN RESIS STAPH INFCT CAUSING DISEASES CLASSD [facility] SNOMED Code(s): 86068760214928212 Plan: 1patient with a chronic nonhealing wound to the left foot lateral border of the amputation of her left. Now with evidence of worsening osteolysis however recent x-ray last culture done on 12/31/2022 did grew MSSA as well as MRSA pending outpatient oral Cipro and Keflex therapy as the patient has worsening of her wound and bone destruction concerning for worsening osteomyelitis 2-patient with MRSA bacteremia source is likely left foot osteomyelitis 3blood culture has been repeated to document clearance of bacteremia, if the blood culture remains to be negative at 72 hour patient will be able to get a PICC line once cleared by nephrology 4patient to continue with the daptomycin will add oral Flagyl to cover for anaerobes as white slightly elevated today Dictation was produced using [employer] dictation software. please excuse any grammatical, word or spelling errors. Time with Patient: Less than 30
[2023-02-01] MEDS ORDERED: Magnesium Replacement Protocol 1 EACH MISC MISCELLANE PRN (15:04)
[2023-02-01] MEDS: MAGNESIUM SULFATE-D5W PMX 1 GM in DEXTROSE/WATER 1 100ML.BAG IVPB SCH ×4 (15:45→22:16)
[2023-02-01] MEDS: metroNIDAZOLE 500 MG TAB PO SCH ×2 (15:45→20:27)
[2023-02-01 16:45] LABS: Glucose,Whole Blood 212 mg/dL (70-110)
[2023-02-01 17:37] LABS: Gamma Globulin 0.99 d/dL (0.70-1.50)
[2023-02-01 20:06] LABS: Glucose,Whole Blood 237 mg/dL (70-110)
[2023-02-01] MEDS: APIXABAN 5 MG TAB PO SCH (20:27)
[2023-02-02] MEDS: SODIUM CHLORIDE 0.9% 1,000 ML IV SCH ×2 (06:09→10:48)
[2023-02-02 06:20] LABS: Glucose,Whole Blood 166 mg/dL (70-110)
[2023-02-02] MEDS: INSULIN ASPART (NovoLOG) 100 UNIT/ML VIAL SQ SCH ×2 (06:29→12:20)
[2023-02-02] MEDS: CALCIUM ACETATE 667 MG TAB PO SCH ×2 (06:29→12:20)
--- NOTE | 2023-02-02 07:04 | CA ---
Transthoracic Echo Report Name: Bladimir Moreno Age: 62 Gender: F : 1960 Exam Date: 02/01/2023 11:27 Exam Location: [facility] Ht (in): 68 Wt (lb): 180 Ordering Physician: Cornel Callahan MD Attending/Referring Phys: Medical Delivery Technician Diane Wood RDCS Procedure CPT: Indications: bacteremia Cardiac Hx: Technical Quality: Fair Contrast 1: Total Dose (mL): Contrast 2: Total Dose (mL): MEASUREMENTS (Male / Female) Normal Values 2D ECHO LV Diastolic Diameter PLAX 4.5 cm 4.2 - 5.9 / 3.9 - 5.3 cm LV Systolic Diameter PLAX 3.3 cm IVS Diastolic Thickness 1.1 cm 0.6 - 1.0 / 0.6 - 0.9 cm LVPW Diastolic Thickness 1.3 cm 0.6 - 1.0 / 0.6 - 0.9 cm LV Relative Wall Thickness 0.5 RV Internal Dim ED PLAX 3.6 cm LA Volume 109.7 cm??? 18 - 58 / 22 - 52 cm??? LA Volume Index 54.9 cm???/m??? 16 - 28 cm???/m??? M-MODE Aortic Root Diameter MM 3.0 cm LA Systolic Diameter MM 4.0 cm LA Ao Ratio MM 1.3 AV Cusp Separation MM 1.6 cm DOPPLER AV Peak Velocity 122.2 cm/s AV Peak Gradient 6.0 mmHg AV Mean Velocity 84.7 cm/s AV Mean Gradient 3.1 mmHg AV Velocity Time Integral 27.4 cm LVOT Peak Velocity 80.5 cm/s LVOT Peak Gradient 2.6 mmHg LVOT Velocity Time Integral 18.0 cm MV Area PHT 3.4 cm??? Mitral E Point Velocity 105.2 cm/s Mitral A Point Velocity 30.9 cm/s Mitral E to A Ratio 3.4 MV Deceleration Time 221.8 ms MV E' Velocity 2.9 cm/s Mitral E to MV E' Ratio 36.5 TR Peak Velocity 315.4 cm/s TR Peak Gradient 39.8 mmHg Right Ventricular Systolic Press 43.9 mmHg FINDINGS Left Ventricle Mildly increased left ventricular wall thickness. Left ventricular cavity size normal. Apical akinesis Left ventricular ejection fraction is estimated at 35- 40 %. Right Ventricle Mild right ventricular dilatation. Mild pulmonary hypertension. Right Atrium Normal right atrial size. Left Atrium Severely increased left atrial volume. Mildly increased left atrial area. Probable patent foramen ovale. Mitral Valve Mitral valve thickened. Moderate mitral annular calcification. Moderate mitral regurgitation. Aortic Valve No aortic valve stenosis or regurgitation.aortic valve sclerosis. Tricuspid Valve Structurally normal tricuspid valve.moderate tricuspid regurgitation. Pulmonic Valve Trace pulmonic regurgitation.pulmonic valve not well visualized. Pericardium No pericardial effusion. Aorta Normal size aortic root and proximal ascending aorta. CONCLUSIONS 1. Moderately impaired left ventricular systolic function with apical akinesis 2. Moderate mitral and tricuspid regurgitation with mild pulmonary hypertension Previewed by: Dr. Jean Carlos Brewer MD (Electronically Signed) Final Date: 02 February 2023 07:03
[2023-02-02 09:01] VITALS: RESP 16
[2023-02-02] MEDS: ASPIRIN 81 MG PO SCH (09:31)
[2023-02-02] MEDS: APIXABAN 5 MG TAB PO SCH (09:31)
[2023-02-02] MEDS: METOPROLOL TARTRATE 25 MG TAB PO SCH (09:31)
[2023-02-02] MEDS: metroNIDAZOLE 500 MG TAB PO SCH ×2 (09:31→17:07)
--- NOTE | 2023-02-02 10:13 | IR ---
PICC LINE PLACEMENT: HISTORY: Infection requiring long-term antibiotic therapy PROCEDURE: Ultrasound and fluoroscopic guidance of PICC line placement. COMPLICATIONS: None ANESTHESIA: 1. 1% Lidocaine locally. FINDINGS/TECHNIQUE: The procedure was explained to the patient. The risks, complications, benefits and alternatives were discussed and any questions were answered. Informed consent was obtained. The patient was placed supine on the fluoroscopic table and prepped and draped in the usual sterile fash ion. Utilizing a 21 gauge needle and sonographic and fluoroscopic guidance, access in the left basi lic vein was achieved and there is placement of a 0.018 guidewire. The vein is patent. A 4-F sheath was placed over the guidewire. The guidewire and dilator were removed and a 4-F. PICC line was plac ed through the sheath with the tip at the level of the SVC. The sheath was removed, the catheter was flushed and sutured into position. The patient was stable throughout the procedure and remained sta ble upon discharge from the Department of Radiology. The vein puncture was patent under ultrasound. A weber scale image was obtained to document patency of the vein punctured. All elements of the maximal barrier technique were utilized. FLUOROSCOPY TIME: DAP 0.478Gy cm2 IMPRESSION: Successful PICC line placement under ultrasound and fluoroscopic guidance.
[2023-02-02 11:23] LABS: African American GFR (CKD) 31 (>60 ml/min/1.73 sqM); Anion Gap 10 mmol/L; Blood Urea Nitrogen 19 mg/dL (7-17); Calcium 8.3 mg/dL (8.4-10.2); Carbon Dioxide 21 mmol/L (22-30); Chloride 105 mmol/L (98-107); Glucose 194 mg/dL (74-99); Non-African American GFR(CKD) 27 (>60 ml/min/1.73 sqM); Potassium 3.4 mmol/L (3.5-5.1); Sodium 136 mmol/L (137-145)
[2023-02-02 11:51] LABS: Glucose,Whole Blood 172 mg/dL (70-110)
--- NOTE | 2023-02-02 11:52 | P.PN ---
Subjective Patient is seen for follow-up for acute kidney injury. Patient was maintained on hemodialysis initially however last treatment was on 01/29/2023. Renal function has been improving with serum creatinine down to 1.9 today. Good urine output No significant complaints today. Baez catheter discontinued yesterday. Voiding well. Objective - Vital Signs Vital signs: Vital Signs Temp 98.0 F 02/02/23 08:00 Pulse 73 02/02/23 08:00 Resp 16 02/02/23 08:00 BP 161/74 02/02/23 08:00 Pulse Ox 98 02/02/23 08:00 FiO2 Intake & Output 02/01/23 02/02/23 02/02/23 18:59 06:59 18:59 Intake Total 355.34 98.4 Output Total 700 1375 Balance -344.66 -1276.6 Intake: Intake, IV Titration 235.34 98.4 Amount Heparin Sod,Pork in 0.45% 235.34 98.4 NaCl 25,000 unit In 0.45 % NaCl 1 250ml.bag @ 12 UNITS/KG/HR 9.84 mls/hr IV .Q24H [facility] Rx#: [id number] Oral 120 Output: Urine 700 1375 Other: Voiding Method Bedside Commode Bedside Commode Bedside Commode # Voids 4 - Exam Awake, comfortable, no acute distress Examination of the heart S1 and S2 Examination of the lungs bilateral breath sounds are heard Abdomen is soft nontender Examination of lower extremity shows no evidence of edema [employer] exam grossly intact - Labs CBC & Chem 7: 02/01/23 11:34 02/02/23 09:47 Labs: Abnormal Lab Results - Last 24 Hours (Table) 01/28/23 02/01/23 02/01/23 Range/Units 12:14 11:34 11:34 WBC 13.3 H (3.8-10.6) k/uL RBC 3.03 L (3.80-5.40) m/uL Hgb 9.1 L (11.4-16.0) gm/dL Hct 28.2 L (34.0-46.0) % Sodium (137-145) mmol/L Potassium (3.5-5.1) mmol/L Carbon Dioxide (22-30) mmol/L BUN (7-17) mg/dL Creatinine (0.52-1.04) mg/dL Glucose (74-99) mg/dL POC Glucose (mg/dL) (70-110) mg/dL Calcium (8.4-10.2) mg/dL Magnesium 1.2 L (1.6-2.3) mg/dL [id number] 0.53 H (0.10-0.40) d/dL 02/01/23 02/01/23 02/02/23 Range/Units 16:44 20:02 06:18 WBC (3.8-10.6) k/uL RBC (3.80-5.40) m/uL Hgb (11.4-16.0) gm/dL Hct (34.0-46.0) % Sodium (137-145) mmol/L Potassium (3.5-5.1) mmol/L Carbon Dioxide (22-30) mmol/L BUN (7-17) mg/dL Creatinine (0.52-1.04) mg/dL Glucose (74-99) mg/dL POC Glucose (mg/dL) 212 H 237 H 166 H (70-110) mg/dL Calcium (8.4-10.2) mg/dL Magnesium (1.6-2.3) mg/dL [id number] (0.10-0.40) d/dL 02/02/23 Range/Units 09:47 WBC (3.8-10.6) k/uL RBC (3.80-5.40) m/uL Hgb (11.4-16.0) gm/dL Hct (34.0-46.0) % Sodium 136 L (137-145) mmol/L Potassium 3.4 L (3.5-5.1) mmol/L Carbon Dioxide 21 L (22-30) mmol/L BUN 19 H (7-17) mg/dL Creatinine 1.95 H (0.52-1.04) mg/dL Glucose 194 H (74-99) mg/dL POC Glucose (mg/dL) (70-110) mg/dL Calcium 8.3 L (8.4-10.2) mg/dL Magnesium (1.6-2.3) mg/dL [id number]-[id number] (0.10-0.40) d/dL Microbiology - Last 24 Hours (Table) 01/31/23 07:59 Blood Culture - Preliminary Blood 01/30/23 08:13 Blood Culture - Preliminary Blood Assessment and Plan Assessment: 1. Acute kidney injury secondary to septic ATN. Worsened with the use of diuretic, HUMA inhibitor. Baseline creatinine near 0.87 from October 2022 and elevated at 9.73 this admission - status post 2 treatments of hemodialysis with last treatment on 01/29/2023. Nonoliguric. No hydronephrosis noted on kidney ultrasound. Urine eosinophils negative. Renal function is improving with good urine output. Hemodialysis on hold. Dialysis catheter has been discontinued. 2. Hyperkalemia secondary to acute kidney injury, metabolic acidosis and lisinopril. Improved postdialysis. 3. Metabolic acidosis secondary to acute kidney injury, lactic acidosis, metformin. Improved with bicarbonate drip and dialysis. 4. Benign hypertension. Controlled. 5. Left foot osteomyelitis. On IV antibiotics. Blood cultures positive for gram-positive cocci and wound culture positive for MRSA. 6. Hyperphosphatemia secondary to acute kidney injury. Trending down. On PhosLo. Plan: Replace potassium Check phosphorus level. Hopefully we can discontinue the PhosLo. DC IV fluids
[2023-02-02 12:20] VITALS: BP 142/71; PULSE 64; TEMP 98.2
[2023-02-02] MEDS: POTASSIUM CHLORIDE ER 20 MEQ TAB.ER PO SCH (12:23)
--- NOTE | 2023-02-02 13:37 | P.PN ---
Subjective Progress Note Date: 02/02/23 History of present illness: This is a 62 year old female that follows with produce associate, Dr. Gonzalez at [facility] with past history of 4 vessel CABG in September 2018, previous episode of atrial fibrillation following CABG, diabetes, hypertension, hyperlipidemia. Patient gives history that she has a wound on her foot and has had ongoing problems through the summer been on multiple antibiotics and followed by ID and neurological physiotherapist. She was found to have abnormal lab work and was sent in the hospital for further evaluation. Patient is been treated for acute kidney injury requiring dialysis. Patient was found to be in A. fib with RVR on the evening of 01 30 and converted in the morning on 01 31. She was on a heparin drip and Cardizem drip. Cardizem drip has been paused. Patient did feel palpitations during the episode of A. fib with RVR. EKG #1 sinus rhythm at 57 bpm, #2 A. fib at 158 bpm WBC 13.3, hemoglobin 9.1, platelet count 258. Sodium 136, potassium 3.6 BUN 27, creatinine 2.78. Hemoglobin A1c 7.4. Home cardiac medications: Amlodipine 2.5 mg daily, aspirin 81 mg daily, atorvastatin 40 mg at bedtime, lisinopril hydrochlorothiazide 1 daily, Lopressor 50 mg twice daily. 02/02 Patient is in a sinus rhythm, blood pressure 128/70, heart rate is in the 70s, she's been afebrile and pulse ox 97% on room air. She has been maintained on Lopressor 25 mg twice daily and eliquis. Echocardiogram revealed EF of 35-40% with moderate MR and TR and mild pulmonary hypertension. Patient seems to u nderstand the low EF and states that she is on medication to improve this. She has had a PICC line placed and is anticipating discharge home. Physical examination: Gen: This is a 62-year-old female. She is resting bed appears to be comfortable and in no acute distress. VS: reviewed HEENT: Head is atraumatic, normocephalic. Pupils equal, round. Sclerae is anicteric. LUNGS: Clear to auscultation. No wheezes or rhonchi. No intercostal retractions. HEART: Regular rate and rhythm. No murmur. ABDOMEN: Soft No tenderness. EXTREMITIES: No pedal edema. NEUROLOGICAL: Patient is awake, alert and oriented x3. Assessment: Paroxysmal atrial fibrillation with RVR, converted to sinus rhythm Acute kidney injury Hyperkalemia Metabolic acidosis Left foot osteomyelitis MRSA bacteremia Coronary artery disease status post 4 vessel CABG Hypertension Plan: Continue patient on eliquis 5 mg twice daily Continue other cardiac medications Patient is cleared for discharge from cardiology once all arrangements are completed. Patient will follow-up with her primary produce associate, Dr. Gonzalez in 1-2 weeks. Nurse practitioner note has been reviewed, I agree with documented findings and plan of care. Patient was seen and examined. Objective - Vital Signs Vital signs: Vital Signs Temp 98.2 F 02/02/23 04:00 Pulse 74 02/02/23 04:00 Resp 18 02/02/23 04:00 BP 128/70 02/02/23 04:00 Pulse Ox 97 02/02/23 04:00 FiO2 Intake & Output 02/01/23 02/02/23 02/02/23 18:59 06:59 18:59 Intake Total 355.34 98.4 Output Total 700 1375 Balance -344.66 -1276.6 Intake: Intake, IV Titration 235.34 98.4 Amount Heparin Sod,Pork in 0.45% 235.34 98.4 NaCl 25,000 unit In 0.45 % NaCl 1 250ml.bag @ 12 UNITS/KG/HR 9.84 mls/hr IV .Q24H [facility] Rx#: [id number] Oral 120 Output: Urine 700 1375 Other: Voiding Method Bedside Commode Bedside Commode # Voids 4 - Labs CBC & Chem 7: 02/01/23 11:34 02/02/23 09:47 Labs: Abnormal Lab Results - Last 24 Hours (Table) 01/28/23 02/01/23 02/01/23 Range/Units 12:14 08:19 08:19 WBC (3.8-10.6) k/uL RBC (3.80-5.40) m/uL Hgb (11.4-16.0) gm/dL Hct (34.0-46.0) % APTT 38.3 H (22.0-30.0) sec Sodium 136 L (137-145) mmol/L Carbon Dioxide 21 L (22-30) mmol/L BUN 27 H (7-17) mg/dL Creatinine 2.78 H (0.52-1.04) mg/dL Glucose 179 H (74-99) mg/dL POC Glucose (mg/dL) (70-110) mg/dL Calcium 8.1 L (8.4-10.2) mg/dL Magnesium (1.6-2.3) mg/dL Total Protein 6.0 L (6.3-8.2) g/dL Albumin 3.0 L (3.5-5.0) g/dL [id number] 0.53 H (0.10-0.40) d/dL 02/01/23 02/01/23 02/01/23 Range/Units 11:26 11:34 11:34 WBC 13.3 H (3.8-10.6) k/uL RBC 3.03 L (3.80-5.40) m/uL Hgb 9.1 L (11.4-16.0) gm/dL Hct 28.2 L (34.0-46.0) % APTT (22.0-30.0) sec Sodium (137-145) mmol/L Carbon Dioxide (22-30) mmol/L BUN (7-17) mg/dL Creatinine (0.52-1.04) mg/dL Glucose (74-99) mg/dL POC Glucose (mg/dL) 189 H (70-110) mg/dL Calcium (8.4-10.2) mg/dL Magnesium 1.2 L (1.6-2.3) mg/dL Total Protein (6.3-8.2) g/dL Albumin (3.5-5.0) g/dL [id number]-8-[id number] (0.10-0.40) d/dL 02/01/23 02/01/23 02/02/23 Range/Units 16:44 20:02 06:18 WBC (3.8-10.6) k/uL RBC (3.80-5.40) m/uL Hgb (11.4-16.0) gm/dL Hct (34.0-46.0) % APTT (22.0-30.0) sec Sodium (137-145) mmol/L Carbon Dioxide (22-30) mmol/L BUN (7-17) mg/dL Creatinine (0.52-1.04) mg/dL Glucose (74-99) mg/dL POC Glucose (mg/dL) 212 H 237 H 166 H (70-110) mg/dL Calcium (8.4-10.2) mg/dL Magnesium (1.6-2.3) mg/dL Total Protein (6.3-8.2) g/dL Albumin (3.5-5.0) g/dL Gfmjj-1-Eaymmasvm (0.10-0.40) d/dL Microbiology - Last 24 Hours (Table) 01/31/23 07:59 Blood Culture - Preliminary Blood 01/30/23 08:13 Blood Culture - Preliminary Blood
--- NOTE | 2023-02-02 14:46 | P.PN ---
Subjective Progress Note Date: 02/01/23 This is a 62-year-old female who comes in with concern for features of sepsis. She is found to have osteomyelitis of the left fifth toe amputation site. There is also infection. Patient did have MRSA in the left foot wound culture as well as MRSA in the blood. Her follow up blood culture remains negative so far. Patient is continued on IV daptomycin and ID recommending 6 weeks of antibiotic therapy on discharge. Baez catheter has been removed. Temporary dialysis catheter site removed. Creatinine down to 2.78 today. Possibly home tomorrow. Review of Systems Constitutional: Denied any fatigue denied any fever. Cardio vascular: denied any chest pain, palpitations Gastrointestinal: denied any nausea, vomiting, diarrhea Pulmonary: Denied any shortness of breath cough Neurologic denied any new focal deficits All inpatient medications were reviewed and appropriate changes in these medications as dictated in the interval history and assessment and plan. PHYSICAL EXAMINATION: GENERAL: The patient is alert and oriented x3, not in any acute distress. Well developed, well nourished. HEENT: Pupils are round and equally reacting to light. EOMI. No scleral icterus. No conjunctival pallor. Normocephalic, atraumatic. No pharyngeal erythema. No thyromegaly. CARDIOVASCULAR: S1 and S2 present. No murmurs, rubs, or gallops. PULMONARY: Chest is clear to auscultation, no wheezing or crackles. ABDOMEN: Soft, nontender, nondistended, normoactive bowel sounds. No palpable organomegaly. IDC removed. MUSCULOSKELETAL: No joint swelling or deformity. EXTREMITIES: No cyanosis, clubbing, or pedal edema. NEUROLOGICAL: Gross neurological examination did not reveal any focal deficits. SKIN: No rashes. Dressing intact to left fifth toe. Assessment Acute kidney injury d/t to ATN from sepsis requiring temporary hemodialysis, pt is recovering MRSA bacteremia source of infection left foot wound Atrial fibrillation with RVR new onset anticoagulated with eliquis Acute left foot osteomyelitis from non healing ulceration from left 5th toe amputation site Lactic acidosis Hyperphosphatemia improving. Hyperlipidemia Czd-[id number] diabetes mellitus Hypertension GI prophylaxis DVT prophylaxis Full Code Plan PICC Line in place with plans for 6 weeks of IV and PO antibiotics on discharge Continue local wound care Repeat labs in AM Possible D/C home in the next 24 hours Pt to complete voiding trial today removal of IDC. The impression and plan of care has been dictated by Yamile Maldonado, Nurse Practitioner as directed. Dr. Iva MD I have performed a history and physical examination and medical decision making of this patient, discussed the same with the dictator, and agree with the dictators assessment and plan as written, documented as a scribe. Based on total visit time, I have performed more than 50% of this visit. Objective - Vital Signs Vital signs: Vital Signs Temp 98.3 F 02/01/23 11:15 Pulse 69 02/01/23 14:20 Resp 16 02/01/23 14:20 BP 158/79 02/01/23 11:15 Pulse Ox 98 02/01/23 11:15 FiO2 Intake & Output 01/31/23 02/01/23 02/01/23 18:59 06:59 18:59 Intake Total 781.58 540 235.34 Output Total 1900 1300 700 Balance -1118.42 -760 -464.66 Weight 84.5 kg Intake: Intake, IV Titration 183.58 235.34 Amount Heparin Sod,Pork in 0.45% 183.58 235.34 NaCl 25,000 unit In 0.45 % NaCl 1 250ml.bag @ 12 UNITS/KG/HR 9.84 mls/hr IV .Q24H [facility] Rx#: [id number] Oral 598 540 Output: Urine 1900 1300 700 Other: Voiding Method Indwelling Catheter Indwelling Catheter Bedside Commode - Labs CBC & Chem 7: 02/01/23 11:34 02/02/23 09:47 Labs: Abnormal Lab Results - Last 24 Hours (Table) 01/31/23 01/31/23 02/01/23 Range/Units 16:23 20:10 05:56 WBC (3.8-10.6) k/uL RBC (3.80-5.40) m/uL Hgb (11.4-16.0) gm/dL Hct (34.0-46.0) % APTT (22.0-30.0) sec Sodium (137-145) mmol/L Carbon Dioxide (22-30) mmol/L BUN (7-17) mg/dL Creatinine (0.52-1.04) mg/dL Glucose (74-99) mg/dL POC Glucose (mg/dL) 296 H 225 H 185 H (70-110) mg/dL Calcium (8.4-10.2) mg/dL Magnesium (1.6-2.3) mg/dL Total Protein (6.3-8.2) g/dL Albumin (3.5-5.0) g/dL 02/01/23 02/01/23 02/01/23 Range/Units 08:19 08:19 11:26 WBC (3.8-10.6) k/uL RBC (3.80-5.40) m/uL Hgb (11.4-16.0) gm/dL Hct (34.0-46.0) % APTT 38.3 H (22.0-30.0) sec Sodium 136 L (137-145) mmol/L Carbon Dioxide 21 L (22-30) mmol/L BUN 27 H (7-17) mg/dL Creatinine 2.78 H (0.52-1.04) mg/dL Glucose 179 H (74-99) mg/dL POC Glucose (mg/dL) 189 H (70-110) mg/dL Calcium 8.1 L (8.4-10.2) mg/dL Magnesium (1.6-2.3) mg/dL Total Protein 6.0 L (6.3-8.2) g/dL Albumin 3.0 L (3.5-5.0) g/dL 02/01/23 02/01/23 Range/Units 11:34 11:34 WBC 13.3 H (3.8-10.6) k/uL RBC 3.03 L (3.80-5.40) m/uL Hgb 9.1 L (11.4-16.0) gm/dL Hct 28.2 L (34.0-46.0) % APTT (22.0-30.0) sec Sodium (137-145) mmol/L Carbon Dioxide (22-30) mmol/L BUN (7-17) mg/dL Creatinine (0.52-1.04) mg/dL Glucose (74-99) mg/dL POC Glucose (mg/dL) (70-110) mg/dL Calcium (8.4-10.2) mg/dL Magnesium 1.2 L (1.6-2.3) mg/dL Total Protein (6.3-8.2) g/dL Albumin (3.5-5.0) g/dL Microbiology - Last 24 Hours (Table) 01/28/23 09:45 Blood Culture - Preliminary Blood 01/30/23 08:13 Blood Culture - Preliminary Blood 01/28/23 10:00 Blood Culture Gram Stain - Final Blood Blood Culture - Final Methicillin resist S. aureus Assessment and Plan Time with Patient: Less than 30
--- NOTE | 2023-02-03 16:05 | P.DS ---
Providers Date of admission: 01/28/23 11:05 Attending physician: Cornel Callahan MD Consults: 01/28/23 10:59 Consult Physician Urgent Consulting Provider: Raul Ruano Consult Reason/Comments: Stat dialysis port placement Do you want consulting provider notified?: Yes 01/28/23 11:00 Consult Physician Urgent Consulting Provider: Gt Garcia Consult Reason/Comments: Osteomyelitis, s/p left fifth toe amputation Do you want consulting provider notified?: Yes 01/28/23 11:03 Consult Physician Urgent Consulting Provider: Matt Castro Consult Reason/Comments: SEAN Do you want consulting provider notified?: Already Contacted Consult Physician Urgent Consulting Provider: Josiah Navarro Consult Reason/Comments: Osteomyelitis left fourth and fifth toe Do you want consulting provider notified?: Yes 01/31/23 09:32 Consult Physician Routine Consulting Provider: Roshan Holguin Consult Reason/Comments: A. fib with RVR Do you want consulting provider notified?: Yes Primary care physician: [facility] Course: Final Diagnosis Acute kidney injury d/t to ATN from sepsis requiring temporary hemodialysis, pt is recovering MRSA bacteremia source of infection left foot wound Atrial fibrillation with RVR new onset anticoagulated with eliquis Acute left foot osteomyelitis from non healing ulceration from left 5th toe amputation site Lactic acidosis Hyperphosphatemia resolved and PhosLO discontinued. Hyperlipidemia Hx of CABG x 4 vessel in 2019 [id number] diabetes mellitus Hypertension GI prophylaxis DVT prophylaxis Full Code Discharge Disposition Patient is stable for discharge home. Patient has been cleared by ID with 6 weeks of IV daptomycin Q48 hours and 6 weeks of oral flagyl. Patient has PICC Line in place. Local wound care to continue to the left fifth toe amputation site and pt has an appt to see Dr. Garcia in the woundcare center Tuesday AM for continued wound care. Patient is anticoagulated with eliquis had been on this before and is expensive she is not a candidate for a discount card at this time as she has used one in the past. She states she will pay the copay and follow up with providers outpatient and may require transitioning to warfarin. She is discharged on an SGLT2. Baez catheter removed and voiding without difficulty. Close follow up recommended with construction supervisor/carpenter Dr Castro, Infectious disease Dr Navarro, Naphthalene Still Operator Dr Gonzalez, PCP Dr. Friedman. Local wound care to the left fifth toe amputation site zinc paste with puracol plus collagen 2 x 2 dressing with gauze sponge covering and kerlex than Brandon - per the wound center pt goes [facility]. Please apply dressing prior to D/C pt sees Dr Garcia at the wound center on Tuesday at 0800. Lab scripts are given for weekly CBC, BMP, CRP and Sed Rate. Hospital Course patient is 62-year-old lady with past medical history significant for hyperlipidemia, hypertension, diabetes mellitus presented to the ER for abnormal labs. Patient stated that she was all right 2 days back he started feeling s ick. Patient was feeling lethargic and tired. Patient also having nausea and vomiting afterwards. Patient recently had a left toe amputated in September and was on antibiotics for osteomyelitis. Patient went to see her ID doctor yesterday and they ordered blood work. Her blood work came back showing worsening renal functions for which her ID doctor told her to come to the ER. Initial lab work done in the ER showed WBC 14.4, hemoglobin 11.8, platelet count 43, sodium 137, potassium 6.6, BUN 103, creatinine 19.73, lactate 6.3 phosphorous 13.7. X-ray of the foot done showed osteomyelitis Centered at the fourth MTP joint There is also infection. Patient did have MRSA in the left foot wound culture as well as MRSA in the blood. Her follow up blood culture remains negative so far. Patient is continued on IV daptomycin and ID recommending 6 weeks of antibiotic therapy on discharge. Patient did require temporary hemodialysis this admission due to the elevated creatinine and clinically improved. creatinine now 1.95. Baez catheter has been removed. Temporary dialysis catheter site removed. PICC line was placed. Patient also had an echocardiogram done revealing moderately impaired LV systolic function with apical akinesis EF 35-40%, moderate Mr and TR with mild pulmonary hypertension. Cardiology was following for the a.fib RVR and did require heparin and cardizem gtt. Patient does endorse a history of low EF and is on medications for this. Heart rate is now controlled in the 70s and cardiology recommending to follow up with her primary gamb cutter Dr. Gonzalez in 1 to 2 weeks on discharge. She has no chest pain, no shortness of breath, no nausea vomiting or diarrhea. Up ambulating without difficulty. No focal deficits. Alert x 3. Lungs are clear, S1 S2 auscultated. Dressing intact to the left foot. Cleared for discharge with above recommendations. Please see medication reconciliation for a list of current medications. Thank you for allowing us to participate in the care of this patient. The impression and plan of care has been dictated by Yamile Maldonado, Nurse Practitioner as directed. Dr. Iva MD I have performed a history and physical examination and medical decision making of this patient, discussed the same with the dictator, and agree with the dictators assessment and plan as written, documented as a scribe. Based on total visit time, I have performed more than 50% of this visit. Patient Condition at Discharge: Stable Plan - Discharge Summary Discharge Rx Participant: Yes New Discharge Prescriptions: New Apixaban [Eliquis] 5 mg PO BID #180 tab Famotidine [Pepcid] 20 mg PO BID #60 tablet Acetaminophen Tab [Tylenol] 650 mg PO Q6HR PRN tab PRN Reason: Mild Pain Or Fever > 100.5 metroNIDAZOLE [Flagyl] 500 mg PO TID 42 Days #126 tab Empagliflozin [Jardiance] 10 mg PO DAILY #30 tablet Continue Aspirin 81 mg PO DAILY Vitamin B Complex 1 cap PO DAILY glipiZIDE [Glucotrol] 10 mg PO AC-BID amLODIPine [Norvasc] 2.5 mg PO DAILY Pentoxifylline [TRENtal] 400 mg PO AC-TID Metoprolol Tartrate [Lopressor] 50 mg PO BID Atorvastatin Calcium [Lipitor] 40 mg PO HS Discontinued Lisinopril-Hctz 20-25 mg [Zestoretic 20-25] 1 tab PO DAILY metFORMIN HCL 1,000 mg PO AC-BID Discharge Medication List Aspirin 81 mg PO DAILY 01/28/23 [History] Atorvastatin Calcium [Lipitor] 40 mg PO HS 01/28/23 [History] Metoprolol Tartrate [Lopressor] 50 mg PO BID 01/28/23 [History] Pentoxifylline [TRENtal] 400 mg PO AC-TID 01/28/23 [History] Vitamin B Complex 1 cap PO DAILY 01/28/23 [History] amLODIPine [Norvasc] 2.5 mg PO DAILY 01/28/23 [History] glipiZIDE [Glucotrol] 10 mg PO AC-BID 01/28/23 [History] Apixaban [Eliquis] 5 mg PO BID #180 tab 02/01/23 [Rx] Acetaminophen Tab [Tylenol] 650 mg PO Q6HR PRN tab 02/02/23 [Rx] Empagliflozin [Jardiance] 10 mg PO DAILY #30 tablet 02/02/23 [Rx] Famotidine [Pepcid] 20 mg PO BID #60 tablet 02/02/23 [Rx] metroNIDAZOLE [Flagyl] 500 mg PO TID 42 Days #126 tab 02/02/23 [Rx] Follow up Appointment(s)/Referral(s): [facility] [NON-STAFF] - Kiara Friedman DO [Primary Care Provider] - 1-2 days (office will call with appointment ) Gt Garcia DPM [STAFF PHYSICIAN] - As Needed [facility], [REFERRING] - 02/02/23 (Will deliver between 6-8PM [facility] ) [facility] [NON-STAFF] - 02/04/23 8:00 am Matt Castro DO [STAFF PHYSICIAN] - 1 Week (could not reach office, will have patient call to make appointment tomorrow) Josiah Navarro MD [STAFF PHYSICIAN] - 1 Week (no answer at office, patient will call tomorrow to make appointment) Elvin Gonzalez MD [REFERRING] - 1 Week (cannot reach office, will have patient call tomorrow to make appointment) Ambulatory/Diagnostic Orders: Basic Metabolic Panel [LAB.AMB] Location: None Selected Erythrocyte Sedimentation Rate [LAB.AMB] Location: None Selected C Reactive Protein [LAB.AMB] Location: None Selected Complete Blood Count w/diff [LAB.AMB] Time Frame: 3 Days, Location: None Selected Activity/Diet/Wound Care/Special Instructions: Need to follow up with construction supervisor/carpenter Dr Castro, Infectious disease Dr Navarro, Naphthalene Still Operator Dr Gonzalez, PCP Dr. Friedman Repeat labs in 2 to 3 days and weekly. Continue IV antibiotics with daptomycin every 48 hours for the next 6 weeks through [facility] Home infusion Keep your appointment with Dr. Garcia in the [facility] wound clinic for this Tuesday02/04/23. Local wound care to the left fifth toe amputation site zinc paste with puracol plus collagen 2 x 2 dressing with gauze sponge covering and kerlex than Brandon - per the wound center pt goes MWF. Please apply dressing prior to D/C pt sees Dr Garcia at the wound center on Tuesday at 0800. Discharge Disposition: HOME WITH HOME HEALTH SERVICES
== END 2023-02-02 17:42 | disposition home health service (06) | DRG 871 ==
LOC: EC 09:00 → 3SCARD 11:05
PROVIDERS: ADMIT Internal Medicine; ATTEND Internal Medicine
PROC: 5A1D70Z Performance of Urinary Filtration, Intermittent, Less than 6 Hours Per Day (ICD-10-PCS; 2023-01-28)
PROC: 06H033Z Insertion of Infusion Device into Inferior Vena Cava, Percutaneous Approach (ICD-10-PCS; principal; 2023-01-28 16:25)
PROC: 06PYX3Z Removal of Infusion Device from Lower Vein, External Approach (ICD-10-PCS; 2023-01-31)
PROC: 02HV33Z Insertion of Infusion Device into Superior Vena Cava, Percutaneous Approach (ICD-10-PCS; 2023-02-02)
DX: A41.02 Sepsis due to Methicillin resistant Staphylococcus aureus (principal); N17.0 Acute kidney failure with tubular necrosis; E87.20 Acidosis, unspecified; M86.172 Other acute osteomyelitis, left ankle and foot; E11.69 Type 2 diabetes mellitus with other specified complication; E11.40 Type 2 diabetes mellitus with diabetic neuropathy, unspecified; E11.621 Type 2 diabetes mellitus with foot ulcer; E78.5 Hyperlipidemia, unspecified; E83.39 Other disorders of phosphorus metabolism; E87.5 Hyperkalemia; I11.0 Hypertensive heart disease with heart failure; I25.10 Atherosclerotic heart disease of native coronary artery without angina pectoris; I27.20 Pulmonary hypertension, unspecified; I08.1 Rheumatic disorders of both mitral and tricuspid valves; I48.0 Paroxysmal atrial fibrillation; I50.9 Heart failure, unspecified; L97.529 Non-pressure chronic ulcer of other part of left foot with unspecified severity; Z79.01 Long term (current) use of anticoagulants; Z79.2 Long term (current) use of antibiotics; Z79.4 Long term (current) use of insulin; Z79.82 Long term (current) use of aspirin; Z79.84 Long term (current) use of oral hypoglycemic drugs; Z79.899 Other long term (current) drug therapy; Z89.422 Acquired absence of other left toe(s); Z95.1 Presence of aortocoronary bypass graft; Z96.60 Presence of unspecified orthopedic joint implant; Z91.040 Latex allergy status
CPT/HCPCS: 36415; 36556; 36573; 51702; 76770; 80048; 80053; 80074; 81001; 83036; 83605; 83735; 84100; 84132; 84165; 85025; 85027; 85610; 85652; 85730; 86038; 86140; 86160; 86162; 86225; 86255; 86334; 86335; 86706; 87040; 87070; 87077; 87186; 87205; 87340; 90935; 93306; 96361; 96365; 96368; 96375; 99285

== ENCOUNTER → 2023-02-25 | Outpatient (CLI) | payer MEDICARE, BC ==
--- NOTE | 2023-02-25 08:36 | XR ---
EXAMINATION TYPE: XR foot complete LT DATE OF EXAM: 02/25/2023 7:22 AM CLINICAL INDICATION:Female, 62 years old with history of osteomyelitis; [facility] COMPARISON: 01/28/2023 TECHNIQUE: XR foot complete LT examined in the AP, oblique, and lateral projections. FINDINGS/IMPRESSION: There is extended digits of the second through fourth digit with chronic changes noted involving the fourth digit. The fifth digit amputation site is relatively intact. There may be mild osseous erosion at the fourth digit near site of prior surgery/fracture which could represent osteoarthritis. There is bony growth at the site of the digit.
== END | disposition home or self-care (01) ==
LOC: RADXRMAIN 07:10
PROVIDERS: ATTEND Podiatrist
DX: M86.672 Other chronic osteomyelitis, left ankle and foot (principal)

== ENCOUNTER 2023-05-28 13:48 | Inpatient (IN) | payer MEDICARE, BC ==
--- NOTE | 2023-05-28 14:00 | ED ---
General Adult HPI - General Source: patient, RN notes reviewed Mode of arrival: ambulatory Limitations: no limitations <Mel Isaac - Last Filed: 05/28/23 14:15> <Efrain Hernández - Last Filed: 05/28/23 19:11> - General Chief complaint: Shortness of Breath Stated complaint: Td Time Seen by Provider: 05/28/23 14:00 - History of Present Illness Initial comments: Quick Note: This is a 62 year old female who presents to the emergency department for several concerns. States that she has been fighting an upper respiratory infection, and feels like this is making her atrial fibrillation flareup. Also reports shortness of breath, nausea, and leg swelling. (Mel Isaac) I have reviewed the above note. Patient does present with complaints of shortness of breath palpitations and lower extremity edema coming on for the past 3 to 4 weeks. She does have exertional dyspnea some orthopnea. No overt fevers chills or sweats though she feels like she is fighting an upper respiratory infection. No lightheadedness or dizziness. She does report she recently had her left toes amputated and has recovered from this. She was on a PICC line with IV antibiotics as well as oral antibiotics at this time. She also states that while the antibiotics gave her kidney failure for which she nee ded to dialysis treatments. No overt chest pain at this time (Efrain Hernández) - Related Data Home Medications Medication Instructions Recorded Confirmed Aspirin 81 mg PO DAILY 01/28/23 01/28/23 Atorvastatin Calcium [Lipitor] 40 mg PO HS 01/28/23 01/28/23 Metoprolol Tartrate [Lopressor] 50 mg PO BID 01/28/23 01/28/23 Pentoxifylline [TRENtal] 400 mg PO AC-TID 01/28/23 01/28/23 Vitamin B Complex 1 cap PO DAILY 01/28/23 01/28/23 amLODIPine [Norvasc] 2.5 mg PO DAILY 01/28/23 01/28/23 glipiZIDE [Glucotrol] 10 mg PO AC-BID 01/28/23 01/28/23 Previous Rx's Medication Instructions Recorded Apixaban [Eliquis] 5 mg PO BID #180 tab 02/01/23 Acetaminophen Tab [Tylenol] 650 mg PO Q6HR PRN tab 02/02/23 Empagliflozin [Jardiance] 10 mg PO DAILY #30 tablet 02/02/23 Famotidine [Pepcid] 20 mg PO BID #60 tablet 02/02/23 metroNIDAZOLE [Flagyl] 500 mg PO TID 42 Days #126 tab 02/02/23 Allergies Allergy/AdvReac Type Severity Reaction Status Date / Time adhesive tape AdvReac Rash/Hives Verified 01/28/23 17:39 latex AdvReac Rash/Hives Verified 01/28/23 17:39 Review of Systems ROS Other: All systems not noted in ROS Statement are negative. <Mel Isaac - Last Filed: 05/28/23 14:15> ROS Other: All systems not noted in ROS Statement are negative. <Efrain Hernández - Last Filed: 05/28/23 19:11> ROS Statement: Those systems with pertinent positive or pertinent negative responses have been documented in the HPI. Past Medical History Past Medical History: Coronary Artery Disease (CAD), Heart Failure, Diabetes Mellitus, Hypertension History of Any Multi-Drug Resistant Organisms: MRSA Date of last positivie culture/infection: 01/28/23 MDRO Source:: Blood &Toe Left Second Past Surgical History: Joint Replacement, Orthopedic Surgery Additional Past Surgical History / Comment(s): RIGHT FOOT STEEL RODS LEFT BABY TOE AMPUTATION Past Psychological History: No Psychological Hx Reported Smoking Status: Never smoker Past Alcohol Use History: None Reported Past Drug Use History: None Reported <Mel Isaac - Last Filed: 05/28/23 14:15> General Exam <Mel Isaac - Last Filed: 05/28/23 14:15> General appearance: alert, anxious Head exam: Present: atraumatic, normocephalic, normal inspection Eye exam: Present: normal appearance, PERRL, EOMI. Absent: scleral icterus, conjunctival injection, periorbital swelling ENT exam: Present: normal exam, mucous membranes moist Neck exam: Present: normal inspection, full ROM, other (No stridor JVD or bruits) Respiratory exam: Present: rales, decreased breath sounds. Absent: respiratory distress, wheezes, rhonchi, stridor Cardiovascular Exam: Present: tachycardia, irregular rhythm. Absent: systolic murmur, diastolic murmur, rubs, gallop, clicks GI/Abdominal exam: Present: soft, normal bowel sounds. Absent: distended, tenderness, guarding, rebound, rigid Extremities exam: Present: full ROM, normal capillary refill, other (S/p amputation left toes no definitive edema). Absent: tenderness, pedal edema, joint swelling, calf tenderness Back exam: Present: normal inspection Neurological exam: Present: alert, oriented X3, CN II-XII intact Psychiatric exam: Present: normal affect, normal mood Skin exam: Present: warm, dry, intact, normal color. Absent: rash <Efrain Hernández - Last Filed: 05/28/23 19:11> - General Exam Comments Initial Comments: Visual Physical Exam Vital signs reviewed General: Well-appearing, nontoxic, no acute distress. Head: Normocephalic, atraumatic Eyes: PERRLA, EOMI ENT: Airway patent Chest: Nonlabored breathing Skin: No visual rash, normal skin tone Neuro: Alert and oriented 3 Musculoskeletal: No gross abnormalities (Mel Isaac) This is a well-developed well-nourished awake alert oriented x 4 female (Efrain Hernández) Course <Efrain Hernández - Last Filed: 05/28/23 19:11> Vital Signs 05/28/23 05/28/23 05/28/23 14:14 14:51 15:00 Temperature 98.8 F Pulse Rate 154 H 128 H Pulse Rate [ 147 H Bilateral Signal Operator ] Respiratory 20 16 Rate Blood Pressure 111/69 97/72 O2 Sat by Pulse 100 96 Oximetry 05/28/23 05/28/23 05/28/23 15:30 16:30 17:00 Temperature Pulse Rate 133 H 103 H 92 Pulse Rate [ Bilateral Signal Operator ] Respiratory 18 18 16 Rate Blood Pressure 103/75 96/71 110/51 O2 Sat by Pulse 97 96 96 Oximetry - Reevaluation(s) Reevaluation #1: 05/28/23 17:56 The lactic acid level is elevated but there is no evidence of any infectious process at this time. No antibiotics indicated (Efrain Hernández) Reevaluation #2: 05/28/23 18:28 Evaluation the patient finds no change in her status her heart rate has improved the Cardizem will be tapered due to blood pressure concerns 05/28/23 19:10 Additional the elevated lactic acid is present no evidence of infectious process. (Efrain Hernández) Medical Decision Making <Mel Isaac - Last Filed: 05/28/23 14:15> - Lab Data Result diagrams: 05/28/23 15:16 05/28/23 15:16 <EdgarEfrain - Last Filed: 05/28/23 19:11> - Medical Decision Making I performed the QuickNote portion of this chart. Signed Mel Isaac PA-C. (Mel Isaac) I did review the quick note. I did discuss findings with the patient and family members were present. Also with Dr. Osuna and also Dr. Quezada. Patient will be admitted for inpatient evaluation and treatment A-fib RVR, CHF, elevated liver enzymes elevated lactic acid thought to be of a noninfectious origin is not as identified. BNP was 25,000 there is a reactive leukocytosis and elevated D- dimer. Was pt. sent in by a medical professional or institution (MANUEL Chairez, ELECTRIC WELL LOGGING OPERATOR, urgent care, hospital, or penitentiary...) When possible be specific @ -No Did you speak to anyone other than the patient for history (EMS, parent, family, police, friend...)? What history was obtained from this source @ -Family Did you review nursing and triage notes (agree or disagree)? Why? @ -I reviewed and agree with nursing and triage notes Were old charts reviewed (outside hosp., previous admission, EMS record, old EKG, old radiological studies, urgent care reports/EKG's, penitentiary records)? Report findings @ -Old charts were reviewed Differential Diagnosis (chest pain, altered mental status, abdominal pain women, abdominal pain men, vaginal bleeding, weakness, fever, dyspnea, syncope, headache, dizziness, GI bleed, back pain, seizure, CVA, palpatations, mental health, musculoskeletal)? @ -Atrial fibrillation, CHF EKG interpreted by me (3pts min.). @ -As above EKG interpreted by me atrial fibrillation with rapid ventricular response rate of 148 QRS ration 84 QT/QTc 302/387 low voltage evidence of left anterior fascicular block poor R wave progression noted no evidence of acute ST- T wave changes. X-rays interpreted by me (1pt min.). @ -Chest x-ray interpreted by me evidence of increased pulmonary vascular congestion CT interpreted by me (1pt min.). @ -None done U/S interpreted by me (1pt. min.). @ -None done What testing was considered but not performed or refused? (CT, X-rays, U/S, labs)? Why? @ -None What meds were considered but not given or refused? Why? @ -None Did you discuss the management of the patient with other professionals (professionals i.e. Dr., PA, ELECTRIC WELL LOGGING OPERATOR, lab, RT, psych nurse, licensed social worker, concrete vault maker, teacher, morale officer, director case management)? Give summary @ -Dr Osuna and Dr. Quezada Was smoking cessation discussed for >3mins.? @ -No Was critical care preformed (if so, how long)? @ -39 Were there social determinants of health that impacted care today? How? (Homelessness, low income, unemployed, alcoholism, drug addiction, transportation, low edu. Level, literacy, decrease access to med. care, fdc, rehab)? @ -No Was there de-escalation of care discussed even if they declined (Discuss DNR or withdrawal of care, Hospice)? DNR status @ -No What co-morbidities impacted this encounter? (DM, HTN, Smoking, COPD, CAD, Cancer, CVA, ARF, Chemo, Hep., AIDS, mental health diagnosis, sleep apnea, morbid obesity)? @ -CHF, atrial fibrillation, CAD, diabetes, hypertension Was patient admitted / discharged? Hospital course, mention meds given and route, prescriptions, significant lab abnormalities, going to OR and other pertinent info. @ -Hospital course patient was admitted for inpatient evaluation and treatment Undiagnosed new problem with uncertain prognosis? @ -No Drug Therapy requiring intensive monitoring for toxicity (Heparin, Nitro, Insulin, Cardizem)? @ -No Were any procedures done? @ -No Diagnosis/symptom? @ -But atrial fibrillation, CHF, elevated D-dimer,, peripheral edema Acute, or Chronic, or Acute on Chronic? @ -Acute Uncomplicated (without systemic symptoms) or Complicated (systemic symptoms)? @ -Complicated Side effects of treatment? @ -No Exacerbation, Progression, or Severe Exacerbation? @ -Severe exacerbation Poses a threat to life or bodily function? How? (Chest pain, [place], [place], pneumonia, PE, COPD, DKA, ARF, appy, cholecystitis, CVA, Diverticulitis, Homicidal, Suicidal, threat to staff... and all critical care pts) @ -Potential, CHF, rapid atrial fibrillation (Efrain Hernández) - Lab Data Lab Results 05/28/23 05/28/23 05/28/23 Range/Units 15:16 15:16 15:16 WBC 14.2 H (3.8-10.6) k/uL RBC 4.50 (3.80-5.40) m/uL Hgb 12.9 (11.4-16.0) gm/dL Hct 41.6 (34.0-46.0) % MCV 92.4 (80.0-100.0) fL MCH 28.6 (25.0-35.0) pg MCHC 30.9 L (31.0-37.0) g/dL RDW 17.1 H (11.5-15.5) % Plt Count 247 (150-450) k/uL MPV 9.5 Neutrophils % 79 % Lymphocytes % 15 % Monocytes % 4 % Eosinophils % 0 % Basophils % 0 % Neutrophils # 11.3 H (1.3-7.7) k/uL Lymphocytes # 2.2 (1.0-4.8) k/uL Monocytes # 0.5 (0-1.0) k/uL Eosinophils # 0.0 (0-0.7) k/uL Basophils # 0.1 (0-0.2) k/uL Hypochromasia Marked Anisocytosis Slight PT 15.9 H (10.0-12.5) sec INR 1.5 H (<1.2) APTT 23.4 (22.0-30.0) sec D-Dimer 0.86 H (<0.60) mg/L FEU Sodium 139 (137-145) mmol/L Potassium 5.1 (3.5-5.1) mmol/L Chloride 106 (98-107) mmol/L Carbon Dioxide 18 L (22-30) mmol/L Anion Gap 15 mmol/L BUN 19 H (7-17) mg/dL Creatinine 0.71 (0.52-1.04) mg/dL Est GFR (CKD-EPI)AfAm >90 (>60 ml/min/1.73 sqM) Est GFR (CKD-EPI)NonAf >90 (>60 ml/min/1.73 sqM) Glucose 291 H (74-99) mg/dL Lactic Ac Sepsis Rflx Plasma Lactic Acid Lobito (0.7-2.0) mmol/L Calcium 9.8 (8.4-10.2) mg/dL Magnesium 1.9 (1.6-2.3) mg/dL Total Bilirubin 2.5 H (0.2-1.3) mg/dL AST 429 H (14-36) U/L ALT 305 H (4-34) U/L Alkaline Phosphatase 144 H (38-126) U/L Troponin I (0.000-0.034) ng/mL NT-Pro-B Natriuret Pep 00376 pg/mL Total Protein 7.2 (6.3-8.2) g/dL Albumin 4.4 (3.5-5.0) g/dL Influenza Type A (PCR) (Not Detectd) Influenza Type B (PCR) (Not Detectd) RSV (PCR) (Not Detectd) SARS-CoV-2 (PCR) (Not Detectd) 05/28/23 05/28/23 05/28/23 Range/Units 15:16 15:16 15:16 WBC (3.8-10.6) k/uL RBC (3.80-5.40) m/uL Hgb (11.4-16.0) gm/dL Hct (34.0-46.0) % MCV (80.0-100.0) fL MCH (25.0-35.0) pg MCHC (31.0-37.0) g/dL RDW (11.5-15.5) % Plt Count (150-450) k/uL MPV Neutrophils % % Lymphocytes % % Monocytes % % Eosinophils % % Basophils % % Neutrophils # (1.3-7.7) k/uL Lymphocytes # (1.0-4.8) k/uL Monocytes # (0-1.0) k/uL Eosinophils # (0-0.7) k/uL Basophils # (0-0.2) k/uL Hypochromasia Anisocytosis PT (10.0-12.5) sec INR (<1.2) APTT (22.0-30.0) sec D-Dimer (<0.60) mg/L FEU Sodium (137-145) mmol/L Potassium (3.5-5.1) mmol/L Chloride (98-107) mmol/L Carbon Dioxide (22-30) mmol/L Anion Gap mmol/L BUN (7-17) mg/dL Creatinine (0.52-1.04) mg/dL Est GFR (CKD-EPI)AfAm (>60 ml/min/1.73 sqM) Est GFR (CKD-EPI)NonAf (>60 ml/min/1.73 sqM) Glucose (74-99) mg/dL Lactic Ac Sepsis Rflx Plasma Lactic Acid Lobito 6.8 H* (0.7-2.0) mmol/L Calcium (8.4-10.2) mg/dL Magnesium (1.6-2.3) mg/dL Total Bilirubin (0.2-1.3) mg/dL AST (14-36) U/L ALT (4-34) U/L Alkaline Phosphatase (38-126) U/L Troponin I 0.013 (0.000-0.034) ng/mL NT-Pro-B Natriuret Pep pg/mL Total Protein (6.3-8.2) g/dL Albumin (3.5-5.0) g/dL Influenza Type A (PCR) Not Detected (Not Detectd) Influenza Type B (PCR) Not Detected (Not Detectd) RSV (PCR) Not Detected (Not Detectd) SARS-CoV-2 (PCR) Not Detected (Not Detectd) 05/28/23 Range/Units 16:19 WBC (3.8-10.6) k/uL RBC (3.80-5.40) m/uL Hgb (11.4-16.0) gm/dL Hct (34.0-46.0) % MCV (80.0-100.0) fL MCH (25.0-35.0) pg MCHC (31.0-37.0) g/dL RDW (11.5-15.5) % Plt Count (150-450) k/uL MPV Neutrophils % % Lymphocytes % % Monocytes % % Eosinophils % % Basophils % % Neutrophils # (1.3-7.7) k/uL Lymphocytes # (1.0-4.8) k/uL Monocytes # (0-1.0) k/uL Eosinophils # (0-0.7) k/uL Basophils # (0-0.2) k/uL Hypochromasia Anisocytosis PT (10.0-12.5) sec INR (<1.2) APTT (22.0-30.0) sec D-Dimer (<0.60) mg/L FEU Sodium (137-145) mmol/L Potassium (3.5-5.1) mmol/L Chloride (98-107) mmol/L Carbon Dioxide (22-30) mmol/L Anion Gap mmol/L BUN (7-17) mg/dL Creatinine (0.52-1.04) mg/dL Est GFR (CKD-EPI)AfAm (>60 ml/min/1.73 sqM) Est GFR (CKD-EPI)NonAf (>60 ml/min/1.73 sqM) Glucose (74-99) mg/dL Lactic Ac Sepsis Rflx Y Plasma Lactic Acid Lobito (0.7-2.0) mmol/L Calcium (8.4-10.2) mg/dL Magnesium (1.6-2.3) mg/dL Total Bilirubin (0.2-1.3) mg/dL AST (14-36) U/L ALT (4-34) U/L Alkaline Phosphatase (38-126) U/L Troponin I (0.000-0.034) ng/mL NT-Pro-B Natriuret Pep pg/mL Total Protein (6.3-8.2) g/dL Albumin (3.5-5.0) g/dL Influenza Type A (PCR) (Not Detectd) Influenza Type B (PCR) (Not Detectd) RSV (PCR) (Not Detectd) SARS-CoV-2 (PCR) (Not Detectd) Critical Care Time Critical Care Time: Yes Total Critical Care Time: 39 <Efrain Hernández - Last Filed: 05/28/23 19:11> Disposition <Mel Isaac - Last Filed: 05/28/23 14:15> Time of Disposition: 18:00 Decision Date: 05/28/23 Decision Time: 18:00 <Efrain Hernández - Last Filed: 05/28/23 19:11> Clinical Impression: Rapid atrial fibrillation, CHF (congestive heart failure), Exertional dyspnea, Peripheral edema, Elevated lactic acid level Disposition: ADMITTED IP TO THIS HOSP Condition: Stable Referrals: Kiara Friedman DO [Primary Care Provider] - 1-2 days
[2023-05-28 15:39] LABS: Anisocytosis Slight; Basophils # (A) 0.1 k/uL (0-0.2); Basophils % (A) 0 %; Eosinophils % (A) 0 %; HCT 41.6 % (34.0-46.0); HGB 12.9 gm/dL (11.4-16.0); Hypochromasia Marked; Lymphocytes # (A) 2.2 k/uL (1.0-4.8); Lymphocytes % (A) 15 %; MCH 28.6 pg (25.0-35.0); MCHC 30.9 g/dL (31.0-37.0); MCV 92.4 fL (80.0-100.0); Mean Platelet Volume 9.5; Monocytes # (A) 0.5 k/uL (0-1.0); Monocytes % (A) 4 %; Neutrophils # (A) 11.3 k/uL (1.3-7.7); Neutrophils % (A) 79 %; Platelet Count 247 k/uL (150-450); RDW 17.1 % (11.5-15.5); WBC 14.2 k/uL (3.8-10.6)
[2023-05-28 15:49] LABS: ALT 305 U/L (4-34); AST 429 U/L (14-36); African American GFR (CKD) >90 (>60 ml/min/1.73 sqM); Albumin 4.4 g/dL (3.5-5.0); Alkaline Phosphatase 144 U/L (38-126); Anion Gap 15 mmol/L; Blood Urea Nitrogen 19 mg/dL (7-17); Calcium 9.8 mg/dL (8.4-10.2); Carbon Dioxide 18 mmol/L (22-30); Chloride 106 mmol/L (98-107); Glucose 291 mg/dL (74-99); Magnesium 1.9 mg/dL (1.6-2.3); Non-African American GFR(CKD) >90 (>60 ml/min/1.73 sqM); Potassium 5.1 mmol/L (3.5-5.1); Sodium 139 mmol/L (137-145); Total Bilirubin 2.5 mg/dL (0.2-1.3); Total Protein 7.2 g/dL (6.3-8.2)
[2023-05-28 15:57] LABS: NT-Pro-B-Type Natriuretic Pept 25000 pg/mL
[2023-05-28] MEDS: DILTIAZEM 125 MG in SODIUM CHLORIDE 0.9% 100 ML IV SCH (16:00)
[2023-05-28] MEDS: DILTIAZEM DRIP BOLUS FROM BAG 1 MG SOLN IV ONE (16:01)
[2023-05-28 16:02] LABS: INR 1.5 (<1.2); Prothrombin Time 15.9 sec (10.0-12.5)
[2023-05-28 16:03] LABS: Partial Thromboplastin Time 23.4 sec (22.0-30.0)
--- NOTE | 2023-05-28 16:51 | XR ---
EXAMINATION TYPE: XR chest 2V DATE OF EXAM: 05/28/2023 4:17 PM CLINICAL INDICATION:Female, 62 years old with history of difficulty breathing; COMPARISON: None TECHNIQUE: XR chest 2V Frontal and lateral views of the chest. FINDINGS: Lungs/Pleura: Low lung volumes are present. There is no evidence of pleural effusion, focal consolida tion, or pneumothorax. Pulmonary vascularity: Unremarkable. Heart/mediastinum: Cardiomediastinal silhouette is unremarkable. Left atrial appendage occlusion kalyani ce is present. Musculoskeletal: No acute osseous pathology. Midline sternotomy wires are noted. IMPRESSION: Low lung volumes with a generalized hazy appearance which could represent atelectasis versus pulmonar y edema correlate with serum BNP.
[2023-05-28] MEDS ORDERED: NALOXONE 0.4 MG/ML 1 ML VIAL IV PRN (19:11)
[2023-05-28] MEDS ORDERED: ACETAMINOPHEN TAB 325 MG TAB PO PRN (19:11)
--- NOTE | 2023-05-28 19:54 | P.HPIM ---
History of Present Illness H&P Date: 05/28/23 Chief Complaint: Shortness of breath/palpitations 62 year old female hypertension, hyperlipidemia, diabetes mellitus, coronary artery disease, PVD, who presents to the emergency department for several concerns. States that she has been fighting an upper respiratory infection, and feels like this is making her atrial fibrillation flareup. Also reports shortness of breath, nausea, and leg swelling. Patient does present with complaints of shortness of breath palpitations and lower extremity edema coming on for the past 3 to 4 weeks. She does have exertional dyspnea some orthopnea. No overt fevers chills or sweats though she feels like she is fighting an upper respiratory infection. No lightheadedness or dizziness. She does report she recently had her left toes amputated and has recovered from this. She was on a PICC line with IV antibiotics as well as oral antibiotics at this time. She also states that while the antibiotics gave her kidney failure for which she needed to dialysis treatments. No overt chest pain at this time Blood work completed in ED reveals a WBC of 14.2, hemoglobin of 12.9 and platelet count of 247, sodium 139, potassium 5.1, BUNs/creatinine of 19/0.71 and blood glucose of 291 EKG Reveals atrial fibrillation with rapid ventricular response rate of 148 QRS ration 84 QT/QTc 302/387 low voltage evidence of left anterior fascicular block poor R wave progression noted no evidence of acute ST-T wave changes. Chest x-ray reveals increased pulmonary vascular congestion Review of Systems REVIEW OF SYSTEMS: CONSTITUTIONAL: No fever, no malaise, no fatigue. HEENT: No recent visual problems or hearing problems. Denied any sore throat. CARDIOVASCULAR: No chest pain, orthopnea, PND, no palpitations, no syncope. PULMONARY: No shortness of breath, no cough, no hemoptysis. GASTROINTESTINAL: No diarrhea, no nausea, no vomiting, no abdominal pain. NEUROLOGICAL: No headaches, no weakness, no numbness. HEMATOLOGICAL: Denies any bleeding or petechiae. GENITOURINARY: Denies any burning micturition, frequency, or urgency. MUSCULOSKELETAL/RHEUMATOLOGICAL: Denies any joint pain, swelling, or any muscle pain. ENDOCRINE: Denies any polyuria or polydipsia. The rest of the 14-point review of systems is negative. Past Medical History Past Medical History: Coronary Artery Disease (CAD), Heart Failure, Diabetes Mellitus, Hypertension History of Any Multi-Drug Resistant Organisms: MRSA Date of last positivie culture/infection: 01/28/23 MDRO Source:: Blood &Toe Left Second Past Surgical History: Joint Replacement, Orthopedic Surgery Additional Past Surgical History / Comment(s): RIGHT FOOT STEEL RODS LEFT BABY TOE AMPUTATION Past Psychological History: No Psychological Hx Reported Smoking Status: Never smoker Past Alcohol Use History: None Reported Past Drug Use History: None Reported Medications and Allergies Home Medications Medication Instructions Recorded Confirmed Type Aspirin 81 mg PO DAILY 01/28/23 01/28/23 History Atorvastatin Calcium [Lipitor] 40 mg PO HS 01/28/23 01/28/23 History Metoprolol Tartrate [Lopressor] 50 mg PO BID 01/28/23 01/28/23 History Pentoxifylline [TRENtal] 400 mg PO AC-TID 01/28/23 01/28/23 History Vitamin B Complex 1 cap PO DAILY 01/28/23 01/28/23 History amLODIPine [Norvasc] 2.5 mg PO DAILY 01/28/23 01/28/23 History glipiZIDE [Glucotrol] 10 mg PO AC-BID 01/28/23 01/28/23 History Apixaban [Eliquis] 5 mg PO BID #180 tab 02/01/23 Rx Acetaminophen Tab [Tylenol] 650 mg PO Q6HR PRN tab 02/02/23 Rx Empagliflozin [Jardiance] 10 mg PO DAILY #30 tablet 02/02/23 Rx Famotidine [Pepcid] 20 mg PO BID #60 tablet 02/02/23 Rx metroNIDAZOLE [Flagyl] 500 mg PO TID 42 Days #126 tab 02/02/23 Rx Allergies Allergy/AdvReac Type Severity Reaction Status Date / Time adhesive tape AdvReac Rash/Hives Verified 01/28/23 17:39 latex AdvReac Rash/Hives Verified 01/28/23 17:39 Physical Exam Vitals: Vital Signs Temp Pulse Pulse Resp BP Pulse Ox 05/28/23 16:30 103 H 26 H 96/71 96 05/28/23 15:30 133 H 29 H 103/75 97 05/28/23 15:00 128 H 25 H 97/72 96 05/28/23 14:51 147 H 05/28/23 14:14 98.8 F 154 H 20 111/69 100 Intake and Output 05/28/23 05/28/23 05/28/23 06:59 14:59 22:59 Other: Weight 74.389 kg General appearance: alert, anxious Head exam: Present: atraumatic, normocephalic, normal inspection Eye exam: Present: normal appearance, PERRL, EOMI. Absent: scleral icterus, conjunctival injection, periorbital swelling ENT exam: Present: normal exam, mucous membranes moist Neck exam: Present: normal inspection, full ROM, other (No stridor JVD or bruits) Respiratory exam: Present: rales, decreased breath sounds. Absent: respiratory distress, wheezes, rhonchi, stridor Cardiovascular Exam: Present: tachycardia, irregular rhythm. Absent: systolic murmur, diastolic murmur, rubs, gallop, clicks GI/Abdominal exam: Present: soft, normal bowel sounds. Absent: distended, tenderness, guarding, rebound, rigid Extremities exam: Present: full ROM, normal capillary refill, other (S/p amputation left toes no definitive edema). Absent: tenderness, pedal edema, joint swelling, calf tenderness Neurological exam: Present: alert, oriented X3, CN II-XII intact Skin exam: Present: warm, dry, intact, normal color. Absent: rash Results CBC & Chem 7: 05/28/23 15:16 05/28/23 15:16 Labs: Abnormal Lab Results - Last 24 Hours (Table) 05/28/23 05/28/23 05/28/23 Range/Units 15:16 15:16 15:16 WBC 14.2 H (3.8-10.6) k/uL MCHC 30.9 L (31.0-37.0) g/dL RDW 17.1 H (11.5-15.5) % Neutrophils # 11.3 H (1.3-7.7) k/uL PT 15.9 H (10.0-12.5) sec INR 1.5 H (<1.2) D-Dimer 0.86 H (<0.60) mg/L FEU Carbon Dioxide 18 L (22-30) mmol/L BUN 19 H (7-17) mg/dL Glucose 291 H (74-99) mg/dL Plasma Lactic Acid Lobito (0.7-2.0) mmol/L Total Bilirubin 2.5 H (0.2-1.3) mg/dL AST 429 H (14-36) U/L ALT 305 H (4-34) U/L Alkaline Phosphatase 144 H (38-126) U/L 05/28/23 Range/Units 15:16 WBC (3.8-10.6) k/uL MCHC (31.0-37.0) g/dL RDW (11.5-15.5) % Neutrophils # (1.3-7.7) k/uL PT (10.0-12.5) sec INR (<1.2) D-Dimer (<0.60) mg/L FEU Carbon Dioxide (22-30) mmol/L BUN (7-17) mg/dL Glucose (74-99) mg/dL Plasma Lactic Acid Lobito 6.8 H* (0.7-2.0) mmol/L Total Bilirubin (0.2-1.3) mg/dL AST (14-36) U/L ALT (4-34) U/L Alkaline Phosphatase (38-126) U/L Assessment and Plan Assessment: 1. Atrial fibrillation with RVR -Patient received 1 dose of IV Cardizem bolus 10 mg in ED which slowed her heart rate down to 1 teens; currently on metoprolol 50 mg twice daily and IV Cardizem infusion at 5 mg/h -- Continue with Eliquis 5 mg twice daily for anticoagulation -Cardiology is consulted 2. Acute exacerbation CHF --Chest x-ray completed in ED reveals pulmonary vascular congestion; BNP is elevated at 25,000, troponin of 0.013 -- Patient is admitted for diuresis and further evaluation by cardiology -We will continue with Lasix 40 mg IV every 12 hours; monitor strict BEKAH's, daily weights, renal function electrolytes; low-salt and fluid restricted diet -Cardiology is consulted; appreciate recommendations 3. Leukocytosis with lactic acidosis; possibly reactive; chest x-ray is negative for acute pulmonary process; patient has completed IV antibiotic course for left toe infection; patient is status post amputation -- We will monitor CBC, CRP and procalcitonin -We will consult ID for further evaluation 4. Diabetes mellitus type 2/hyperglycemia; patient is clinically not acidotic; lactic acid is markedly elevated at 6.8 -We will order beta hydroxybutyric acid to rule out acidosis; hold off on IV antibiotics given CHF exacerbation -Hold home dose of glipizide; monitor Accu-Cheks before every meal and at bedtime with insulin sliding scale -Further recommendations pending clinical course 5. Elevated liver enzymes; abdominal exam is benign; could be related to CHF -- Total bilirubin is elevated at 2.5 with AST/ALT elevated at 429/305 -We will repeat liver enzymes; order hepatobiliary ultrasound -- Hepatitis profile 6. Hypertension; metoprolol 50 mg twice daily, Norvasc 2.5 mg daily 7. Hyperlipidemia; Lipitor 40 mg p.o. nightly 8. Peripheral vascular disease; patient remains on aspirin, statin and Trental DVT prophylaxis; SCDs/Eliquis CODE STATUS; full code
[2023-05-28 20:17] LABS: Glucose,Whole Blood 283 mg/dL (70-110)
[2023-05-28] MEDS: FUROSEMIDE 10 MG/ML 4 ML VIAL IV STA (21:05)
[2023-05-28] MEDS: FAMOTIDINE 20 MG TAB PO SCH (21:09)
[2023-05-28] MEDS: APIXABAN 5 MG TAB PO SCH (21:09)
[2023-05-28] MEDS: METOPROLOL TARTRATE 50 MG TAB PO SCH (21:09)
[2023-05-28] MEDS: ATORVASTATIN 40 MG TAB PO SCH (21:09)
[2023-05-28] MEDS: INSULIN ASPART (NovoLOG) 100 UNIT/ML VIAL SQ SCH (21:10)
[2023-05-28] MEDS: FUROSEMIDE 10 MG/ML 4 ML VIAL IV SCH (21:10)
--- NOTE | 2023-05-28 23:45 | US ---
EXAM: US Abdomen Limited CLINICAL HISTORY: ITS.REASON US Reason: Elevated liver enzymes TECHNIQUE: Real-time ultrasound of the abdomen with image documentation. COMPARISON: No relevant prior studies available. FINDINGS: Common bile duct: 3 mm common bile duct. IMPRESSION: No acute findings in the visualized abdomen.
[2023-05-29 00:16] LABS: Glucose,Whole Blood 64 mg/dL (70-110)
[2023-05-29 01:17] LABS: Glucose,Whole Blood 168 mg/dL (70-110)
[2023-05-29 03:26] LABS: Albumin 3.3 g/dL (3.5-5.0); Bilirubin, Delta 0.4 mg/dL (0.0-0.2); Bilirubin,Unconjugated 1.1 mg/dL (0.0-1.1); Total Bilirubin 1.5 mg/dL (0.2-1.3)
[2023-05-29 03:36] LABS: Anisocytosis Slight; Basophils # (A) 0.1 k/uL (0-0.2); Basophils % (A) 1 %; Eosinophils % (A) 0 %; HCT 37.3 % (34.0-46.0); HGB 11.8 gm/dL (11.4-16.0); Hypochromasia Slight; Lymphocytes # (A) 3.3 k/uL (1.0-4.8); Lymphocytes % (A) 30 %; MCH 28.4 pg (25.0-35.0); MCHC 31.6 g/dL (31.0-37.0); MCV 89.8 fL (80.0-100.0); Mean Platelet Volume 9.4; Monocytes # (A) 0.4 k/uL (0-1.0); Monocytes % (A) 4 %; Neutrophils % (A) 64 %; Platelet Count 224 k/uL (150-450); RBC 4.15 m/uL (3.80-5.40); RDW 17.5 % (11.5-15.5); WBC 10.9 k/uL (3.8-10.6)
[2023-05-29 06:06] LABS: Glucose,Whole Blood 143 mg/dL (70-110)
[2023-05-29] MEDS: amLODIPine 2.5 MG TAB PO SCH (08:34)
[2023-05-29] MEDS: ASPIRIN 81 MG PO SCH (08:34)
[2023-05-29] MEDS: glipiZIDE 10 MG TAB PO SCH (08:34)
[2023-05-29] MEDS: DAPAGLIFLOZIN PROPANEDIOL 5 MG TABLET PO SCH (08:38)
[2023-05-29] MEDS: PENTOXIFYLLINE 400 MG TABLET.ER PO SCH (08:38)
[2023-05-29] MEDS ORDERED: NON FORMULARY DRUG (Vitamin B Complex [Vitamin B Complex] 1 EACH Capsule) PO SCH (09:00)
[2023-05-29 09:42] LABS: Procalcitonin 0.14 ng/mL (0.02-0.09)
[2023-05-29 09:53] LABS: Hepatitis A Antibody IgM Nonreactive; Hepatitis B Core IgM Nonreactive; Hepatitis B Surface Antigen Nonreactive; Hepatitis C IgG Antibody Nonreactive
[2023-05-29] MEDS ORDERED: IOPAMIDOL CONTRAST (ORAL USE) VIAL PO PRN (11:11)
[2023-05-29] MEDS: PIPERACILLIN-TAZOBACTAM 3.375 GM in SODIUM CHLORIDE 0.9% 100 ML IVPB SCH (11:39)
[2023-05-29 11:43] LABS: Glucose,Whole Blood 202 mg/dL (70-110)
--- NOTE | 2023-05-29 12:34 | P.CRDCN ---
History of Present Illness Consult date: 05/29/23 Chief complaint: SOB History of present illness: This is a very pleasant 62-year-old female patient with a past medical history significant for coronary artery disease status post CABG in 2019 with unknown details and also cardiomyopathy with an echo from January 2023 showing an ejection fraction of 40% as well as hypertension and dyslipidemia and diabetes and permanent atrial fibrillation and lower extremities peripheral arterial disease status post amputation of the left metatarsal foot. The patient presented to the hospital with a week and a half history of progressive exertional dyspnea associated with orthopnea and associated with bilateral lower extremities edema with no change in the weight. No symptoms of chest pain or chest discomfort or dizziness or lightheadedness or any feeling of heart racing or fluttering or any presyncope or syncope. The patient was receiving antibiotics for osteomyelitis but since she stopped the antibiotic about a week and a half ago she noticed that she has been experiencing the symptoms of shortness of breath and lower extremities edema. I am not quite sure if the patient is physically very active. No history of congestive heart failure but she does have history of cardiomyopathy with echo from 2022 showed an EF around 40%. No significant valvular abnormalities noted. The EKG showed atrial fibrillation with controlled heart rate. NT proBNP is 25,000. Chest x-ray showed finding consistent with heart failure. For some reason the patient was not on any diuretics at home. She was diagnosed with renal failure in the past and her GFR during this admission is within normal limits. Currently she is on Lasix IV. Currently she is on Cardizem IV at 5 mg/h as well. She is on me toprolol at 50 mg p.o. twice daily. Examination is remarkable for bilateral lower extremities edema with diminished breathing sounds bilaterally and irregular rhythm. Assessment Heart failure with evidence of right and left failure Cardiomyopathy with EF around 40% Atrial fibrillation with controlled heart rate Multiple comorbid conditions including diabetes and hypertension and dyslipidemia Lower extremities peripheral arterial disease Plan Continue the current medical regimen Continue oral anticoagulation Increase the dose of metoprolol and DC Cardizem Continue Lasix IV Continue monitor the kidney function and electrolytes Follow-up with the patient Add lisinopril 2.5 mg daily to the current medical regimen Past Medical History Past Medical History: Coronary Artery Disease (CAD), Heart Failure, Diabetes Mellitus, Hypertension History of Any Multi-Drug Resistant Organisms: MRSA Date of last positivie culture/infection: 01/28/23 MDRO Source:: Blood &Toe Left Second Past Surgical History: Joint Replacement, Orthopedic Surgery Additional Past Surgical History / Comment(s): RIGHT FOOT STEEL RODS LEFT BABY TOE AMPUTATION Past Psychological History: No Psychological Hx Reported Smoking Status: Never smoker Past Alcohol Use History: None Reported Past Drug Use History: None Reported Medications and Allergies Home Medications Medication Instructions Recorded Confirmed Type Aspirin 81 mg PO DAILY 01/28/23 05/28/23 History Atorvastatin Calcium [Lipitor] 40 mg PO HS 01/28/23 05/28/23 History Pentoxifylline [TRENtal] 400 mg PO TID-W/MEALS 01/28/23 05/28/23 History amLODIPine [Norvasc] 2.5 mg PO DAILY 01/28/23 05/28/23 History glipiZIDE [Glucotrol] 10 mg PO AC-BID 01/28/23 05/28/23 History Apixaban [Eliquis] 5 mg PO BID #180 tab 02/01/23 05/28/23 Rx Famotidine [Pepcid] 20 mg PO BID #60 tablet 02/02/23 05/28/23 Rx Cholecalciferol (Vitamin D3) 50 mcg PO DAILY 05/28/23 05/28/23 History [Vitamin D3 (50 Mcg = 2000 Iu)] Dapagliflozin Propanediol [Farxiga] 10 mg PO DAILY 05/28/23 05/28/23 History Metoprolol Tartrate [Lopressor] 100 mg PO BID 05/28/23 05/28/23 History Vitamin B Complex With Vitamin C 1 tab PO DAILY 05/28/23 05/28/23 History Allergies Allergy/AdvReac Type Severity Reaction Status Date / Time adhesive tape AdvReac Rash/Hives Verified 05/28/23 20:46 latex AdvReac Rash/Hives Verified 05/28/23 20:46 Physical Exam Vitals: Vital Signs Temp Pulse Pulse Resp BP Pulse Ox 05/29/23 11:42 105 H 18 110/70 95 05/29/23 07:31 98 18 116/85 92 L 05/29/23 06:01 109 H 17 112/83 91 L 05/29/23 03:00 95 18 104/72 94 L 05/29/23 01:18 94 18 96/65 05/28/23 22:50 100 18 108/81 05/28/23 19:00 98 18 113/85 05/28/23 17:00 92 16 110/51 96 05/28/23 16:30 103 H 18 96/71 96 05/28/23 15:30 133 H 18 103/75 97 05/28/23 15:00 128 H 16 97/72 96 05/28/23 14:51 147 H 05/28/23 14:14 98.8 F 154 H 20 111/69 100 Results 05/29/23 02:41 05/28/23 15:16 Cardiac Enzymes 05/28/23 05/28/23 05/28/23 Range/Units 15:16 15:16 22:22 AST 429 H (14-36) U/L Troponin I 0.013 0.017 (0.000-0.034) ng/mL 05/29/23 05/29/23 Range/Units 00:40 02:41 AST 553 H (14-36) U/L Troponin I 0.018 (0.000-0.034) ng/mL Coagulation 05/28/23 Range/Units 15:16 PT 15.9 H (10.0-12.5) sec APTT 23.4 (22.0-30.0) sec CBC 05/28/23 05/29/23 Range/Units 15:16 02:41 WBC 14.2 H 10.9 H (3.8-10.6) k/uL RBC 4.50 4.15 (3.80-5.40) m/uL Hgb 12.9 11.8 (11.4-16.0) gm/dL Hct 41.6 37.3 (34.0-46.0) % Plt Count 247 224 (150-450) k/uL Comprehensive Metabolic Panel 05/28/23 05/29/23 Range/Units 15:16 02:41 Sodium 139 (137-145) mmol/L Potassium 5.1 (3.5-5.1) mmol/L Chloride 106 (98-107) mmol/L Carbon Dioxide 18 L (22-30) mmol/L BUN 19 H (7-17) mg/dL Creatinine 0.71 (0.52-1.04) mg/dL Glucose 291 H (74-99) mg/dL Calcium 9.8 (8.4-10.2) mg/dL Unconjugated Bilirubin 1.1 (0.0-1.1) mg/dL AST 429 H 553 H (14-36) U/L ALT 305 H 441 H (4-34) U/L Alkaline Phosphatase 144 H 114 (38-126) U/L Total Protein 7.2 6.0 L (6.3-8.2) g/dL Albumin 4.4 3.3 L (3.5-5.0) g/dL Current Medications Generic Name Dose Route Start Last Admin Trade Name Freq PRN Reason Stop Dose Admin Acetaminophen 650 mg 05/28/23 19:11 Acetaminophen Tab 325 Mg Tab PO Q6HR PRN Mild Pain or Fever > 100.5 Amlodipine Besylate 2.5 mg 05/29/23 09:00 05/29/23 08:34 Amlodipine 2.5 Mg Tab PO 2.5 mg DAILY SAPPHIRE Administration Apixaban 5 mg 05/28/23 21:00 05/29/23 08:34 Apixaban 5 Mg Tab PO 5 mg BID SAPPHIRE Administration Protocol Aspirin 81 mg 05/29/23 09:00 05/29/23 08:34 Aspirin 81 Mg PO 81 mg DAILY SAPPHIRE Administration Atorvastatin Calcium 40 mg 05/28/23 21:00 05/28/23 21:09 Atorvastatin 40 Mg Tab PO 40 mg HS SAPPHIRE Administration Dapagliflozin 5 mg 05/29/23 09:00 05/29/23 08:38 Dapagliflozin Propanediol 5 Mg Tablet PO 5 mg DAILY SAPPHIRE Administration Famotidine 20 mg 05/28/23 21:00 05/29/23 08:34 Famotidine 20 Mg Tab PO 20 mg BID SAPPHIRE Administration Furosemide 40 mg 05/28/23 21:00 05/29/23 08:33 Furosemide 10 Mg/Ml 4 Ml Vial IV 40 mg Q12HR SAPPHIRE Administration Glipizide 10 mg 05/29/23 07:30 05/29/23 08:34 Glipizide 10 Mg Tab PO 10 mg AC-BID SAPPHIRE Administration Diltiazem HCl 125 mg/ Sodium 125 mls @ 5 mls/hr 05/28/23 15:30 05/28/23 16:00 Chloride IV 5 mg/hr .Q24H SAPPHIRE 5 mls/hr Administration 5 MG/HR Piperacillin Sod/Tazobactam 100 mls @ 25 mls/hr 05/29/23 11:15 05/29/23 11:39 Sod 3.375 gm/ Sodium Chloride IVPB 25 mls/hr Q8HR SAPPHIRE Administration Protocol Insulin Aspart 0 unit 05/28/23 21:00 05/29/23 07:32 Insulin Aspart (Novolog) 100 Unit/Ml Vial SQ 06/04/23 21:01 Not Given ACHS [facility] Protocol Iopamidol 30 ml 05/29/23 11:11 Iopamidol Contrast (Oral Use) Vial PO 05/30/23 11:[address] Scan Metoprolol Tartrate 50 mg 05/28/23 21:00 05/29/23 08:23 Metoprolol Tartrate 50 Mg Tab PO Not Given BID SAPPHIRE Naloxone HCl 0.2 mg 05/28/23 19:11 Naloxone 0.4 Mg/Ml 1 Ml Vial IV Q2M PRN Opioid Reversal Pentoxifylline 400 mg 05/29/23 07:30 05/29/23 11:39 Pentoxifylline 400 Mg Tablet.Er PO 400 mg AC-TID SAPPHIRE Administration 05/29/23 02:41 05/28/23 15:16
[2023-05-29] MEDS: METOPROLOL TARTRATE 50 MG TAB PO SCH (12:46)
--- NOTE | 2023-05-29 13:59 | CT ---
EXAMINATION TYPE: CT abdomen pelvis w con CT DLP: 1016 mGycm, Automated exposure control for dose reduction was used. DATE OF EXAM: 05/29/2023 1:49 PM COMPARISON: none CLINICAL INDICATION:Female, 62 years old with history of Leukocytosis and elevated liver enzymes; Balwinder kocytosis, elevated liver enzymes TECHNIQUE: Axial CT abdomen pelvis w con;Sagittal and coronal reformats were created on a separate w orkstation. Contrast used:100 mL of Isovue 300 with IV Contrast, (none if empty) Oral contrast used: with Oral Contrast (none if empty) FINDINGS: LOWER CHEST: Small bilateral pleural effusions. The heart is mildly enlarged for size. Mitral valve a nnular calcifications. ABDOMEN LIVER: No dilated ducts, cystic structures or masses. GALLBLADDER AND BILE DUCTS: Unremarkable. PANCREAS: Unremarkable. SPLEEN: Unremarkable. ADRENAL GLANDS: Unremarkable. KIDNEYS AND URETERS: No evidence of hydronephrosis or renal calculus. The ureters are unremarkable. PELVIS BLADDER: Unremarkable REPRODUCTIVE: Unremarkable. ABDOMEN & PELVIS STOMACH AND BOWEL: No evidence of bowel obstruction. PERITONEUM/RETROPERITONEUM: No evidence of pneumoperitoneum or free fluid. VASCULATURE: No evidence of aortic aneurysm. MUSCULOSKELETAL: No acute osseous abnormalities LYMPH NODES: No gross evidence for lymphadenopathy. SOFT TISSUE/ABDOMINAL WALL: Unremarkable IMPRESSION: 1. The liver is grossly within normal limits, no mass, dilated ducts or cystic structures. 2. Cardiomegaly with small bilateral pleural effusions correlate for congestive heart failure. 3. No evidence for acute abdominal process.
--- NOTE | 2023-05-29 16:16 | P.PN ---
Subjective 62 year old female hypertension, hyperlipidemia, diabetes mellitus, coronary artery disease, PVD, who presents to the emergency department for several concerns. States that she has been fighting an upper respiratory infection, and feels like this is making her atrial fibrillation flareup. Also reports shortness of breath, nausea, and leg swelling. Patient does present with complaints of shortness of breath palpitations and lower extremity edema coming on for the past 3 to 4 weeks. She does have exertional dyspnea some orthopnea. No overt fevers chills or sweats though she feels like she is fighting an upper respiratory infection. No lightheadedness or dizziness. She does report she recently had her left toes amputated and has recovered from this. She was on a PICC line with IV antibiotics as well as oral antibiotics at this time. She also states that while the antibiotics gave her kidney failure for which she needed to dialysis treatments. No overt chest pain at this time Blood work completed in ED reveals a WBC of 14.2, hemoglobin of 12.9 and platelet count of 247, sodium 139, potassium 5.1, BUNs/creatinine of 19/0.71 and blood glucose of 291 EKG Reveals atrial fibrillation with rapid ventricular response rate of 148 QRS ration 84 QT/QTc 302/387 low voltage evidence of left anterior fascicular block poor R wave progression noted no evidence of acute ST-T wave changes. Chest x-ray reveals increased pulmonary vascular congestion Patient has been evaluated by cardiology Continue the current medical regimen; continue oral anticoagulation Increase the dose of metoprolol and DC Cardizem Continue Lasix IV Continue monitor the kidney function and electrolytes Add lisinopril 2.5 mg daily to the current medical regimen Objective - Vital Signs Vital signs: Vital Signs Temp 98.8 F 05/28/23 14:14 Pulse 105 H 05/29/23 11:42 Resp 18 05/29/23 11:42 BP 110/70 05/29/23 11:42 Pulse Ox 95 05/29/23 11:42 FiO2 Intake & Output 05/28/23 05/29/23 05/29/23 18:59 06:59 18:59 Weight 74.389 kg - Exam Head exam: Present: atraumatic, normocephalic, normal inspection Eye exam: Present: normal appearance, PERRL, EOMI. Absent: scleral icterus, conjunctival injection, periorbital swelling ENT exam: Present: normal exam, mucous membranes moist Neck exam: Present: normal inspection, full ROM, other (No stridor JVD or bruits) Respiratory exam: Present: rales, decreased breath sounds. Absent: respiratory distress, wheezes, rhonchi, stridor Cardiovascular Exam: Present: tachycardia, irregular rhythm. Absent: systolic murmur, diastolic murmur, rubs, gallop, clicks GI/Abdominal exam: Present: soft, normal bowel sounds. Absent: distended, tenderness, guarding, rebound, rigid Extremities exam: Present: full ROM, normal capillary refill, other (S/p amputation left toes no definitive edema). Absent: tenderness, pedal edema, joint swelling, calf tenderness Neurological exam: Present: alert, oriented X3, CN II-XII intact Skin exam: Present: warm, dry, intact, normal color. Absent: rash - Labs CBC & Chem 7: 05/29/23 02:41 05/28/23 15:16 Labs: Abnormal Lab Results - Last 24 Hours (Table) 05/28/23 05/28/23 05/28/23 Range/Units 15:16 15:16 15:16 WBC 14.2 H (3.8-10.6) k/uL MCHC 30.9 L (31.0-37.0) g/dL RDW 17.1 H (11.5-15.5) % Neutrophils # 11.3 H (1.3-7.7) k/uL PT 15.9 H (10.0-12.5) sec INR 1.5 H (<1.2) D-Dimer 0.86 H (<0.60) mg/L FEU Carbon Dioxide 18 L (22-30) mmol/L BUN 19 H (7-17) mg/dL Glucose 291 H (74-99) mg/dL POC Glucose (mg/dL) (70-110) mg/dL Plasma Lactic Acid Lobito (0.7-2.0) mmol/L Total Bilirubin 2.5 H (0.2-1.3) mg/dL Delta Bilirubin (0.0-0.2) mg/dL AST 429 H (14-36) U/L ALT 305 H (4-34) U/L Alkaline Phosphatase 144 H (38-126) U/L C-Reactive Protein (<1.0) mg/dL Total Protein (6.3-8.2) g/dL Albumin (3.5-5.0) g/dL Procalcitonin (0.02-0.09) ng/mL 05/28/23 05/28/23 05/28/23 Range/Units 15:16 19:07 20:13 WBC (3.8-10.6) k/uL MCHC (31.0-37.0) g/dL RDW (11.5-15.5) % Neutrophils # (1.3-7.7) k/uL PT (10.0-12.5) sec INR (<1.2) D-Dimer (<0.60) mg/L FEU Carbon Dioxide (22-30) mmol/L BUN (7-17) mg/dL Glucose (74-99) mg/dL POC Glucose (mg/dL) 283 H (70-110) mg/dL Plasma Lactic Acid Lobito 6.8 H* 3.8 H* (0.7-2.0) mmol/L Total Bilirubin (0.2-1.3) mg/dL Delta Bilirubin (0.0-0.2) mg/dL AST (14-36) U/L ALT (4-34) U/L Alkaline Phosphatase (38-126) U/L C-Reactive Protein (<1.0) mg/dL Total Protein (6.3-8.2) g/dL Albumin (3.5-5.0) g/dL Procalcitonin (0.02-0.09) ng/mL 05/28/23 05/29/23 05/29/23 Range/Units 22:28 00:15 01:16 WBC (3.8-10.6) k/uL MCHC (31.0-37.0) g/dL RDW (11.5-15.5) % Neutrophils # (1.3-7.7) k/uL PT (10.0-12.5) sec INR (<1.2) D-Dimer (<0.60) mg/L FEU Carbon Dioxide (22-30) mmol/L BUN (7-17) mg/dL Glucose (74-99) mg/dL POC Glucose (mg/dL) 64 L 168 H (70-110) mg/dL Plasma Lactic Acid Lobito 3.5 H* (0.7-2.0) mmol/L Total Bilirubin (0.2-1.3) mg/dL Delta Bilirubin (0.0-0.2) mg/dL AST (14-36) U/L ALT (4-34) U/L Alkaline Phosphatase (38-126) U/L C-Reactive Protein (<1.0) mg/dL Total Protein (6.3-8.2) g/dL Albumin (3.5-5.0) g/dL Procalcitonin (0.02-0.09) ng/mL 05/29/23 05/29/23 05/29/23 Range/Units 02:41 02:41 02:41 WBC 10.9 H (3.8-10.6) k/uL MCHC (31.0-37.0) g/dL RDW 17.5 H (11.5-15.5) % Neutrophils # (1.3-7.7) k/uL PT (10.0-12.5) sec INR (<1.2) D-Dimer (<0.60) mg/L FEU Carbon Dioxide (22-30) mmol/L BUN (7-17) mg/dL Glucose (74-99) mg/dL POC Glucose (mg/dL) (70-110) mg/dL Plasma Lactic Acid Lobito (0.7-2.0) mmol/L Total Bilirubin 1.5 H (0.2-1.3) mg/dL Delta Bilirubin 0.4 H (0.0-0.2) mg/dL AST 553 H (14-36) U/L ALT 441 H (4-34) U/L Alkaline Phosphatase (38-126) U/L C-Reactive Protein 1.0 H (<1.0) mg/dL Total Protein 6.0 L (6.3-8.2) g/dL Albumin 3.3 L (3.5-5.0) g/dL Procalcitonin 0.14 H (0.02-0.09) ng/mL 05/29/23 05/29/23 05/29/23 Range/Units 03:42 06:05 11:41 WBC (3.8-10.6) k/uL MCHC (31.0-37.0) g/dL RDW (11.5-15.5) % Neutrophils # (1.3-7.7) k/uL PT (10.0-12.5) sec INR (<1.2) D-Dimer (<0.60) mg/L FEU Carbon Dioxide (22-30) mmol/L BUN (7-17) mg/dL Glucose (74-99) mg/dL POC Glucose (mg/dL) 143 H 202 H (70-110) mg/dL Plasma Lactic Acid Lobito 3.1 H* (0.7-2.0) mmol/L Total Bilirubin (0.2-1.3) mg/dL Delta Bilirubin (0.0-0.2) mg/dL AST (14-36) U/L ALT (4-34) U/L Alkaline Phosphatase (38-126) U/L C-Reactive Protein (<1.0) mg/dL Total Protein (6.3-8.2) g/dL Albumin (3.5-5.0) g/dL Procalcitonin (0.02-0.09) ng/mL Assessment and Plan Assessment: 1. Atrial fibrillation with RVR -Patient received 1 dose of IV Cardizem bolus 10 mg in ED which slowed her heart rate down to 1 teens; currently on metoprolol 50 mg twice daily and IV Cardizem infusion at 5 mg/h -- Continue with Eliquis 5 mg twice daily for anticoagulation -Cardiology is consulted 2. Acute exacerbation CHF --Chest x-ray completed in ED reveals pulmonary vascular congestion; BNP is elevated at 25,000, troponin of 0.013 -- Patient is admitted for diuresis and further evaluation by cardiology -We will continue with Lasix 40 mg IV every 12 hours; monitor strict BEKAH's, daily weights, renal function electrolytes; low-salt and fluid restricted diet -Cardiology is consulted; appreciate recommendations 3. Leukocytosis with lactic acidosis; possibly reactive; chest x-ray is negative for acute pulmonary process; patient has completed IV antibiotic course for left toe infection; patient is status post amputation -- We will monitor CBC, CRP and procalcitonin -We will consult ID for further evaluation 4. Diabetes mellitus type 2/hyperglycemia; patient is clinically not acidotic; lactic acid is markedly elevated at 6.8 -We will order beta hydroxybutyric acid to rule out acidosis; hold off on IV antibiotics given CHF exacerbation -Hold home dose of glipizide; monitor Accu-Cheks before every meal and at bedtime with insulin sliding scale -Further recommendations pending clinical course 5. Elevated liver enzymes; abdominal exam is benign; could be related to CHF -- Total bilirubin is elevated at 2.5 with AST/ALT elevated at 429/305 -We will repeat liver enzymes; order hepatobiliary ultrasound -- Hepatitis profile 6. Hypertension; metoprolol 50 mg twice daily, Norvasc 2.5 mg daily 7. Hyperlipidemia; Lipitor 40 mg p.o. nightly 8. Peripheral vascular disease; patient remains on aspirin, statin and Trental DVT prophylaxis; SCDs/Eliquis CODE STATUS; full code
[2023-05-29 17:04] LABS: Glucose,Whole Blood 195 mg/dL (70-110)
--- NOTE | 2023-05-29 22:08 | P.CONS ---
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 patient did have osteom yelitis culture positive for MRSA for the patient has completed course of antibiotic therapy patient has been brought into the hospital yesterday as the patient was thinking she was in atrial fibrillation complaining of shortness of breath and palpitation but no chest pain no significant cough or sputum production patient did have some nausea but no vomiting no significant abdominal pain no diarrhea no burning or frequency of urine on presentation to the hospital patient was afebrile and no fever has been recorded subsequently patient was mildly tachycardic but not hypotensive or hypoxic and no need for supplemental oxygen patient did have white count of 14.2 with a left shift creatinine 0.71 lactic acid was elevated liver enzymes are elevated influenza RSV COVID testing has been negative patient did have a chest x-ray low lung volumes with generalized hazy appearance which could represent atelectasis versus pulmonary edema patient did have a liver ultrasound that was unremarkable infectious disease was consulted because of her elevated white count Past Medical History Past Medical History: Coronary Artery Disease (CAD), Heart Failure, Diabetes Mellitus, Hypertension History of Any Multi-Drug Resistant Organisms: MRSA Year Discovered:: 01/28/23 MDRO Source:: Blood &Toe Left Second Past Surgical History: Joint Replacement, Orthopedic Surgery Additional Past Surgical History / Comment(s): RIGHT FOOT STEEL RODS LEFT BABY TOE AMPUTATION Past Psychological History: No Psychological Hx Reported Smoking Status: Never smoker Past Alcohol Use History: None Reported Past Drug Use History: None Reported Medications and Allergies Home Medications Medication Instructions Recorded Confirmed Type Aspirin 81 mg PO DAILY 01/28/23 05/28/23 History Atorvastatin Calcium [Lipitor] 40 mg PO HS 01/28/23 05/28/23 History Pentoxifylline [TRENtal] 400 mg PO TID-W/MEALS 01/28/23 05/28/23 History amLODIPine [Norvasc] 2.5 mg PO DAILY 01/28/23 05/28/23 History glipiZIDE [Glucotrol] 10 mg PO AC-BID 01/28/23 05/28/23 History Apixaban [Eliquis] 5 mg PO BID #180 tab 11/07/23 03/02/24 Rx Famotidine [Pepcid] 20 mg PO BID #60 tablet 02/02/23 05/28/23 Rx Cholecalciferol (Vitamin D3) 50 mcg PO DAILY 05/28/23 05/28/23 History [Vitamin D3 (50 Mcg = 2000 Iu)] Dapagliflozin Propanediol [Farxiga] 10 mg PO DAILY 05/28/23 05/28/23 History Metoprolol Tartrate [Lopressor] 100 mg PO BID 05/28/23 05/28/23 History Vitamin B Complex With Vitamin C 1 tab PO DAILY 05/28/23 05/28/23 History Allergies Allergy/AdvReac Type Severity Reaction Status Date / Time adhesive tape AdvReac Rash/Hives Verified 05/28/23 20:46 latex AdvReac Rash/Hives Verified 05/28/23 20:46 Physical Exam Vitals: Vital Signs Temp Pulse Pulse Resp BP Pulse Ox 05/29/23 07:31 98 18 116/85 92 L 05/29/23 06:01 109 H 17 112/83 91 L 05/29/23 03:00 95 18 104/72 94 L 05/29/23 01:18 94 18 96/65 05/28/23 22:50 100 18 108/81 05/28/23 19:00 98 18 113/85 05/28/23 17:00 92 16 110/51 96 05/28/23 16:30 103 H 18 96/71 96 05/28/23 15:30 133 H 18 103/75 97 05/28/23 15:00 128 H 16 97/72 96 05/28/23 14:51 147 H 05/28/23 14:14 98.8 F 154 H 20 111/69 100 Results CBC & Chem 7: 05/29/23 02:41 05/28/23 15:16 Labs: Abnormal Lab Results - Last 24 Hours (Table) 05/28/23 05/28/23 05/28/23 Range/Units 15:16 15:16 15:16 WBC 14.2 H (3.8-10.6) k/uL MCHC 30.9 L (31.0-37.0) g/dL RDW 17.1 H (11.5-15.5) % Neutrophils # 11.3 H (1.3-7.7) k/uL PT 15.9 H (10.0-12.5) sec INR 1.5 H (<1.2) D-Dimer 0.86 H (<0.60) mg/L FEU Carbon Dioxide 18 L (22-30) mmol/L BUN 19 H (7-17) mg/dL Glucose 291 H (74-99) mg/dL POC Glucose (mg/dL) (70-110) mg/dL Plasma Lactic Acid Lobito (0.7-2.0) mmol/L Total Bilirubin 2.5 H (0.2-1.3) mg/dL Delta Bilirubin (0.0-0.2) mg/dL AST 429 H (14-36) U/L ALT 305 H (4-34) U/L Alkaline Phosphatase 144 H (38-126) U/L C-Reactive Protein (<1.0) mg/dL Total Protein (6.3-8.2) g/dL Albumin (3.5-5.0) g/dL 05/28/23 05/28/23 05/28/23 Range/Units 15:16 19:07 20:13 WBC (3.8-10.6) k/uL MCHC (31.0-37.0) g/dL RDW (11.5-15.5) % Neutrophils # (1.3-7.7) k/uL PT (10.0-12.5) sec INR (<1.2) D-Dimer (<0.60) mg/L FEU Carbon Dioxide (22-30) mmol/L BUN (7-17) mg/dL Glucose (74-99) mg/dL POC Glucose (mg/dL) 283 H (70-110) mg/dL Plasma Lactic Acid Lobito 6.8 H* 3.8 H* (0.7-2.0) mmol/L Total Bilirubin (0.2-1.3) mg/dL Delta Bilirubin (0.0-0.2) mg/dL AST (14-36) U/L ALT (4-34) U/L Alkaline Phosphatase (38-126) U/L C-Reactive Protein (<1.0) mg/dL Total Protein (6.3-8.2) g/dL Albumin (3.5-5.0) g/dL 05/28/23 05/29/23 05/29/23 Range/Units 22:28 00:15 01:16 WBC (3.8-10.6) k/uL MCHC (31.0-37.0) g/dL RDW (11.5-15.5) % Neutrophils # (1.3-7.7) k/uL PT (10.0-12.5) sec INR (<1.2) D-Dimer (<0.60) mg/L FEU Carbon Dioxide (22-30) mmol/L BUN (7-17) mg/dL Glucose (74-99) mg/dL POC Glucose (mg/dL) 64 L 168 H (70-110) mg/dL Plasma Lactic Acid Lobito 3.5 H* (0.7-2.0) mmol/L Total Bilirubin (0.2-1.3) mg/dL Delta Bilirubin (0.0-0.2) mg/dL AST (14-36) U/L ALT (4-34) U/L Alkaline Phosphatase (38-126) U/L C-Reactive Protein (<1.0) mg/dL Total Protein (6.3-8.2) g/dL Albumin (3.5-5.0) g/dL 05/29/23 05/29/23 05/29/23 Range/Units 02:41 02:41 03:42 WBC 10.9 H (3.8-10.6) k/uL MCHC (31.0-37.0) g/dL RDW 17.5 H (11.5-15.5) % Neutrophils # (1.3-7.7) k/uL PT (10.0-12.5) sec INR (<1.2) D-Dimer (<0.60) mg/L FEU Carbon Dioxide (22-30) mmol/L BUN (7-17) mg/dL Glucose (74-99) mg/dL POC Glucose (mg/dL) (70-110) mg/dL Plasma Lactic Acid Lobito 3.1 H* (0.7-2.0) mmol/L Total Bilirubin 1.5 H (0.2-1.3) mg/dL Delta Bilirubin 0.4 H (0.0-0.2) mg/dL AST 553 H (14-36) U/L ALT 441 H (4-34) U/L Alkaline Phosphatase (38-126) U/L C-Reactive Protein 1.0 H (<1.0) mg/dL Total Protein 6.0 L (6.3-8.2) g/dL Albumin 3.3 L (3.5-5.0) g/dL 05/29/23 Range/Units 06:05 WBC (3.8-10.6) k/uL MCHC (31.0-37.0) g/dL RDW (11.5-15.5) % Neutrophils # (1.3-7.7) k/uL PT (10.0-12.5) sec INR (<1.2) D-Dimer (<0.60) mg/L FEU Carbon Dioxide (22-30) mmol/L BUN (7-17) mg/dL Glucose (74-99) mg/dL POC Glucose (mg/dL) 143 H (70-110) mg/dL Plasma Lactic Acid Lobito (0.7-2.0) mmol/L Total Bilirubin (0.2-1.3) mg/dL Delta Bilirubin (0.0-0.2) mg/dL AST (14-36) U/L ALT (4-34) U/L Alkaline Phosphatase (38-126) U/L C-Reactive Protein (<1.0) mg/dL Total Protein (6.3-8.2) g/dL Albumin (3.5-5.0) g/dL Assessment and Plan Plan: 1patient presented to hospital with shortness of breath of some palpitation and this patient noticed to have elevated white count also noticed to have elevated liver enzymes keeping in mind her symptoms of nausea and elevated liver enzymes concern for possible gallbladder disease versus cholangitis 2-we will obtain blood cultures and inflammatory markers 3-empirically start the patient on Zosyn while waiting for the workup to be completed 4-check CT of abdominal pelvis with contrast for better definition of underlying pathology We will follow on clinical condition and cultures to further adjust medication if needed Thank you for this consultation we will follow the patient along with you Dictation was produced using [employer] dictation software. please excuse any grammatical, word or spelling errors. Time with Patient: Greater than 30
[2023-05-29 22:11] LABS: Glucose,Whole Blood 117 mg/dL (70-110)
[2023-05-30 05:36] LABS: Glucose,Whole Blood 72 mg/dL (70-110)
[2023-05-30 07:28] LABS: Anisocytosis Slight; Basophils # (A) 0.1 k/uL (0-0.2); Basophils % (A) 1 %; Eosinophils # (A) 0.1 k/uL (0-0.7); Eosinophils % (A) 1 %; HCT 39.7 % (34.0-46.0); HGB 12.3 gm/dL (11.4-16.0); Hypochromasia Slight; Lymphocytes # (A) 2.7 k/uL (1.0-4.8); Lymphocytes % (A) 30 %; MCH 27.5 pg (25.0-35.0); MCHC 30.9 g/dL (31.0-37.0); MCV 89.2 fL (80.0-100.0); Mean Platelet Volume 8.9; Monocytes # (A) 0.3 k/uL (0-1.0); Monocytes % (A) 4 %; Neutrophils # (A) 5.7 k/uL (1.3-7.7); Neutrophils % (A) 63 %; Platelet Count 180 k/uL (150-450); RBC 4.45 m/uL (3.80-5.40); RDW 17.9 % (11.5-15.5); WBC 9.1 k/uL (3.8-10.6)
[2023-05-30 10:00] LABS: African American GFR (CKD) >90 (>60 ml/min/1.73 sqM); Anion Gap 6 mmol/L; Blood Urea Nitrogen 15 mg/dL (7-17); Calcium 8.4 mg/dL (8.4-10.2); Carbon Dioxide 31 mmol/L (22-30); Chloride 102 mmol/L (98-107); Glucose 53 mg/dL (74-99); Non-African American GFR(CKD) >90 (>60 ml/min/1.73 sqM); Potassium 3.3 mmol/L (3.5-5.1); Sodium 139 mmol/L (137-145)
[2023-05-30 11:24] LABS: Glucose,Whole Blood 143 mg/dL (70-110)
--- NOTE | 2023-05-30 13:41 | P.PN ---
Subjective HISTORY OF PRESENT ILLNESS: This is a very pleasant 62-year-old female patient with a past medical history significant for coronary artery disease status post CABG in 2019 with unknown details and also cardiomyopathy with an echo from January 2023 showing an ejection fraction of 40% as well as hypertension and dyslipidemia and diabetes and permanent atrial fibrillation and lower extremities peripheral arterial disease status post amputation of the left metatarsal foot. The patient presented to the hospital with a week and a half history of progressive exertional dyspnea associated with orthopnea and associated with bilateral lower extremities edema with no change in the weight. No symptoms of chest pain or chest discomfort or dizziness or lightheadedness or any feeling of heart racing or fluttering or any presyncope or syncope. The patient was receiving antibiotics for osteomyelitis but since she stopped the antibiotic about a week and a half ago she noticed that she has been experiencing the symptoms of shortness of breath and lower extremities edema. I am not quite sure if the patient is physically very active. No history of congestive heart failure but she does have history of cardiomyopathy with echo from 2022 showed an EF around 40%. No significant valvular abnormalities noted. The EKG showed atrial fibrillation with controlled heart rate. NT proBNP is 25,000. Chest x-ray showed finding consistent with heart failure. For some reason the patient was not on any diuretics at home. She was diagnosed with renal failure in the past and her GFR during this admission is within normal limits. Currently she is on Lasix IV. Currently she is on Cardizem IV at 5 mg/h as well. She is on metoprolol at 50 mg p.o. twice daily. Examination is remarkable for bilateral lower extremities edema with diminished breathing sounds bilaterally and irregular rhythm. 05/30/2023 Patient examined this morning at the bedside. Patient currently denies chest pain or pressure. She reports improvement in her shortness of breath and also with her lower extremity edema. She remains on IV diuretics. Telemetry reveals atrial fibrillation with a heart rate around [id number]. Patient's blood pressures have been on the lower side. Blood pressure this morning 96/56. She did receive all her morning cardiac medications. Repeat blood pressure 82/65. PHYSICAL EXAM: VITAL SIGNS: Reviewed. GENERAL: Well-developed in no acute distress. NECK: Supple. No JVD or thyromegaly LUNGS: Respirations even and unlabored. Lungs essentially clear to auscultation bilaterally. HEART: Irregular rate and rhythm. S1 and S2 heard. EXTREMITIES: Normal range of motion. No clubbing or cyanosis. Peripheral pulses intact. Trace bilateral lower extremity edema ASSESSMENT: Shortness of breath Acute heart failure with reduced EF, 40% Leukocytosis New onset atrial fibrillation with RVR Coronary artery disease with previous CABG, 2019 Ischemic cardiomyopathy Hypertension Hyperlipidemia Diabetes PLAN: Discontinue amlodipine Place parameters on lisinopril to hold for systolic blood pressure less than 90 Continue current dose of metoprolol Add oral amiodarone 400 mg twice a day for optimal heart rate control Continue telemetry monitoring Discontinue IV diuretics. Begin torsemide 20mg starting tomorrow morning Daily weights, accurate intake and output, and monitoring of kidney function Further recommendations pending patient course Nurse practitioner note has been reviewed by physician. Signing provider agrees with the documented findings, assessment, and plan of care documented by CLIENT RENEWAL SPECIALIST as a scribe. Objective - Vital Signs Vital signs: Vital Signs Temp 97.6 F 05/30/23 12:00 Pulse 118 H 05/30/23 12:00 Resp 18 05/30/23 12:00 BP 82/65 05/30/23 12:00 Pulse Ox 97 05/30/23 12:00 FiO2 Intake & Output 05/29/23 05/30/23 05/30/23 18:59 06:59 18:59 Intake Total 420 Output Total 1800 600 Balance -1800 -180 Weight 76.5 kg Intake: Oral 420 Output: Urine 1800 600 Other: Voiding Method External Catheter External Catheter - Labs CBC & Chem 7: 05/30/23 06:37 05/30/23 06:37 Labs: Abnormal Lab Results - Last 24 Hours (Table) 05/29/23 05/29/23 05/30/23 Range/Units 17:01 22:09 06:37 MCHC 30.9 L (31.0-37.0) g/dL RDW 17.9 H (11.5-15.5) % Potassium (3.5-5.1) mmol/L Carbon Dioxide (22-30) mmol/L Glucose (74-99) mg/dL POC Glucose (mg/dL) 195 H 117 H (70-110) mg/dL 05/30/23 05/30/23 Range/Units 06:37 11:19 MCHC (31.0-37.0) g/dL RDW (11.5-15.5) % Potassium 3.3 L (3.5-5.1) mmol/L Carbon Dioxide 31 H (22-30) mmol/L Glucose 53 L (74-99) mg/dL POC Glucose (mg/dL) 143 H (70-110) mg/dL
--- NOTE | 2023-05-30 15:24 | XR ---
EXAMINATION TYPE: XR chest 1V portable DATE OF EXAM: 05/30/2023 Comparison: 05/28/2023 Clinical History: 62-year-old female CHF Findings: Median sternotomy wires are present with post-CABG clips. Heart upper limits of normal in size. Mild hyperinflation may relate to depth of inspiration versus underlying emphysema. No consolidation or pl eural effusion. Impression: Borderline heart size. Post CABG changes. No acute process seen.
[2023-05-30] MEDS: AMIODARONE 200 MG TAB PO SCH (15:41)
[2023-05-30 16:33] LABS: Glucose,Whole Blood 240 mg/dL (70-110)
[2023-05-30] MEDS ORDERED: Potassium Replacement Protocol 1 EACH MISC MISCELLANE PRN (19:13)
[2023-05-30 20:13] LABS: Glucose,Whole Blood 155 mg/dL (70-110)
[2023-05-31 06:06] LABS: Glucose,Whole Blood 95 mg/dL (70-110)
--- NOTE | 2023-05-31 08:02 | PN ---
PROGRESS NOTE DATE OF SERVICE: 05/30/2023 SUBJECTIVE: This is a 62-year-old woman who was admitted with atrial ablation, fast ventricular rate, is being closely monitored at this time. Abdominal pelvis CAT scan showed cardiomegaly and pleural effusions. Chest x-ray was reviewed. PAST MEDICAL HISTORY: Reviewed. REVIEW OF SYSTEMS: Fourteen-point review is negative except as mentioned. CURRENT MEDICATIONS: Reviewed include Eliquis. Dose and rest of medications are reviewed. PHYSICAL EXAMINATION: VITAL SIGNS: Pulse is 113, blood pressure 91/66, respirations 18. CHEST: Few scattered rhonchi. ABDOMEN: Soft, nontender. NERVOUS SYSTEM: Nonfocal. LABORATORY DATA: Potassium 3.2. Rest of the labs are noted. 2D echo assessment last year, shows moderately impaired LV function. ASSESSMENT: 1. Atrial ablation with rapid ventricular rate. 2. Congestive heart failure exacerbation, acute on chronic systolic dysfunction. 3. Leukocytosis. 4. Diabetes type 2. 5. Multiple medical issues. RECOMMENDATIONS: I recommend to continue current medications, continue symptomatic treatment. Otherwise, I would also use small dose of diuretics and continue rest of medications. Increase ambulation. The patient was also being started on broad spectrum IV antibiotics by Dr. Navarro empirically for possible cholangitis versus gallbladder disease. We will continue to monitor. See orders for details. Further recommendations to follow. MMODL / IJN: [id number] /
[2023-05-31] MEDS: TORSEMIDE 20 MG TAB PO SCH (08:16)
[2023-05-31 11:36] LABS: Glucose,Whole Blood 163 mg/dL (70-110)
[2023-05-31] MEDS: METOPROLOL TARTRATE 25 MG TAB PO SCH (12:00)
--- NOTE | 2023-05-31 12:12 | P.PN ---
Subjective HISTORY OF PRESENT ILLNESS: This is a very pleasant 62-year-old female patient with a past medical history significant for coronary artery disease status post CABG in 2019 with unknown details and also cardiomyopathy with an echo from January 2023 showing an ejection fraction of 40% as well as hypertension and dyslipidemia and diabetes and permanent atrial fibrillation and lower extremities peripheral arterial disease status post amputation of the left metatarsal foot. The patient presented to the hospital with a week and a half history of progressive exertional dyspnea associated with orthopnea and associated with bilateral lower extremities edema with no change in the weight. No symptoms of chest pain or chest discomfort or dizziness or lightheadedness or any feeling of heart racing or fluttering or any presyncope or syncope. The patient was receiving antibiotics for osteomyelitis but since she stopped the antibiotic about a week and a half ago she noticed that she has been experiencing the symptoms of shortness of breath and lower extremities edema. I am not quite sure if the patient is physically very active. No history of congestive heart failure but she does have history of cardiomyopathy with echo from 2022 showed an EF around 40%. No significant valvular abnormalities noted. The EKG showed atrial fibrillation with controlled heart rate. NT proBNP is 25,000. Chest x-ray showed finding consistent with heart failure. For some reason the patient was not on any diuretics at home. She was diagnosed with renal failure in the past and her GFR during this admission is within normal limits. Currently she is on Lasix IV. Currently she is on Cardizem IV at 5 mg/h as well. She is on metoprolol at 50 mg p.o. twice daily. Examination is remarkable for bilateral lower extremities edema with diminished breathing sounds bilaterally and irregular rhythm. 05/30/2023 Patient examined this morning at the bedside. Patient currently denies chest pain or pressure. She reports improvement in her shortness of breath and also with her lower extremity edema. She remains on IV diuretics. Telemetry reveals atrial fibrillation with a heart rate around [id number]. Patient's blood pressures have been on the lower side. Blood pressure this morning 96/56. She did receive all her morning cardiac medications. Repeat blood pressure 82/65. 05/31/2023 Patient examined this morning at the bedside. Patient denies chest pain or pressure. She denies shortness of breath. Patient reports mild dizziness with ambulation. Patient's blood pressures have been on the lower side. Her amlodipine was discontinued yesterday and parameters were placed on her lisinopril. Telemetry reveals atrial fibrillation with a heart rate around 100. Patient's blood pressure remains low this morning with a systolic in the 80s. Patient states that she sees Dr. Gonzalez out of [facility]. She states that she has had atrial fibrillation since 2019. She is unsure of how often she goes in and out of atrial fibrillation. She does report that she was scheduled to have an event monitor placed at his office to assess for A-fib burden. PHYSICAL EXAM: VITAL SIGNS: Reviewed. GENERAL: Well-developed in no acute distress. NECK: Supple. No JVD or thyromegaly LUNGS: Respirations even and unlabored. Lungs essentially clear to auscultation bilaterally. HEART: Irregular rate and rhythm. S1 and S2 heard. EXTREMITIES: Normal range of motion. No clubbing or cyanosis. Peripheral pulses intact. Trace bilateral lower extremity edema ASSESSMENT: Shortness of breath Acute heart failure with reduced EF, 40% Leukocytosis Atrial fibrillation with RVR, paroxysmal versus persistent, not new onset per patient Hypotension Coronary artery disease with previous CABG, 2019 Ischemic cardiomyopathy Hypertension Hyperlipidemia Diabetes PLAN: Discontinue lisinopril secondary to continued hypotension Decrease metoprolol to 25 mg twice a day Continue current dose of amiodarone Continue anticoagulation with Eliquis Recommend JUANY and cardioversion. Patient is agreeable. This will be scheduled tomorrow with Dr. Quezada N.p.o. at midnight Patient to follow-up postdischarge with her primary junior qa analyst, Dr. Gonzalez Nurse practitioner note has been reviewed by physician. Signing provider agrees with the documented findings, assessment, and plan of care documented by ADMINISTRATIVE SUPERVISOR as a scribe. Objective - Vital Signs Vital signs: Vital Signs Temp 97.3 F L 05/31/23 04:00 Pulse 97 05/31/23 12:00 Resp 16 05/31/23 12:00 BP 105/75 05/31/23 12:00 Pulse Ox 100 05/31/23 12:00 FiO2 Intake & Output 05/30/23 05/31/23 05/31/23 18:59 06:59 18:59 Intake Total 600 360 Output Total 1250 Balance -650 360 Intake: Oral 600 360 Output: Urine 1250 Other: Voiding Method External Catheter External Catheter External Catheter # Voids 2 # Bowel Movements 1 - Labs CBC & Chem 7: 05/30/23 06:37 05/30/23 06:37 Labs: Abnormal Lab Results - Last 24 Hours (Table) 05/30/23 05/30/23 05/31/23 Range/Units 16:29 20:12 11:33 POC Glucose (mg/dL) 240 H 155 H 163 H (70-110) mg/dL
--- NOTE | 2023-05-31 13:21 | P.PN ---
Subjective Progress Note Date: 05/30/23 Principal diagnosis: Reason for follow-up is leukocytosis Patient is a 62-year-old female with a past medical history significant for diabetes mellitus hypertension heart failure with coronary disease in this patient who did have history of diabetic foot infection requi ring transmetatarsal amputation of the left foot patient did have osteomyelitis for the patient has completed her antibiotic therapy presenting to the hospital with palpitation shortness of breath also noticed to have elevated white count and elevated liver enzymes CT abdominal pelvis did not show any acute changes. On today's evaluation that is 05/30/2023, Patient is afebrile patient is currently on room air and denies having any shortness of breath, the patient denies any chest pain or cough, the patient denies any nausea vomiting did not have any abdominal pain and no diarrhea Patient white count normalized to 9.1, creatinine 0.[address] abdominal pelvis cardiomegaly with bilateral effusion no acute process, procalcitonin 0.14 Objective - Vital Signs Vital signs: Vital Signs Temp 97.4 F L 05/30/23 08:00 Pulse 109 H 05/30/23 08:00 Resp 18 05/30/23 08:00 BP 96/56 05/30/23 08:00 Pulse Ox 97 05/30/23 08:00 FiO2 Intake & Output 05/29/23 05/30/23 05/30/23 18:59 06:59 18:59 Intake Total 240 Output Total 1800 600 Balance -1800 -360 Weight 76.5 kg Intake: Oral 240 Output: Urine 1800 600 Other: Voiding Method External Catheter External Catheter - Exam GENERAL DESCRIPTION: Middle-age female lying in bed in no distress RESPIRATORY SYSTEM: Unlabored breathing , decreased breath sounds at bases HEART: S1 S2 regular rate and rhythm , ABDOMEN: Soft , no tenderness EXTREMITIES: No edema feet - Labs CBC & Chem 7: 05/30/23 06:37 05/30/23 06:37 Labs: Abnormal Lab Results - Last 24 Hours (Table) 05/29/23 05/29/23 05/30/23 Range/Units 17:01 22:09 06:37 MCHC 30.9 L (31.0-37.0) g/dL RDW 17.9 H (11.5-15.5) % Potassium (3.5-5.1) mmol/L Carbon Dioxide (22-30) mmol/L Glucose (74-99) mg/dL POC Glucose (mg/dL) 195 H 117 H (70-110) mg/dL 05/30/23 05/30/23 Range/Units 06:37 11:19 MCHC (31.0-37.0) g/dL RDW (11.5-15.5) % Potassium 3.3 L (3.5-5.1) mmol/L Carbon Dioxide 31 H (22-30) mmol/L Glucose 53 L (74-99) mg/dL POC Glucose (mg/dL) 143 H (70-110) mg/dL Assessment and Plan (1) Leukocytosis Current Visit: Yes Status: Acute Code(s): D72.829 - ELEVATED WHITE BLOOD CELL COUNT, UNSPECIFIED SNOMED Code(s): 273736923 Plan: 1patient presented to hospital with shortness of breath of some palpitation and this patient noticed to have elevated white count also noticed to have elevated liver enzymes keeping in mind her symptoms of nausea and elevated liver enzymes concern for possible gallbladder disease versus cholangitis 2-patient white count has normalized, CT abdominal pelvis did not show acute process 3-patient to continue Zosyn while waiting for the workup to be completed Dictation was produced using [employer] dictation software. please excuse any grammatical, word or spelling errors. Time with Patient: Less than 30
--- NOTE | 2023-05-31 13:22 | P.PN ---
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 On today's evaluation that is 05/31/2023,the patient denies any fever or any chills, patient is breathing comfortably on room air, the patient denies chest pain shortness of breath and no significant cough, patient denies abdominal pain, no nausea vomiting or diarrhea. No CBC was done today white count normal as of yesterday chest x-ray yesterday did not show acute process Objective - Vital Signs Vital signs: Vital Signs Temp 97.3 F L 05/31/23 04:00 Pulse 97 05/31/23 12:00 Resp 16 05/31/23 12:00 BP 105/75 05/31/23 12:00 Pulse Ox 96 05/31/23 13:02 FiO2 Intake & Output 05/30/23 05/31/23 05/31/23 18:59 06:59 18:59 Intake Total 600 360 Output Total 1250 Balance -650 360 Intake: Oral 600 360 Output: Urine 1250 Other: Voiding Method External Catheter External Catheter External Catheter # Voids 2 # Bowel Movements 1 - Exam GENERAL DESCRIPTION: Middle-age female lying in bed in no distress RESPIRATORY SYSTEM: Unlabored breathing , decreased breath sounds at bases HEART: S1 S2 regular rate and rhythm , ABDOMEN: Soft , no tenderness EXTREMITIES: No edema feet - Labs CBC & Chem 7: 05/30/23 06:37 05/30/23 06:37 Labs: Abnormal Lab Results - Last 24 Hours (Table) 05/30/23 05/30/23 05/31/23 Range/Units 16:29 20:12 11:33 POC Glucose (mg/dL) 240 H 155 H 163 H (70-110) mg/dL Assessment and Plan (1) Leukocytosis Current Visit: Yes Status: Acute Code(s): D72.829 - ELEVATED WHITE BLOOD CELL COUNT, UNSPECIFIED SNOMED Code(s): 904889956 Plan: 1patient presented to hospital with shortness of breath of some palpitation and this patient noticed to have elevated white count also noticed to have elevated liver enzymes keeping in mind her symptoms of nausea and elevated liver enzymes concern for possible gallbladder disease versus cholangitis 2-patient did have resolution of her leukocytosis questionable reactive as workup has been negative for infectious etiology including negative CT abdominal pelvis and chest x-ray 3-we will discontinue Zosyn and monitor the patient closely off antibiotic Dictation was produced using y prime dictation software. please excuse any grammatical, word or spelling errors. Time with Patient: Less than 30
[2023-05-31 14:43] LABS: Anisocytosis Slight; Basophils # (A) 0.1 k/uL (0-0.2); Basophils % (A) 1 %; Eosinophils # (A) 0.1 k/uL (0-0.7); Eosinophils % (A) 2 %; HCT 39.1 % (34.0-46.0); HGB 12.4 gm/dL (11.4-16.0); Hypochromasia Moderate; Lymphocytes # (A) 1.6 k/uL (1.0-4.8); Lymphocytes % (A) 21 %; MCH 28.7 pg (25.0-35.0); MCHC 31.6 g/dL (31.0-37.0); MCV 90.6 fL (80.0-100.0); Mean Platelet Volume 8.6; Monocytes # (A) 0.4 k/uL (0-1.0); Monocytes % (A) 5 %; Neutrophils # (A) 5.3 k/uL (1.3-7.7); Neutrophils % (A) 70 %; Platelet Count 221 k/uL (150-450); RBC 4.31 m/uL (3.80-5.40); RDW 17.7 % (11.5-15.5); WBC 7.7 k/uL (3.8-10.6)
[2023-05-31 14:55] LABS: ALT 249 U/L (4-34); AST 113 U/L (14-36); African American GFR (CKD) 85 (>60 ml/min/1.73 sqM); Albumin 3.2 g/dL (3.5-5.0); Alkaline Phosphatase 88 U/L (38-126); Anion Gap 10 mmol/L; Blood Urea Nitrogen 16 mg/dL (7-17); Calcium 8.2 mg/dL (8.4-10.2); Carbon Dioxide 23 mmol/L (22-30); Chloride 104 mmol/L (98-107); Glucose 250 mg/dL (74-99); Non-African American GFR(CKD) 74 (>60 ml/min/1.73 sqM); Sodium 137 mmol/L (137-145); Total Protein 5.8 g/dL (6.3-8.2)
[2023-05-31 14:56] LABS: Potassium 3.3 mmol/L (3.5-5.1)
[2023-05-31 16:48] LABS: Glucose,Whole Blood 232 mg/dL (70-110)
[2023-05-31 20:36] LABS: Glucose,Whole Blood 146 mg/dL (70-110)
[2023-05-31] MEDS ORDERED: METOPROLOL TARTRATE 25 MG TAB PO SCH (21:00)
[2023-05-31] MEDS: POTASSIUM CHLORIDE ER 20 MEQ TAB.ER PO SCH (22:00)
[2023-06-01 05:02] LABS: Glucose,Whole Blood 189 mg/dL (70-110)
--- NOTE | 2023-06-01 07:26 | P.PN ---
Subjective Progress Note Date: 05/31/23 This is a 62-year-old female who was recently admitted for atrial fibrillation along with acute CHF exacerbation. Patient was also being followed by infectious disease maintained on antibiotics with concerns of possible infectious process although Zosyn is now being discontinued and being closely monitored off antibiotics and his white count has resolved. Cardiology following making adjustments to medications including holding lisinopril and reducing beta-jose g with plans for possible cardioversion with JUANY in the a.m. Patient is afebrile with no reported chest pain or shortness of breath. P atient tolerating diet with no reported nausea or vomiting noted. Review of systems: Constitutional: No reports of fatigue, fever, or chills Cardiovascular: No reports of chest pain or palpitations Respiratory: No reports of shortness of breath or cough GI: No reports of nausea, no reports of vomiting, no diarrhea : No reports of dysuria or retention Neurovascular: reports of generalized weakness All medications have been reviewed PHYSICAL EXAMINATION: GENERAL: The patient is alert and oriented x4, Well developed, well nourished. HEENT: Pupils are round and equally reacting to light. EOMI. no scleral icterus. No conjunctival pallor. Normocephalic, atraumatic. No pharyngeal erythema. No thyromegaly. CARDIOVASCULAR: S1 and S2 muffled PULMONARY: diminished breath sounds bilaterally with no wheezing or rhonchi noted. ABDOMEN: soft. Nontender on exam. obese. non-distended, normoactive bowel sounds. No palpable organomegaly. MUSCULOSKELETAL: No joint swelling or deformity. EXTREMITIES: No cyanosis, clubbing, or pedal edema. NEUROLOGICAL: Gross neurological examination did not reveal any focal deficits. SKIN: No rashes. Assessment: Atrial fibrillation with RVR, scheduled to undergo JUANY with possible cardioversion on 06/01/2023, paroxysmal versus persistent Congestive heart failure, acute exacerbation with acute on chronic systolic dysfunction, EF is 40% Leukocytosis History of diabetes mellitus, type II Hypertension history History of coronary artery disease Ischemic cardiomyopathy GI prophylaxis DVT prophylaxis Full code Plan: Recommend to continue with current medications and management per cardiology services. Patient will be n.p.o. at midnight as patient will undergo JUANY with possible cardioversion for atrial fibrillation Acute CHF exacerbation being treated. Home meds reviewed and resumed as appropriate. Patient continues on IV Lasix at this time Patient was continued on Zosyn with infectious disease following and is being discontinued as white count has resolved and patient being monitored off antibiotic therapy Follow-up with repeat labs to monitor kidney functions. Replace electrolytes per protocol Will discuss further with cardiology regarding discharge planning postintervention. Will await report Possible discharge planning in the next 24 to 48 hours The impression and plan of care has been dictated by Britt Mendez, nurse practitioner as directed. Dr. Ellis MD I have performed a history and examination and MDM of this patient, discussed the same with the dictator, and agree with the dictator's assessment and plan as written ,documented as a scribe. Based on total visit time, I have performed more than 50% of the visit. Any additional findings or plans will be noted. Objective - Vital Signs Vital signs: Vital Signs Temp 97.6 F 06/01/23 04:00 Pulse 114 H 06/01/23 04:00 Resp 18 06/01/23 04:00 BP 84/57 06/01/23 04:00 Pulse Ox 97 06/01/23 04:00 FiO2 Intake & Output 05/31/23 06/01/23 06/01/23 18:59 06:59 18:59 Intake Total 1222 Output Total 300 Balance 1222 -300 Weight 70.7 kg Intake: Oral 1222 Output: Urine 300 Other: Voiding Method External Catheter External Catheter # Voids 2 1 # Bowel Movements 1 - Labs CBC & Chem 7: 05/31/23 14:26 05/31/23 14:26 Labs: Abnormal Lab Results - Last 24 Hours (Table) 05/31/23 05/31/23 05/31/23 Range/Units 11:33 14:26 14:26 RDW 17.7 H (11.5-15.5) % Potassium 3.3 L (3.5-5.1) mmol/L Glucose 250 H (74-99) mg/dL POC Glucose (mg/dL) 163 H (70-110) mg/dL Calcium 8.2 L (8.4-10.2) mg/dL AST 113 H (14-36) U/L ALT 249 H (4-34) U/L Total Protein 5.8 L (6.3-8.2) g/dL Albumin 3.2 L (3.5-5.0) g/dL 05/31/23 05/31/23 06/01/23 Range/Units 16:40 20:22 05:00 RDW (11.5-15.5) % Potassium (3.5-5.1) mmol/L Glucose (74-99) mg/dL POC Glucose (mg/dL) 232 H 146 H 189 H (70-110) mg/dL Calcium (8.4-10.2) mg/dL AST (14-36) U/L ALT (4-34) U/L Total Protein (6.3-8.2) g/dL Albumin (3.5-5.0) g/dL
[2023-06-01 09:48] LABS: African American GFR (CKD) 77 (>60 ml/min/1.73 sqM); Anion Gap 11 mmol/L; Blood Urea Nitrogen 18 mg/dL (7-17); Calcium 8.5 mg/dL (8.4-10.2); Carbon Dioxide 21 mmol/L (22-30); Chloride 106 mmol/L (98-107); Glucose 117 mg/dL (74-99); Non-African American GFR(CKD) 67 (>60 ml/min/1.73 sqM); Potassium 3.8 mmol/L (3.5-5.1); Sodium 138 mmol/L (137-145)
[2023-06-01 11:28] LABS: Glucose,Whole Blood 147 mg/dL (70-110)
[2023-06-01] MEDS: SODIUM CHLORIDE 0.9% 500 ML 500 ML IV ONE (12:56)
[2023-06-01] MEDS ORDERED: PHENYLEPHRINE 10 MG/ML VIAL ONE (13:00)
[2023-06-01] MEDS ORDERED: PROPOFOL 10 MG/ML 20 ML VIAL IV ONE (13:00)
[2023-06-01] MEDS: BENZOCAINE SPRAY 1 CAN TOPICAL ONE (13:03)
[2023-06-01 16:40] LABS: Glucose,Whole Blood 131 mg/dL (70-110)
--- NOTE | 2023-06-01 18:05 | P.PCN ---
Date of Procedure: 06/01/23 Operative Findings: Cardioversion Report Performing physician Roberto Quezada M.D. Procedure performed Successful cardioversion of atrial fibrillation to normal sinus mechanism using 200 J at first attempt Indication Symptomatic atrial fibrillation Complication None Level of sedation The procedure was performed under deep sedation using propofol with INVESTIGATOR FRAUD in the room Procedure description After obtaining an informed consent the patient was brought to the recovery room. Sedation was introduced using propofol with INVESTIGATOR FRAUD in the room. Transesophageal echocardiogram was performed and showed no evidence of intracardiac thrombus Subsequently the patient cardioverted from atrial fibrillation to normal sinus mechanism using 200 J and first attempt Conclusion Successful cardioversion of atrial fibrillation to normal sinus mechanism using 200 J Postprocedure management Continue the current medical regimen Continue oral anticoagulation Follow-up with the patient
--- NOTE | 2023-06-01 18:07 | P.PCN ---
Date of Procedure: 06/01/23 Operative Findings: TRANSESOPHAGEAL ECHOCARDIOGRAM FOUNT[facility] PEN TURNER: SHOAIB PORTILLO MD, RPVI INDICATION: Rule out intracardiac thrombus before cardioversion SEDATION: Conscious sedation COMPLICATION: None LEVEL OF SEDATION The procedure was performed using propofol with VALVER in the room PROCEDURE DESCRIPTION: After obtaining an informed consent, the patient was brought to recovery room. Pulse oximetry and heart monitors were attached to the patient. The patient throat was sprayed using lidocaine. The patient was turned into left lateral position. After that a bite guard was placed. After an appropriate conscious sedation was initiated, the transesophageal echocardiogram was advanced through a bite guard into the mid esophagus. A 2-D echocardiogram images, color Doppler images, continuous wave images, pulse-wave images, of various cardiac structure were performed. After that the transesophageal echocardiogram probe was advanced into the stomach and fixed to obtain transgastric view was. The probe was brought into the mid esophagus. Inter-atrial septum was interrogated using 2D images, color Doppler images. After that transesophageal echocardiogram was withdrawn out and upon withdrawing the descending thoracic aorta all the way up to the arch was evaluated. CONCLUSION: 1. The left atrial appendage was not visualized and probably ligated during the open heart surgery 2. No evidence of any intracardiac thrombus identified 3. Impaired LV function with EF between 35 to 40% and dilated left ventricle 4. Moderate mitral regurgitation 5. Trileaflet aortic valve with no stenosis or regurgitation 6. No evidence of pericardial effusion
[2023-06-01 19:59] LABS: Glucose,Whole Blood 190 mg/dL (70-110)
[2023-06-02 04:37] VITALS: TEMP 97.6
--- NOTE | 2023-06-02 05:43 | P.PN ---
Subjective Progress Note Date: 06/01/23 This is a 62-year-old female who was recently admitted for atrial fibrillation along with acute CHF exacerbation. Patient was also being followed by infectious disease maintained on antibiotics with concerns of possible infectious process although Zosyn is now being discontinued and being closely monitored off antibiotics and his white count has resolved. Cardiology following making adjustments to medications including holding lisinopril and reducing beta-jose g with plans for possible cardioversion with JUANY in the a.m. Patient is afebrile with no reported chest pain or shortness of breath. P atient tolerating diet with no reported nausea or vomiting noted. 06/01/2023 Patient is seen in follow-up currently n.p.o. as patient is scheduled to undergo JUANY with cardioversion with cardiology for persistent/paroxysmal atrial fibrillation. Patient follows with Dr. Gonzalez cardiology in the outpatient setting and has been instructed to follow-up with him on discharge. Patient also being followed by infectious disease with concerns of infectious etiology although has been off antibiotics and being closely monitored. White count is normal. Patient is afebrile denies chest pain or shortness of breath. Patient reports will be going home with family on discharge. Encouraged to increase activity as tolerated. Resume diet once procedure is complete and will follow- up with cardiology report. Review of systems: Constitutional: No reports of fatigue, fever, or chills, reports some anxiety about the cardioversion Cardiovascular: No reports of chest pain or palpitations Respiratory: No reports of shortness of breath or cough GI: No reports of nausea, no reports of vomiting, no diarrhea : No reports of dysuria or retention Neurovascular: reports of generalized weakness All medications have been reviewed PHYSICAL EXAMINATION: GENERAL: The patient is alert and oriented x4, Well developed, well nourished. HEENT: Pupils are round and equally reacting to light. EOMI. no scleral icterus. No conjunctival pallor. Normocephalic, atraumatic. No pharyngeal erythema. No thyromegaly. CARDIOVASCULAR: S1 and S2 muffled PULMONARY: diminished breath sounds bilaterally with no wheezing or rhonchi noted. ABDOMEN: soft. Nontender on exam. obese. non-distended, normoactive bowel sounds. No palpable organomegaly. MUSCULOSKELETAL: No joint swelling or deformity. EXTREMITIES: No cyanosis, clubbing, or pedal edema. NEUROLOGICAL: Gross neurological examination did not reveal any focal deficits. SKIN: No rashes. Assessment: Atrial fibrillation with RVR, status post JUANY with cardioversion on 06/01/2023, paroxysmal versus persistent Congestive heart failure, acute exacerbation with acute on chronic systolic dysfunction, EF is 40% Leukocytosis, resolved History of diabetes mellitus, type II Hypertension history History of coronary artery disease Ischemic cardiomyopathy GI prophylaxis DVT prophylaxis Full code Plan: Recommend to continue with current medications and management per cardiology services. Patient underwent JUANY with successful cardioversion for atrial fibrillation after 1 shock Patient was continued on Zosyn with infectious disease following and is being discontinued as white count has resolved and patient being monitored off antibiotic therapy Will discuss further with cardiology regarding discharge planning post- intervention. Will await report Continue telemetry monitoring overnight with possible discharge planning in the next 24 hours The impression and plan of care has been dictated by Britt Mendez, nurse practitioner as directed. Dr. Ellis MD I have performed a history and examination and MDM of this patient, discussed the same with the dictator, and agree with the dictator's assessment and plan as written ,documented as a scribe. Based on total visit time, I have performed more than 50% of the visit. Any additional findings or plans will be noted. Objective - Vital Signs Vital signs: Vital Signs Temp 97.6 F 06/01/23 04:00 Pulse 69 06/01/23 14:10 Resp 16 06/01/23 14:10 BP 92/61 06/01/23 14:10 Pulse Ox 96 06/01/23 14:10 FiO2 Intake & Output 05/31/23 06/01/23 06/01/23 18:59 06:59 18:59 Intake Total 1222 500 Output Total 300 Balance 1222 -300 500 Weight 70.7 kg Intake: IV 500 Oral 1222 Output: Urine 300 Other: Voiding Method External Catheter External Catheter External Catheter # Voids 2 1 # Bowel Movements 1 - Labs CBC & Chem 7: 05/31/23 14:26 06/01/23 07:31 Labs: Abnormal Lab Results - Last 24 Hours (Table) 05/31/23 05/31/23 05/31/23 Range/Units 14:26 14:26 16:40 RDW 17.7 H (11.5-15.5) % Potassium 3.3 L (3.5-5.1) mmol/L Carbon Dioxide (22-30) mmol/L BUN (7-17) mg/dL Glucose 250 H (74-99) mg/dL POC Glucose (mg/dL) 232 H (70-110) mg/dL Calcium 8.2 L (8.4-10.2) mg/dL AST 113 H (14-36) U/L ALT 249 H (4-34) U/L Total Protein 5.8 L (6.3-8.2) g/dL Albumin 3.2 L (3.5-5.0) g/dL 05/31/23 06/01/23 06/01/23 Range/Units 20:22 05:00 07:31 RDW (11.5-15.5) % Potassium (3.5-5.1) mmol/L Carbon Dioxide 21 L (22-30) mmol/L BUN 18 H (7-17) mg/dL Glucose 117 H (74-99) mg/dL POC Glucose (mg/dL) 146 H 189 H (70-110) mg/dL Calcium (8.4-10.2) mg/dL AST (14-36) U/L ALT (4-34) U/L Total Protein (6.3-8.2) g/dL Albumin (3.5-5.0) g/dL 06/01/23 Range/Units 11:26 RDW (11.5-15.5) % Potassium (3.5-5.1) mmol/L Carbon Dioxide (22-30) mmol/L BUN (7-17) mg/dL Glucose (74-99) mg/dL POC Glucose (mg/dL) 147 H (70-110) mg/dL Calcium (8.4-10.2) mg/dL AST (14-36) U/L ALT (4-34) U/L Total Protein (6.3-8.2) g/dL Albumin (3.5-5.0) g/dL
[2023-06-02 06:14] LABS: Glucose,Whole Blood 150 mg/dL (70-110)
[2023-06-02 07:52] VITALS: RESP 16
--- NOTE | 2023-06-02 11:19 | P.PN ---
Subjective HISTORY OF PRESENT ILLNESS: This is a very pleasant 62-year-old female patient with a past medical history significant for coronary artery disease status post CABG in 2019 with unknown details and also cardiomyopathy with an echo from January 2023 showing an ejection fraction of 40% as well as hypertension and dyslipidemia and diabetes and permanent atrial fibrillation and lower extremities peripheral arterial disease status post amputation of the left metatarsal foot. The patient presented to the hospital with a week and a half history of progressive exertional dyspnea associated with orthopnea and associated with bilateral lower extremities edema with no change in the weight. No symptoms of chest pain or chest discomfort or dizziness or lightheadedness or any feeling of heart racing or fluttering or any presyncope or syncope. The patient was receiving antibiotics for osteomyelitis but since she stopped the antibiotic about a week and a half ago she noticed that she has been experiencing the symptoms of shortness of breath and lower extremities edema. I am not quite sure if the patient is physically very active. No history of congestive heart failure but she does have history of cardiomyopathy with echo from 2022 showed an EF around 40%. No significant valvular abnormalities noted. The EKG showed atrial fibrillation with controlled heart rate. NT proBNP is 25,000. Chest x-ray showed finding consistent with heart failure. For some reason the patient was not on any diuretics at home. She was diagnosed with renal failure in the past and her GFR during this admission is within normal limits. Currently she is on Lasix IV. Currently she is on Cardizem IV at 5 mg/h as well. She is on metoprolol at 50 mg p.o. twice daily. Examination is remarkable for bilateral lower extremities edema with diminished breathing sounds bilaterally and irregular rhythm. 05/30/2023 Patient examined this morning at the bedside. Patient currently denies chest pain or pressure. She reports improvement in her shortness of breath and also with her lower extremity edema. She remains on IV diuretics. Telemetry reveals atrial fibrillation with a heart rate around [id number]. Patient's blood pressures have been on the lower side. Blood pressure this morning 96/56. She did receive all her morning cardiac medications. Repeat blood pressure 82/65. 05/31/2023 Patient examined this morning at the bedside. Patient denies chest pain or pressure. She denies shortness of breath. Patient reports mild dizziness with ambulation. Patient's blood pressures have been on the lower side. Her amlodipine was discontinued yesterday and parameters were placed on her lisinopril. Telemetry reveals atrial fibrillation with a heart rate around 100. Patient's blood pressure remains low this morning with a systolic in the 80s. Patient states that she sees Dr. Gonzalez out of [facility]. She states that she has had atrial fibrillation since 2019. She is unsure of how often she goes in and out of atrial fibrillation. She does report that she was scheduled to have an event monitor placed at his office to assess for A-fib burden. 06/02/2023 Patient examined this morning at the bedside. She is status post JUANY and cardio version with Dr. Quezada. She is maintaining sinus mechanism this morning. Patient states she is feeling better compared to yesterday. She denies any chest pain or pressure. She denies any shortness of breath. Blood pressures remain borderline with a systolic in the 90s. PHYSICAL EXAM: VITAL SIGNS: Reviewed. GENERAL: Well-developed in no acute distress. NECK: Supple. No JVD or thyromegaly LUNGS: Respirations even and unlabored. Lungs essentially clear to auscultation bilaterally. HEART: Regular rate and rhythm. S1 and S2 heard. EXTREMITIES: Normal range of motion. No clubbing or cyanosis. Peripheral pulses intact. Trace bilateral lower extremity edema ASSESSMENT: Shortness of breath Acute heart failure with reduced EF, 40% Leukocytosis Atrial fibrillation with RVR, paroxysmal versus persistent, not new onset per patient Status post JUANY and cardioversion maintaining sinus mechanism Hypotension Coronary artery disease with previous CABG, 2019 Ischemic cardiomyopathy Hypertension Hyperlipidemia Diabetes PLAN: Continue current cardiac medications Amiodarone taper at discharge: 400 mg twice a day for 1 week then decrease to 200 mg twice a day for 1 week, then decrease to 200 mg daily Patient is stable for discharge home today from a cardiac standpoint Patient to follow-up postdischarge with her primary managing supervisor, Dr. Gonzalez Nurse practitioner note has been reviewed by physician. Signing provider agrees with the documented findings, assessment, and plan of care documented by AUDIO VISUAL ARTS DIRECTOR as a scribe. Objective - Vital Signs Vital signs: Vital Signs Temp 97.6 F 06/02/23 07:45 Pulse 78 06/02/23 07:45 Resp 16 06/02/23 07:45 BP 93/56 06/02/23 07:45 Pulse Ox 100 06/02/23 07:45 FiO2 Intake & Output 03/06/24 03/07/24 03/07/24 18:59 06:59 18:59 Intake Total 658 540 118 Output Total 2700 Balance 658 -2160 118 Weight 70.1 kg Intake: IV 300 Oral 358 540 118 Output: Urine 2700 Other: Voiding Method External Catheter Bedside Commode # Voids 1 # Bowel Movements 1 - Labs CBC & Chem 7: 05/31/23 14:26 06/01/23 07:31 Labs: Abnormal Lab Results - Last 24 Hours (Table) 06/01/23 06/01/23 06/01/23 Range/Units 11:26 16:38 19:57 POC Glucose (mg/dL) 147 H 131 H 190 H (70-110) mg/dL 06/02/23 Range/Units 06:13 POC Glucose (mg/dL) 150 H (70-110) mg/dL
[2023-06-02 11:25] LABS: Glucose,Whole Blood 222 mg/dL (70-110)
[2023-06-02 12:13] VITALS: BP 103/72; PULSE 71
--- NOTE | 2023-06-02 13:15 | P.PN ---
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 On today's evaluation that is 06/01/2023,the patient remains to be afebrile, patient is on room air not requiring supplemental oxygen and denies any shortness of breath no chest pain or cough.Patient denies having any nausea or vomiting, no abdominal pain and no diarrhea has been reported. Patient did have a creatinine of 0.91 white count normal 7.7 as of yesterday no CBC was done today Objective - Vital Signs Vital signs: Vital Signs Temp 97.6 F 06/01/23 04:00 Pulse 107 H 06/01/23 12:00 Resp 16 06/01/23 12:00 BP 105/75 06/01/23 12:00 Pulse Ox 99 06/01/23 12:00 FiO2 Intake & Output 05/31/23 06/01/23 06/01/23 18:59 06:59 18:59 Intake Total 1222 Output Total 300 Balance 1222 -300 Weight 70.7 kg Intake: Oral 1222 Output: Urine 300 Other: Voiding Method External Catheter External Catheter External Catheter # Voids 2 1 # Bowel Movements 1 - Exam GENERAL DESCRIPTION: Middle-age female lying in bed in no distress RESPIRATORY SYSTEM: Unlabored breathing , decreased breath sounds at bases HEART: S1 S2 regular rate and rhythm , ABDOMEN: Soft , no tenderness EXTREMITIES: No edema feet - Labs CBC & Chem 7: 05/31/23 14:26 06/01/23 07:31 Labs: Abnormal Lab Results - Last 24 Hours (Table) 05/31/23 05/31/23 05/31/23 Range/Units 14:26 14:26 16:40 RDW 17.7 H (11.5-15.5) % Potassium 3.3 L (3.5-5.1) mmol/L Carbon Dioxide (22-30) mmol/L BUN (7-17) mg/dL Glucose 250 H (74-99) mg/dL POC Glucose (mg/dL) 232 H (70-110) mg/dL Calcium 8.2 L (8.4-10.2) mg/dL AST 113 H (14-36) U/L ALT 249 H (4-34) U/L Total Protein 5.8 L (6.3-8.2) g/dL Albumin 3.2 L (3.5-5.0) g/dL 05/31/23 06/01/23 06/01/23 Range/Units 20:22 05:00 07:31 RDW (11.5-15.5) % Potassium (3.5-5.1) mmol/L Carbon Dioxide 21 L (22-30) mmol/L BUN 18 H (7-17) mg/dL Glucose 117 H (74-99) mg/dL POC Glucose (mg/dL) 146 H 189 H (70-110) mg/dL Calcium (8.4-10.2) mg/dL AST (14-36) U/L ALT (4-34) U/L Total Protein (6.3-8.2) g/dL Albumin (3.5-5.0) g/dL 06/01/23 Range/Units 11:26 RDW (11.5-15.5) % Potassium (3.5-5.1) mmol/L Carbon Dioxide (22-30) mmol/L BUN (7-17) mg/dL Glucose (74-99) mg/dL POC Glucose (mg/dL) 147 H (70-110) mg/dL Calcium (8.4-10.2) mg/dL AST (14-36) U/L ALT (4-34) U/L Total Protein (6.3-8.2) g/dL Albumin (3.5-5.0) g/dL Assessment and Plan (1) Leukocytosis Current Visit: Yes Status: Acute Code(s): D72.829 - ELEVATED WHITE BLOOD CELL COUNT, UNSPECIFIED SNOMED Code(s): 004085502 Plan: 1patient presented to hospital with shortness of breath of some palpitation and this patient noticed to have elevated white count also noticed to have elevated liver enzymes keeping in mind her symptoms of nausea and elevated liver enzymes concern for possible gallbladder disease versus cholangitis 2-patient did have resolution of her leukocytosis questionable reactive as workup has been negative for infectious etiology including negative CT abdominal pelvis and chest x-ray 3-Patient seems to be doing well off antibiotic therapy and will monitor closely off antibiotics Dictation was produced using [employer] dictation software. please excuse any grammatical, word or spelling errors. Time with Patient: Less than 30
--- NOTE | 2023-06-02 13:16 | P.PN ---
Subjective Progress Note Date: 06/02/23 Principal diagnosis: Reason for follow-up is leukocytosis Patient is a 62-year-old female with a past medical history significant for diabetes mellitus hypertension heart failure with coronary disease in this patient who did have history of diabetic foot infection requi ring transmetatarsal amputation of the left foot patient did have osteomyelitis for the patient has completed her antibiotic therapy presenting to the hospital with palpitation shortness of breath also noticed to have elevated white count and elevated liver enzymes CT abdominal pelvis did not show any acute changes. On today's evaluation that is 06/02/2023, the patient continues to be afebrile, the patient is on room air and breathing comfortably, the Pt denies having any chest pain or cough, the patient denies having any abdominal pain no vomiting or any diarrhea has been reported by the nursing staff no new labs today Objective - Vital Signs Vital signs: Vital Signs Temp 97.6 F 06/02/23 07:45 Pulse 71 06/02/23 12:13 Resp 16 06/02/23 12:13 BP 103/72 06/02/23 12:13 Pulse Ox 100 06/02/23 12:13 FiO2 Intake & Output 06/01/23 06/02/23 06/02/23 18:59 06:59 18:59 Intake Total 658 540 118 Output Total 2700 Balance 658 -2160 118 Weight 70.1 kg Intake: IV 300 Oral 358 540 118 Output: Urine 2700 Other: Voiding Method External Catheter Bedside Commode # Voids 1 # Bowel Movements 1 - Exam GENERAL DESCRIPTION: Middle-age female lying in bed in no distress RESPIRATORY SYSTEM: Unlabored breathing , decreased breath sounds at bases HEART: S1 S2 regular rate and rhythm , ABDOMEN: Soft , no tenderness EXTREMITIES: Left transmetatarsal amputation site wound is healed no redness no drainage - Labs CBC & Chem 7: 05/31/23 14:26 06/01/23 07:31 Labs: Abnormal Lab Results - Last 24 Hours (Table) 06/01/23 06/01/23 06/02/23 Range/Units 16:38 19:57 06:13 POC Glucose (mg/dL) 131 H 190 H 150 H (70-110) mg/dL 06/02/23 Range/Units 11:24 POC Glucose (mg/dL) 222 H (70-110) mg/dL Assessment and Plan (1) Leukocytosis Current Visit: Yes Status: Acute Code(s): D72.829 - ELEVATED WHITE BLOOD CELL COUNT, UNSPECIFIED SNOMED Code(s): 736619869 Plan: 1patient presented to hospital with shortness of breath of some palpitation and this patient noticed to have elevated white count also noticed to have elevated liver enzymes keeping in mind her symptoms of nausea and elevated liver enzymes concern for possible gallbladder disease versus cholangitis 2-patient did have resolution of her leukocytosis questionable reactive as workup has been negative for infectious etiology including negative CT abdominal pelvis and chest x-ray 3-Patient seems to be doing well off antibiotic therapy and no need for antibiotics on discharge Dictation was produced using [employer] dictation software. please excuse any grammatical, word or spelling errors. Time with Patient: Less than 30
[2023-06-02 13:59] VITALS: BMI 23.5
== END 2023-06-02 16:19 | disposition home health service (06) | DRG 291 ==
LOC: EC 13:48 → 3SCARD 19:15
PROVIDERS: ADMIT Internal Medicine; ATTEND Internal Medicine
PROC: B24BZZ4 Ultrasonography of Heart with Aorta, Transesophageal (ICD-10-PCS; 2023-06-01)
PROC: 5A2204Z Restoration of Cardiac Rhythm, Single (ICD-10-PCS; principal; 2023-06-01 13:00)
DX: I11.0 Hypertensive heart disease with heart failure (principal); I50.23 Acute on chronic systolic (congestive) heart failure; E87.20 Acidosis, unspecified; I48.21 Permanent atrial fibrillation; I95.9 Hypotension, unspecified; E11.51 Type 2 diabetes mellitus with diabetic peripheral angiopathy without gangrene; E11.65 Type 2 diabetes mellitus with hyperglycemia; Z89.422 Acquired absence of other left toe(s); Z79.01 Long term (current) use of anticoagulants; Z95.1 Presence of aortocoronary bypass graft; E78.5 Hyperlipidemia, unspecified; I25.10 Atherosclerotic heart disease of native coronary artery without angina pectoris; I44.4 Left anterior fascicular block; I25.5 Ischemic cardiomyopathy; Z96.60 Presence of unspecified orthopedic joint implant; Z79.82 Long term (current) use of aspirin; Z79.84 Long term (current) use of oral hypoglycemic drugs; Z79.899 Other long term (current) drug therapy; Z91.048 Other nonmedicinal substance allergy status; Z91.040 Latex allergy status; Z86.14 Personal history of Methicillin resistant Staphylococcus aureus infection; Z87.39 Personal history of other diseases of the musculoskeletal system and connective tissue
CPT/HCPCS: 36415; 71045; 71046; 74177; 76705; 80048; 80053; 80074; 80076; 82009; 83605; 83735; 83880; 84145; 84484; 85025; 85379; 85610; 85730; 86140; 87636; 92960; 93005; 93312; 93320; 93325; 94760; 96365; 96366; 96375; 96376; 99291